=== PATIENT | female | born 1935 | race Caucasian/White ===

== ENCOUNTER 2017-06-22 09:17 | Observation (INO) | payer MEDICARE, OTHER, BC ==
[2017-06-22] MEDS: Sodium Chloride 0.9% 1,000 ML IV SCH ×2 (09:32→23:29)
[2017-06-22] MEDS ORDERED: Sodium Chloride 0.9% 500 ML IV ONE (09:40)
[2017-06-22] MEDS ORDERED: Albuterol/Ipratropium 3.0-0.5 MG/3 ML Neb Soln NEB ONE (09:45)
--- NOTE | 2017-06-22 11:18 | CR ---
DATE OF SERVICE: 06/22/17 CLINICAL DATA: SOB PORTABLE CHEST: Comparison is made to a prior exam dated 06/01/17. The heart size is stable. There is calcification of the aortic arch. There are mild interstitial changes throughout both lungs. There are mild atelectatic changes in both lower lungs. No pneumothorax. No pleural effusions. No areas of consolidation. [id number] MTDD
[2017-06-22] MEDS ORDERED: Furosemide 20 MG/2 ML VIAL ONE (12:24)
[2017-06-22] MEDS: Furosemide 20 MG/2 ML VIAL IVPUSH SCH (18:32)
[2017-06-22] MEDS: [UNRECOGNIZED DRUG - REMARK] NASBOTH SCH (18:41)
[2017-06-22] MEDS: ACETAMINOPHEN PO SCH (19:59)
[2017-06-22] MEDS ORDERED: Furosemide 100 MG/10 ML SDV IVPUSH SCH (20:00)
[2017-06-22] MEDS: Non-Formulary Medication 1 Each (Fluticasone/Salmeterol [Advair 250-50 Diskus] 1 PUFF) INH SCH ×2 (20:00→20:01)
[2017-06-22] MEDS: ATORVASTATIN CALCIUM 10 MG PO SCH (20:00)
[2017-06-22] MEDS ORDERED: Furosemide 20 MG/2 ML VIAL IVPUSH SCH (20:00)
[2017-06-22] MEDS: Tiotropium Inhaler 18 MCG Inhalation Powder Cap Kit of 5 INH SCH (20:02)
--- NOTE | 2017-06-22 20:26 | ER ---
Date of service - 06-22-17 HISTORY OF PRESENT ILLNESS: An 82-year-old lady who comes in with her and son with complaints of weakness and shortness of breath. The patient states she has not felt good all month, she just feels sick. She feels very tired. She does not think she has been coughing up any kind of phlegm. She denies any problems with wheezing and she does not think she has been running a fever. No other family members are currently sick. PHYSICAL EXAMINATION: GENERAL APPEARANCE: The patient is awake and alert. She is in mild respiratory distress initially. This seems to happen with any kind of movement or talking. VITAL SIGNS: Reviewed. Initial blood pressure is 130/52. O2 sats are in the upper 70s on room air. The patient tells us that she normally runs in the high 80s at home. She uses oxygen at night only. Pulse is 127. Respirations 24. HEENT: Ears, TMs are dull. Nares are patent. Oral mucous membranes are dry. Tonsils are not enlarged or injected. Pharynx not inflamed. Neck: Supple. LUNGS: Reveal reduced air exchange in both bases. I do not hear any wheezes or rales initially. CARDIAC: Heart sounds distinct without murmurs. ABDOMEN: Soft, protuberant, nontender to palpation. Bowel sounds are present. SKIN: Warm and dry. EXTREMITIES: There is no lower extremity edema. LABORATORY DATA: Labs include a CBC showing a slightly elevated white count of 11.7. CMP shows a BUN of 21, creatinine 1.02, GFR is 52, glucose 128, nonfasting. BNP is 3322. INITIAL TREATMENT: The patient was placed on oxygen, which did bring her sats up. She was mouth breathing, therefore, we put her on a non-rebreather mask and her sats jumped to 100% on 5 L. We weaned her down and she still maintained in the low 90s on 2 L. INITIAL TREATMENT PLAN: The patient is given a bolus of 500 mL of normal saline. She was given a DuoNeb treatment as well and she stated that she felt much better after this had been done. Chest x-ray was obtained. I can see some mild pulmonary congestion. X-ray report is negative for any acute findings. DIAGNOSES: 1. Congestive heart failure. 2. Weakness. 3. Mild dehydration. TREATMENT PLAN: The patient will be admitted for observation purposes. She is here with her and son, they agree to do this. The patient initially is reluctant to be admitted, but does agree to do this. She will be admitted to observation. CRS/MODL /[id number] MTDD
[2017-06-23] MEDS ORDERED: Non-Formulary Medication 1 Each (Atenolol [Tenormin] 50 MG) PO SCH (08:00)
[2017-06-23] MEDS ORDERED: Non-Formulary Medication 1 Each (Amlodipine Besylate/Benazepril [Amlodipine-Benazepril 5-2 PO SCH (08:00)
[2017-06-23] MEDS: Non-Formulary Medication 1 Each (Fluticasone/Salmeterol [Advair 250-50 Diskus] 1 PUFF) INH SCH ×2 (08:52→19:39)
[2017-06-23] MEDS: Albuterol/Ipratropium 3.0-0.5 MG/3 ML Neb Soln NEB PRN ×2 (08:52→16:15)
[2017-06-23] MEDS: Non-Formulary Medication 1 Each (Aspirin [Bayer Chewable Aspirin] 81 MG) PO SCH (08:53)
[2017-06-23] MEDS: ATENOLOL 25 MG PO SCH (08:54)
[2017-06-23] MEDS: [UNRECOGNIZED DRUG - REMARK] NASBOTH SCH (08:55)
[2017-06-23] MEDS: Furosemide 20 MG/2 ML VIAL IVPUSH SCH ×2 (09:24→14:54)
--- NOTE | 2017-06-23 10:21 | HP ---
HISTORY OF PRESENT ILLNESS: This patient is being admitted for observation due to an exacerbation of CHF, which is also causing weakness and she has mild dehydration symptoms. The patient was seen in the emergency room with complaints of not feeling well for at least 3 weeks, feeling weak and sick. She is tired. Lab work revealed a white count of 11.7. Kidney function was okay with a creatinine of 1.02, BUN 21. BNP is 3,332. UA was also obtained through the emergency room, showing a small amount of proteinuria, 75 to 100 wbc's, and a few bacteria. The patient's vital signs have been okay. Blood pressure initially 130/52, pulse 108, she is afebrile. O2 saturations were initially in the low 70s, but with oxygen applied, she has recovered into the upper 90s. The oxygen was then turned down to 2 L, and she maintained a saturation of 92% with this. PAST MEDICAL HISTORY: 1. Hypertension. 2. History of hiatal hernia. 3. History of seasonal allergies. 4. COPD. PAST SURGICAL HISTORY: 1. Carotid endarterectomy. 2. Ankle fracture in the past, which did require surgery. SOCIAL HISTORY: The patient is . She is still living at home with her . She is a former smoker, telling me that she quit years ago, but the damage was to some degree done. OBJECTIVE: GENERAL APPEARANCE: While seeing the patient a few hours after being admitted to the hospital, she states that she is definitely feeling better. She has had Lasix 20 mg IV. She has voided 1200 mL out using a bedside commode, which she has been doing well with. Her O2 saturations are now stable, even with using the bedside commode with 2 L of oxygen per nasal cannula. LUNGS: Reveal ongoing reduction of air exchange in both bases. I do not hear any rales, wheezes, or rhonchi at this time. SKIN: Warm and dry. CARDIAC: Heart sounds distinct without murmurs. EXTREMITIES: The patient does not have any lower extremity edema. ASSESSMENT AND PLAN: She will be here for observation at least 1 day. She will be given Lasix 20 mg b.i.d. starting out in IV fashion. We will see how she does tomorrow and maybe can switch her over to p.o. at that time. Her IV fluids are running at 30 mL an hour. We did get an EKG and troponin level today, which were also negative. If the patient does continue to improve, there is a reasonable chance she will be able to be discharged tomorrow. PAVEL/MODL /[id number]
--- NOTE | 2017-06-23 12:27 | PN ---
DATE OF VISIT: 06/23/2017 SUBJECTIVE: The patient was admitted yesterday for CHF with mild dehydration and weakness. She has been doing better over the course of her stay. She was given her blood pressure medications last evening and again this morning, which is closer than 24 hours apart and her blood pressure this morning has dropped. Recent blood pressure taken this morning is 105/59, pulse is 131, O2 sats are 92%. The patient states that she feels fine. She did not need a neb treatment or inhaler during the night to help with her breathing. She slept well. Appetite has been good. OBJECTIVE: GENERAL APPEARANCE: The patient is awake and alert. No obvious distress. VITAL SIGNS: Reviewed. Again, blood pressure 105/59, pulse is around 130. She is afebrile. LUNG: The patient has end-expiratory wheezes in both upper lobes, but just minimal and mildly reduced air exchange in both bases. I do not hear any rales or rhonchi at this time. SKIN: Warm and dry. TREATMENT PLAN: The patient will be watched here for one more day. I am little concerned about her blood pressure being low. She got her medications too close together with the dosing in process and this puts her blood pressure down. She also will be given Lasix just once today, which she already has received this morning, 20 mg IV. I was contacted an hour later. The patient's blood pressure had dropped further to 70/40 and she was slightly dizzy. Normal saline was started at 250 an hour. We will give her 1 L to help compensate for the low blood pressure and the patient is instructed to stay in bed except for reducing the commode when she needs to do this with assistance. The patient states that she feels fine, just a little dizzy. She is not having any problems breathing. CRS/MODL /[id number]
[2017-06-23] MEDS: ACETAMINOPHEN PO SCH (16:42)
[2017-06-23] MEDS ORDERED: methylPREDNISolone Sodium Succinate 40 MG/1 ML SDV IVPUSH ONE (18:43)
[2017-06-23] MEDS ORDERED: ALBUTEROL INH PRN (18:46)
[2017-06-23] MEDS: Tiotropium Inhaler 18 MCG Inhalation Powder Cap Kit of 5 INH SCH (19:39)
[2017-06-23] MEDS: ATORVASTATIN CALCIUM 10 MG PO SCH (19:40)
[2017-06-23] MEDS ORDERED: Pramipexole 0.125 MG Tab PO SCH (20:15)
[2017-06-23] MEDS ORDERED: Ondansetron 4 MG Tab.DIS PO PRN (20:43)
[2017-06-23] MEDS: RANITIDINE 150 MG PO SCH (20:54)
[2017-06-24] MEDS: ACETAMINOPHEN PO SCH ×2 (01:17→07:48)
[2017-06-24] MEDS: RANITIDINE 150 MG PO SCH (07:47)
[2017-06-24] MEDS: Non-Formulary Medication 1 Each (Aspirin [Bayer Chewable Aspirin] 81 MG) PO SCH (07:47)
[2017-06-24] MEDS: [UNRECOGNIZED DRUG - REMARK] NASBOTH SCH (07:48)
[2017-06-24] MEDS: Non-Formulary Medication 1 Each (Fluticasone/Salmeterol [Advair 250-50 Diskus] 1 PUFF) INH SCH (07:48)
[2017-06-24] MEDS: Albuterol/Ipratropium 3.0-0.5 MG/3 ML Neb Soln NEB PRN (07:50)
[2017-06-24] MEDS ORDERED: TIOTROPIUM BROMIDE INH SCH (08:00)
[2017-06-24] MEDS ORDERED: RANITIDINE HCL 300 MG PO SCH (08:00)
[2017-06-24] MEDS ORDERED: Furosemide 20 MG Tab PO SCH (08:00)
[2017-06-24] MEDS ORDERED: Non-Formulary Medication 1 Each (Lidocaine 5% [Lidoderm 5%] 1 PATCH) TOP SCH (08:00)
[2017-06-24] MEDS: ATENOLOL 25 MG PO SCH (08:48)
--- NOTE | 2017-06-24 08:59 | PCM.PN ---
- General Info Date of Service: 06/24/17 Subjective Update: Pt claims that she has been feeling better today. She feels more energetic today. Has not been short of breath. No fever or chills. No cough or chest tightness. Tolerating diet well.She is on oxygen 2-4 litres/min. Functional Status: Reports: Pain Controlled, Tolerating Diet, Ambulating, Urinating, Incentive Spirometry - Review of Systems General: Denies: Fever, Weakness, Fatigue, Malaise HEENT: Denies: Sinus Congestion, Sore Throat, Rhinitis Pulmonary: Denies: Shortness of Breath, Pleuritic Chest Pain, Cough, Sputum, Wheezing Cardiovascular: Denies: Chest Pain, Lightheadedness Gastrointestinal: Denies: Abdominal Pain, Nausea, Vomiting Genitourinary: Denies: Dysuria, Frequency Musculoskeletal: Denies: Joint Pain, Joint Swelling Skin: Denies: Bruising, Pruritis, Rash Neurological: Denies: Confusion, Headache - Patient Data Vitals - Most Recent: Last Vital Signs Temp 96.8 F 06/24/17 04:00 Pulse 118 H 06/24/17 04:00 Resp 18 06/24/17 04:00 BP 106/65 06/24/17 08:48 Pulse Ox 85 L 06/24/17 04:00 Weight - Most Recent: 74.843 kg I&O - Last 24 Hours: Intake & Output 06/23/17 06/24/17 06/24/17 22:59 06:59 14:59 Intake Total 100 Output Total 350 Balance -250 Lab Results Last 24 Hours: Laboratory Results - last 24 hr 06/24/17 Range/Units 07:15 Sodium 138 (136-145) mmol/L Potassium 4.5 (3.5-5.1) mmol/L Chloride 100 (98-107) mmol/L Carbon Dioxide 26.8 (21.0-32.0) mmol/L Anion Gap 15.7 H (5.0-15.0) mmol/L BUN 25 (8-26) mg/dL Creatinine 1.08 H (0.55-1.02) mg/dL Est Cr Clr Drug Dosing 36.30 mL/min Estimated GFR (MDRD) 48 L (>60) MLS/MIN BUN/Creatinine Ratio 23.1 (6-25) Glucose 203 H D (74-100) mg/dL Calcium 8.5 (8.5-10.1) mg/dL Total Bilirubin 0.6 D (0.0-1.0) mg/dL AST 14 L (15-37) U/L ALT 13 (12-78) U/L Alkaline Phosphatase 74 (46-116) U/L B-Natriuretic Peptide 809 H D (0-450) pg/mL Total Protein 6.4 (6.4-8.2) g/dL Albumin 2.5 L (3.4-5.0) g/dL Globulin 3.9 (2.2-4.2) g/dL Albumin/Globulin Ratio 0.6 L (0.8-2.0) Jose Results Last 24 Hours: Microbiology 06/22/17 12:42 MRSA Surveillance Culture - Final Nasal, Unspecified NO MRSA ISOLATED Med Orders - Current: Current Medications Albuterol/Ipratropium (Duoneb 3.0-0.5 Mg/3 Ml) 3 ml NEB Q6H PRN PRN Reason: Shortness of Breath Stop: 06/24/17 12:00 Last Admin: 06/24/17 07:50 Dose: 3 ml Enalapril Maleate (Vasotec) 2.5 mg PO DAILY [facility] Last Admin: 06/24/17 08:48 Dose: 2.5 mg Furosemide (Lasix) 20 mg PO DAILY [facility] Last Admin: 06/24/17 08:44 Dose: Not Given Sodium Chloride (Normal Saline) 1,000 mls @ 30 mls/hr IV ASDIRECTED [facility] Last Admin: 06/22/17 23:29 Dose: 30 mls/hr Montelukast Sodium (Singulair) 10 mg PO QPM [facility] Non-Formulary Medication (Acetaminophen [Tylenol Arthritis]) 2 tab PO BID [facility] Last Admin: 06/24/17 07:48 Dose: Not Given Non-Formulary Medication (Aspirin [Kylie Chewable Aspirin]) 81 mg PO DAILY [facility] Last Admin: 06/24/17 07:47 Dose: 81 mg Non-Formulary Medication (Atorvastatin Calcium [Atorvastatin Calcium]) 10 mg PO QPM [facility] Last Admin: 06/23/17 19:40 Dose: Not Given Non-Formulary Medication (Fluticasone Propionate [Flonase Allergy Relief]) 1 - 2 spray NASBOTH DAILY [facility] Stop: 06/26/17 08:01 Last Admin: 06/24/17 07:48 Dose: Not Given Non-Formulary Medication (Fluticasone/Salmeterol [Advair 250-50 Diskus]) 1 puff INH BID [facility] Last Admin: 06/24/17 07:48 Dose: 1 puff Atenolol 25mg Tabs 1 each PO DAILY [facility] Last Admin: 06/24/17 08:48 Dose: 1 each Non-Formulary Medication (Albuterol [Ventolin Hfa]) 1 - 2 puff INH Q4HR PRN PRN Reason: Shortness of Breath Stop: 06/24/17 18:00 Non-Formulary Medication (Lidocaine 5% [Lidoderm 5%]) 1 patch TOP DAILY [facility] Ondansetron HCl (Zofran Odt) 4 mg PO Q6H PRN PRN Reason: Nausea/Vomiting Pramipexole Dihydrochloride (Mirapex) 0.125 mg PO QPM [facility] Last Admin: 06/24/17 01:17 Dose: Not Given Ranitidine HCl (Zantac) 300 mg PO BID [facility] Last Admin: 06/24/17 07:47 Dose: 300 mg Tiotropium [place] (Spiriva Handihaler) 18 mcg INH BEDTIME [facility] Last Admin: 06/23/17 19:39 Dose: 1 tab Discontinued Medications Albuterol/Ipratropium (Duoneb 3.0-0.5 Mg/3 Ml) 3 ml NEB ONETIME ONE Stop: 06/22/17 09:46 Last Admin: 06/22/17 14:20 Dose: Not Given Furosemide (Lasix) 20 mg IVPUSH BID [facility] Last Admin: 06/22/17 12:30 Dose: 20 mg Furosemide (Lasix) 20 mg IVPUSH BID [facility] Stop: 06/23/17 12:00 Furosemide (Lasix) Confirm Administered Dose 20 mg .ROUTE .STK-MED ONE Stop: 06/22/17 12:25 Last Admin: 06/22/17 12:30 Dose: Not Given Furosemide (Lasix) 20 mg IVPUSH BID@0800,1400 [facility] Last Admin: 06/23/17 14:54 Dose: Not Given Sodium Chloride (Normal Saline) 500 mls @ 500 mls/hr IV .BOLUS ONE Stop: 06/22/17 10:39 Last Admin: 06/22/17 09:42 Dose: 500 mls/hr Methylprednisolone Sodium Succinate (Solu-Medrol) 80 mg IVPUSH ONETIME ONE Stop: 06/23/17 18:44 Last Admin: 06/23/17 19:27 Dose: 80 mg Non-Formulary Medication (Amlodipine Besylate/Benazepril [Amlodipine-Benazepril 5-20 Mg]) 1 cap PO DAILY [facility] Last Admin: 06/23/17 08:54 Dose: 1 cap Non-Formulary Medication (Ranitidine Hcl [Zantac]) 300 mg PO DAILY [facility] Ranitidine HCl (Zantac) 300 mg PO DAILY [facility] Last Admin: 06/23/17 08:54 Dose: 300 mg - Exam Quality Assessment: Supplemental Oxygen General: Alert, Oriented HEENT: Pupils Equal, Pupils Reactive, EOMI, Mucous Membr. Moist/[place] Neck: Supple Lungs: Clear to Auscultation, Normal Respiratory Effort Cardiovascular: Regular Rate, Regular Rhythm GI/Abdominal Exam: Normal Bowel Sounds, Soft, Non-Tender, No Organomegaly, No Distention, No Abnormal Bruit, No Mass, Pelvis Stable Extremities: Normal Inspection, Normal Range of Motion, Non-Tender, No Pedal Edema, Normal Capillary Refill Skin: Warm, Intact - Problem List & Annotations (1) Congestive heart failure SNOMED Code(s): 78805791 Code(s): I50.9 - HEART FAILURE, UNSPECIFIED Status: Acute Current Visit: Yes Onset Date: ~06/22/17 Annotation/Comment:: 06/22/17 - 1. Congestive heart failure, 2. Weakness, 3. Mild dehydration - Problem List Review Problem List Initiated/Reviewed/Updated: Yes - My Orders Last 24 Hours: CHF improving - Assessment Assessment:: Pt has been clinically feeling better. No weakness or shortness of breath. Tolerating diet. Also her BNP is down form 3300 to 800s today.No lower extremity edema and lung are clear to auscultation. Her Morning BP is in 106/ 65mmhg, will hold of her lasix. Pt will need ECHO cardiogram scheduled. Will try to titrate oxygen down and discontinue during day time and see, if she is able to do her ADLS. PT does uses oxygen at bedtime which we will continue.
[2017-06-24] MEDS ORDERED: Budesonide 0.5 MG/2 ML Neb Susp NEB ONE (14:04)
[2017-06-24] MEDS ORDERED: methylPREDNISolone Sodium Succinate 125 MG/2 ML SDV IVPUSH ONE (14:04)
[2017-06-24 14:37] VITALS: BP 98/61
--- NOTE | 2017-06-24 16:46 | PCM.DCSUM1 ---
Discharge Summary - Hospital Course Free Text/Narrative:: Pt was admitted with COPD exacerbation with new onset CHF. Pt's BNP was 3300. She was started on vasotec 2.5mg daily and also on lasix 20mg BID. Her COPD was treated with solumedrol. Pt had some improvement with her shortness of breath by day 1, but still having exertional dyspnea. Pt was closely monitored. She SpO2 did drop with day time exertion. On day 2 Pt was feeling better. More energetic. Tolerating diet well. Her breathing had improved. Also her BNP was down from 3330 to 809. Renal function were stable. Clinically lungs were clear and also had no lower extremity edema. Pt did receive solumedrol 125mg IV and also pulmicort nebulizer. By the end of the day, pt was able to walk about good 100yards before she got dyspnec, which had improved. Pt does not move more than that distance at home at a time. Pt appears to be at her baseline. Will have her ECHO done next thursday. Will continue home meds. I have discontinue her lotrel and kept her on vasotec 2.5mg. Also started her on tapering dose of prednsione. Pt to followup with Dr. Rivers on 07/02/17. Brief History: Pt was admitted with SOB and was daignosed with COPD exacerbation with new onset CHF. Kindly see H&P for details - Discharge Data Discharge Date: 06/24/17 Discharge Disposition: Home, Self-Care 01 Condition: Good - Discharge Diagnosis/Problem(s) (1) Congestive heart failure SNOMED Code(s): 51890698 ICD Code: I50.9 - HEART FAILURE, UNSPECIFIED Status: Acute Current Visit : Yes Onset Date: ~06/22/17 Problem Details: 06/22/17 - 1. Congestive heart failure, 2. Weakness, 3. Mild dehydration - Patient Instructions Diet: Low Sodium Fluid Restriction: 1500 mL Activity: As Tolerated Showering/Bathing: August Shower - Discharge Plan Home Medications: Home Meds Acetaminophen [Tylenol Arthritis] 2 tab PO BID 04/19/16 [History] Albuterol [Ventolin HFA] 1 - 2 puff INH Q4HR PRN 04/19/16 [History] Aspirin [Kylie Chewable Aspirin] 81 mg PO DAILY 04/19/16 [History] Atenolol [Tenormin] 50 mg PO DAILY 04/19/16 [History] Fluticasone Propionate [Flonase Allergy Relief] 1 - 2 spray NASBOTH DAILY [History] Fluticasone/Salmeterol [Advair 250-50 Diskus] 1 puff INH BID 04/19/16 [History] Lidocaine 5% [Lidoderm 5%] 1 patch TOP DAILY 04/19/16 [History] Montelukast Sodium [Singulair] 10 mg PO QPM 04/19/16 [History] Pramipexole Di-HCl [Pramipexole Dihydrochloride] 0.125 mg PO QPM 04/19/16 [ History] Tiotropium Riner [Spiriva] 1 inh INH DAILY 04/19/16 [History] atorvaSTATin Calcium [Atorvastatin Calcium] 10 mg PO QPM 04/19/16 [History] Ranitidine HCl [Zantac] 300 mg PO DAILY 06/22/17 [History] Fluticasone/Salmeterol [Advair 250-50 Diskus] 1 puff INH BID 06/24/17 [Rx] Ondansetron [Zofran ODT] 4 mg PO Q6H PRN tab.dis 06/24/17 [Rx] Tiotropium [Spiriva HandiHaler] 18 mcg INH BEDTIME cap 06/24/17 [Rx] Patient Handouts: Heart-Healthy Eating Plan, [id number], Chronic Obstructive Pulmonary Disease, Xaio-sb-Pmic, Home Oxygen Use, Adult, Low-Sodium Eating Plan , Heart Failure, [id number] Forms: Take Home DC Nutrition Plan Referrals: Ileana Shannon, [employer] [Primary Care Provider] - - Discharge Summary/Plan Comment DC Time >30 min.: Yes Discharge Summary/Plan Comment: Will have her ECHO done next thursday. Will continue home meds. I have discontinue her lotrel and kept her on vasotec 2.5mg. Also started her on tapering dose of prednsione. Pt to followup with Dr. Rivers on 07/02/17. - General Info Date of Service: 06/24/17 Functional Status: Reports: Tolerating Diet, Ambulating, Urinating, Incentive Spirometry - Review of Systems General: Denies: Fever, Weakness HEENT: Denies: Rhinitis, Visual Changes Pulmonary: Denies: Shortness of Breath, Pleuritic Chest Pain, Cough, Sputum, Hemoptysis Cardiovascular: Denies: Chest Pain, Lightheadedness Gastrointestinal: Denies: Decreased Appetite, Nausea, Vomiting Genitourinary: Denies: Dysuria, Frequency Musculoskeletal: Denies: Joint Pain, Joint Swelling Skin: Denies: Pruritis, Rash Neurological: Denies: Confusion, Headache - Patient Data Vitals - Most Recent: Last Vital Signs Temp 98.2 F 06/24/17 12:00 Pulse 98 06/24/17 13:00 Resp 18 06/24/17 12:00 BP 98/61 06/24/17 13:00 Pulse Ox 94 L 06/24/17 12:00 Weight - Most Recent: 74.843 kg I&O - Last 24 hours: Intake & Output 06/24/17 06/24/17 06/24/17 06:59 14:59 22:59 Intake Total 100 Output Total 350 Balance -250 Lab Results - Last 24 hrs: Laboratory Results - last 24 hr 06/24/17 06/24/17 Range/Units 07:15 07:15 WBC 4.8 D (4.0-11.0) K/uL RBC 3.90 (3.80-5.80) M/uL Hgb 11.3 L (11.5-16.5) g/dL Hct 36.2 L (37.0-47.0) % MCV 93 (76-96) fL MCH 29.0 (27.0-32.0) pg MCHC 31.2 (31.0-35.0) g/dL RDW 15.5 (11.0-16.0) % Plt Count 75 L D (150-500) K/uL MPV 11.2 H (6.0-10.0) fL Neut % (Auto) 90.0 H (45.0-70.0) % Lymph % (Auto) 7.7 L (20.0-40.0) % [place] % (Auto) 2.1 L (3.0-10.0) % Eos % (Auto) 0.2 L (1.0-5.0) % Baso % (Auto) 0.0 (0.0-0.5) % Neut # (Auto) 4.30 (2.00-7.50) K/uL Lymph # (Auto) 0.37 L (1.50-4.00) K/uL [facility] [place] # (Auto) 0.10 L (0.20-0.80) K/uL Eos # (Auto) 0.01 L (0.04-0.40) K/uL Baso # (Auto) 0.00 L (0.02-0.10) K/uL Sodium 138 (136-145) mmol/L Potassium 4.5 (3.5-5.1) mmol/L Chloride 100 (98-107) mmol/L Carbon Dioxide 26.8 (21.0-32.0) mmol/L Anion Gap 15.7 H (5.0-15.0) mmol/L BUN 25 (8-26) mg/dL Creatinine 1.08 H (0.55-1.02) mg/dL Est Cr Clr Drug Dosing 36.30 mL/min Estimated GFR (MDRD) 48 L (>60) MLS/MIN BUN/Creatinine Ratio 23.1 (6-25) Glucose 203 H D (74-100) mg/dL Calcium 8.5 (8.5-10.1) mg/dL Total Bilirubin 0.6 D (0.0-1.0) mg/dL AST 14 L (15-37) U/L ALT 13 (12-78) U/L Alkaline Phosphatase 74 (46-116) U/L B-Natriuretic Peptide 809 H D (0-450) pg/mL Total Protein 6.4 (6.4-8.2) g/dL Albumin 2.5 L (3.4-5.0) g/dL Globulin 3.9 (2.2-4.2) g/dL Albumin/Globulin Ratio 0.6 L (0.8-2.0) Med Orders - Current: Current Medications Enalapril Maleate (Vasotec) 2.5 mg PO DAILY [facility] Last Admin: 06/24/17 08:48 Dose: 2.5 mg Furosemide (Lasix) 20 mg PO DAILY [facility] Last Admin: 06/24/17 08:44 Dose: Not Given Sodium Chloride (Normal Saline) 1,000 mls @ 30 mls/hr IV ASDIRECTED [facility] Last Admin: 06/22/17 23:29 Dose: 30 mls/hr Montelukast Sodium (Singulair) 10 mg PO QPM [facility] Non-Formulary Medication (Acetaminophen [Tylenol Arthritis]) 2 tab PO BID [facility] Last Admin: 06/24/17 07:48 Dose: Not Given Non-Formulary Medication (Aspirin [Kylie Chewable Aspirin]) 81 mg PO DAILY [facility] Last Admin: 06/24/17 07:47 Dose: 81 mg Non-Formulary Medication (Atorvastatin Calcium [Atorvastatin Calcium]) 10 mg PO QPM [facility] Last Admin: 06/23/17 19:40 Dose: Not Given Non-Formulary Medication (Fluticasone Propionate [Flonase Allergy Relief]) 1 - 2 spray NASBOTH DAILY [facility] Stop: 06/26/17 08:01 Last Admin: 06/24/17 07:48 Dose: Not Given Non-Formulary Medication (Fluticasone/Salmeterol [Advair 250-50 Diskus]) 1 puff INH BID [facility] Last Admin: 06/24/17 07:48 Dose: 1 puff Atenolol 25mg Tabs 1 each PO DAILY [facility] Last Admin: 06/24/17 08:48 Dose: 1 each Non-Formulary Medication (Albuterol [Ventolin Hfa]) 1 - 2 puff INH Q4HR PRN PRN Reason: Shortness of Breath Stop: 06/24/17 18:00 Non-Formulary Medication (Lidocaine 5% [Lidoderm 5%]) 1 patch TOP DAILY [facility] Ondansetron HCl (Zofran Odt) 4 mg PO Q6H PRN PRN Reason: Nausea/Vomiting Pramipexole Dihydrochloride (Mirapex) 0.125 mg PO QPM [facility] Last Admin: 06/24/17 01:17 Dose: Not Given Ranitidine HCl (Zantac) 300 mg PO BID [facility] Last Admin: 06/24/17 07:47 Dose: 300 mg Tiotropium Riner (Spiriva Handihaler) 18 mcg INH BEDTIME [facility] Last Admin: 06/23/17 19:39 Dose: 1 tab Discontinued Medications Albuterol/Ipratropium (Duoneb 3.0-0.5 Mg/3 Ml) 3 ml NEB ONETIME ONE Stop: 06/22/17 09:46 Last Admin: 06/22/17 14:20 Dose: Not Given Albuterol/Ipratropium (Duoneb 3.0-0.5 Mg/3 Ml) 3 ml NEB Q6H PRN PRN Reason: Shortness of Breath Stop: 06/24/17 12:00 Last Admin: 06/24/17 07:50 Dose: 3 ml Budesonide (Pulmicort) 0.5 mg NEB ONETIME ONE Stop: 06/24/17 14:05 Last Admin: 06/24/17 14:15 Dose: 0.5 mg Furosemide (Lasix) 20 mg IVPUSH BID [facility] Last Admin: 06/22/17 12:30 Dose: 20 mg Furosemide (Lasix) 20 mg IVPUSH BID [facility] Stop: 06/23/17 12:00 Furosemide (Lasix) Confirm Administered Dose 20 mg .ROUTE .STK-MED ONE Stop: 06/22/17 12:25 Last Admin: 06/22/17 12:30 Dose: Not Given Furosemide (Lasix) 20 mg IVPUSH BID@0800,1400 [facility] Last Admin: 06/23/17 14:54 Dose: Not Given Sodium Chloride (Normal Saline) 500 mls @ 500 mls/hr IV .BOLUS ONE Stop: 06/22/17 10:39 Last Admin: 06/22/17 09:42 Dose: 500 mls/hr Methylprednisolone Sodium Succinate (Solu-Medrol) 80 mg IVPUSH ONETIME ONE Stop: 06/23/17 18:44 Last Admin: 06/23/17 19:27 Dose: 80 mg Methylprednisolone Sodium Succinate (Solu-Medrol) 125 mg IVPUSH ONETIME ONE Stop: 06/24/17 14:05 Last Admin: 06/24/17 14:28 Dose: 125 mg Non-Formulary Medication (Amlodipine Besylate/Benazepril [Amlodipine-Benazepril 5-20 Mg]) 1 cap PO DAILY [facility] Last Admin: 06/23/17 08:54 Dose: 1 cap Non-Formulary Medication (Ranitidine Hcl [Zantac]) 300 mg PO DAILY [facility] Ranitidine HCl (Zantac) 300 mg PO DAILY [facility] Last Admin: 06/23/17 08:54 Dose: 300 mg - Exam Quality Assessment: Reports: Supplemental Oxygen General: Reports: Alert, Oriented HEENT: Reports: Pupils Equal, Pupils Reactive, EOMI, Mucous Membr. Moist/[place] Neck: Reports: Supple Lungs: Reports: Clear to Auscultation, Normal Respiratory Effort Cardiovascular: Reports: Regular Rate, Regular Rhythm GI/Abdominal Exam: Normal Bowel Sounds, Soft, Non-Tender, No Organomegaly, No Distention, No Abnormal Bruit, No Mass, Pelvis Stable Back Exam: Reports: Normal Inspection, Full Range of Motion Extremities: Normal Inspection, Normal Range of Motion, Non-Tender, No Pedal Edema, Normal Capillary Refill Skin: Reports: Warm, Intact Psy/Mental Status: Reports: Alert, Normal Mood *Q Meaningful Use (DIS) - VTE *Q VTE Criteria *Q: - Stroke *Q Stroke Criteria *Q: - AMI *Q AMI Criteria *Q:
[2017-06-24] MEDS ORDERED: Montelukast 10 MG Tab PO SCH (20:00)
== END 2017-06-24 17:22 | disposition home or self-care (01) ==
LOC: LB.ED 09:17 → UNDOADMOB 11:15 → LB.MS 11:15
PROVIDERS: ADMIT Physician Assistant; ATTEND Physician Assistant
DX: J44.1 Chronic obstructive pulmonary disease with (acute) exacerbation (principal); I11.0 Hypertensive heart disease with heart failure; I50.9 Heart failure, unspecified; E86.0 Dehydration; J30.2 Other seasonal allergic rhinitis; Z79.82 Long term (current) use of aspirin; Z79.899 Other long term (current) drug therapy; Z87.891 Personal history of nicotine dependence
CPT/HCPCS: 36415; 71045; 80053; 81001; 83880; 84484; 85025; 93005; 96360; 99217; 99219; 99224; 99285-25; A9270-GY; J1940; J2920; J2930; J7040; J7620

== ENCOUNTER 2018-12-15 08:04 | Inpatient (IN) | payer OTHER ==
[2018-12-15] MEDS ORDERED: Albuterol 8 GM Inhaler INH PRN (13:53)
--- NOTE | 2018-12-15 14:07 | PCM.HP.2 ---
H&P History of Present Illness - General Date of Service: 12/15/18 Admit Problem/Dx: Admission Diagnosis/Problem Admission Diagnosis/Problem Surgical procedure Source of Information: Old Records - History of Present Illness Initial Comments - Free Text/Narative: This is a 83yo F here for respite care to help her in preparation of her colonoscopy. - Related Data Allergies/Adverse Reactions: Allergies Allergy/AdvReac Type Severity Reaction Status Date / Time amoxicillin Allergy Cannot Verified 06/22/17 09:31 Remember Penicillins Allergy Cannot Verified 06/22/17 09:31 Remember Home Medications: Home Meds Acetaminophen [Tylenol Arthritis] 2 tab PO BID 04/19/16 [History] Albuterol [Ventolin HFA] 1 - 2 puff INH Q4HR PRN 04/19/16 [History] Aspirin [Kylie Chewable Aspirin] 81 mg PO DAILY 04/19/16 [History] Atenolol [Tenormin] 50 mg PO DAILY 04/19/16 [History] Fluticasone Propionate [Flonase Allergy Relief] 1 - 2 spray NASBOTH DAILY [History] Fluticasone/Salmeterol [Advair 250-50 Diskus] 1 puff INH BID 04/19/16 [History] Lidocaine 5% [Lidoderm 5%] 1 patch TOP DAILY 04/19/16 [History] Montelukast Sodium [Singulair] 10 mg PO QPM 04/19/16 [History] Pramipexole Di-HCl [Pramipexole Dihydrochloride] 0.125 mg PO QPM 04/19/16 [ History] Tiotropium Tye [Spiriva] 1 inh INH DAILY 04/19/16 [History] atorvaSTATin Calcium [Atorvastatin Calcium] 10 mg PO QPM 04/19/16 [History] Ranitidine HCl [Zantac] 300 mg PO DAILY 06/22/17 [History] Fluticasone/Salmeterol [Advair 250-50 Diskus] 1 puff INH BID 06/24/17 [Rx] Ondansetron [Zofran ODT] 4 mg PO Q6H PRN tab.dis 06/24/17 [Rx] Tiotropium [Spiriva HandiHaler] 18 mcg INH BEDTIME cap 06/24/17 [Rx] Past Medical History HEENT History: Reports: Allergic Rhinitis, Cataract Cardiovascular History: Reports: High Cholesterol, Hypertension Other Cardiovascular History: 3cm aortic bulging. Respiratory History: Reports: Asthma, COPD, Pneumonia, Recurrent Gastrointestinal History: Reports: GERD, Hemorrhoids, Hiatal Hernia Genitourinary History: Reports: UTI, Recurrent STUNT PERSON History: Reports: Musculoskeletal History: Reports: Arthritis, Back Pain, Chronic, Osteoarthritis - Infectious Disease History Infectious Disease History: Reports: C-Difficile, Chicken Pox, Measles, Mumps, RSV, Shingles - Past Surgical History HEENT Surgical History: Reports: Cataract Surgery, Radiocarotid Ectomy Cardiovascular Surgical History: Reports: Carotid Endarterectomy Social & Family History - Family History Family Medical History: Noncontributory OBGYN: Reports: None Neurological: Reports: None Psychiatric: Reports: None Endocrine/Metabolic: Reports: None Hematologic: Reports: None Oncologic: Reports: Breast - Caffeine Use Caffeine Use: Reports: Coffee, Soda H&P Review of Systems - Review of Systems: Review Of Systems: ROS reveals no pertinent complaints other than HPI. Exam - Exam Exam: See Below - Exam General: Alert Lungs: Clear to Auscultation, Normal Respiratory Effort Cardiovascular: Regular Rate, Regular Rhythm - Problem List (1) Colonoscopy planned SNOMED Code(s): 767636267 ICD Code: [id number] - Status: Acute Current Visit: Yes Problem List Initiated/Reviewed/Updated: Yes Orders Last 24hrs: Active Orders 24 hr Category Date Time Status Patient Status [ADT] Routine ADT 12/15/18 12:19 Active Acetaminophen [Tylenol Arthritis Pain] Med 12/15/18 20:00 Active 1,300 mg PO BID Albuterol [Ventolin HFA] Med 12/15/18 13:53 Active 8 gm INH Q4H PRN Aspirin [Halfprin] Med 12/16/18 08:00 Active 81 mg PO DAILY Atenolol [Tenormin] Med 12/16/18 08:00 Active 25 mg PO DAILY Ciprofloxacin [Ciprofloxacin HCl] Med 12/16/18 08:00 Active 125 mg PO DAILY Non-Formulary Medication [NF Drug] Med 12/15/18 20:00 Active 1 each INH BID Omeprazole Med 12/16/18 08:00 Active 20 mg PO DAILY Tiotropium [Spiriva HandiHaler] Med 12/16/18 08:00 Active 18 mcg INH DAILY Medication Orders Acetaminophen (Tylenol Arthritis Pain) 1,300 mg PO BID [facility] Albuterol (Ventolin Hfa) 8 gm INH Q4H PRN PRN Reason: Shortness of Breath Aspirin (Halfprin) 81 mg PO DAILY [facility] Atenolol (Tenormin) 25 mg PO DAILY [facility] Ciprofloxacin (Ciprofloxacin Hcl) 125 mg PO DAILY [facility] Advair Diskus 100/50 (Inhaler) 1 each INH BID [facility] Omeprazole (Omeprazole) 20 mg PO DAILY [facility] Tiotropium Tye (Spiriva Handihaler) 18 mcg INH DAILY [facility] Assessment/Plan Comment:: Patient to be assisted for prep for colonoscopy.
[2018-12-15] MEDS: ADVAIR INH SCH (19:57)
[2018-12-15] MEDS: Acetaminophen 650 MG Tab.ER PO SCH (19:57)
[2018-12-15 20:00] VITALS: BP 142/73; PULSE 81
[2018-12-16] MEDS ORDERED: Ciprofloxacin 250 MG Tab PO SCH (08:00)
[2018-12-16] MEDS ORDERED: Aspirin 81 MG Tab.EC PO SCH (08:00)
[2018-12-16] MEDS ORDERED: Omeprazole 20 MG Cap.CR PO SCH (08:00)
[2018-12-16] MEDS ORDERED: Atenolol 25 MG Tab PO SCH (08:00)
[2018-12-16] MEDS ORDERED: Tiotropium Inhaler 18 MCG Inhalation Powder Cap Kit of 5 INH SCH (08:00)
--- NOTE | 2018-12-17 16:08 | PCM.DCSUM1 ---
Discharge Summary - Discharge Data Discharge Date: 12/16/18 Discharge Disposition: DC/Tfer to Other 70 Condition: Good - Referral to Home Health Primary Care Physician: PCP None - Discharge Diagnosis/Problem(s) (1) Colonoscopy planned SNOMED Code(s): 425606193 ICD Code: [id number] - Status: Acute - Discharge Plan Home Medications: Home Meds Acetaminophen [Tylenol Arthritis] 2 tab PO BID 04/19/16 [History] Albuterol [Ventolin HFA] 1 - 2 puff INH Q4HR PRN 04/19/16 [History] Aspirin [Kylie Chewable Aspirin] 81 mg PO DAILY 04/19/16 [History] Atenolol [Tenormin] 25 mg PO DAILY 04/19/16 [History] Fluticasone/Salmeterol [Advair 250-50 Diskus] 1 puff INH BID 04/19/16 [History] Tiotropium Donaldson [Spiriva] 1 inh INH DAILY 04/19/16 [History] Ciprofloxacin [Ciprofloxacin HCl] 250 mg PO DAILY 12/15/18 [History] Omeprazole 20 mg PO DAILY 12/15/18 [History] - Discharge Summary/Plan Comment DC Time >30 min.: No Discharge Summary/Plan Comment: Patient discharged to same day surgery. - Patient Data Vitals - Most Recent: Last Vital Signs Temp 36.4 C 12/15/18 19:59 Pulse 81 12/15/18 19:59 Resp 18 12/15/18 19:59 BP 142/73 H 12/15/18 19:59 Pulse Ox 97 12/15/18 19:59 Weight - Most Recent: 75.296 kg Med Orders - Current: Current Medications Discontinued Medications Acetaminophen (Tylenol Arthritis Pain) 1,300 mg PO BID [facility] Last Admin: 12/15/18 19:57 Dose: 1,300 mg Albuterol (Ventolin Hfa) 8 gm INH Q4H PRN PRN Reason: Shortness of Breath Aspirin (Halfprin) 81 mg PO DAILY [facility] Atenolol (Tenormin) 25 mg PO DAILY [facility] Ciprofloxacin (Ciprofloxacin Hcl) 125 mg PO DAILY [facility] Advair Diskus 100/50 (Inhaler) 1 each INH BID [facility] Last Admin: 12/15/18 19:57 Dose: 1 each Omeprazole (Omeprazole) 20 mg PO DAILY [facility] Tiotropium Donaldson (Spiriva Handihaler) 18 mcg INH DAILY [facility]
== END 2018-12-16 07:10 | disposition other institution (70) | DRG 951 ==
LOC: LB.MS 11:59 → UNDOADMIN 11:59 → LB.MS 12:03
PROVIDERS: ADMIT Family Medicine; ATTEND Family Medicine
DX: Z41.8 Encounter for other procedures for purposes other than remedying health state (principal); E78.00 Pure hypercholesterolemia, unspecified; I10 Essential (primary) hypertension; J44.9 Chronic obstructive pulmonary disease, unspecified; K21.9 Gastro-esophageal reflux disease without esophagitis; M19.90 Unspecified osteoarthritis, unspecified site; M54.9 Dorsalgia, unspecified; H54.8 Legal blindness, as defined in USA; G89.29 Other chronic pain; Z98.890 Other specified postprocedural states; Z98.49 Cataract extraction status, unspecified eye; Z88.0 Allergy status to penicillin; Z79.51 Long term (current) use of inhaled steroids; Z79.82 Long term (current) use of aspirin; Z79.899 Other long term (current) drug therapy; Z87.440 Personal history of urinary (tract) infections; Z99.81 Dependence on supplemental oxygen
CPT/HCPCS: A9270-GY

== ENCOUNTER 2018-12-16 07:11 | Day surgery (SDC) | payer MEDICARE, OTHER ==
[~2018-12-16 07:11] MED LIST: Metoclopramide 10 MG/2 ML SDV IV PRN; Sodium Chloride 0.9% 1,000 ML IV SCH
[2018-12-16] MEDS ORDERED: Propofol 200 MG/20 ML SDV ONE (14:45)
[2018-12-16 15:31] VITALS: BP 140/64; PULSE 99
--- NOTE | 2018-12-16 21:32 | OR ---
DATE OF OPERATION: 12/16/2018 SURGEON: Tyree Mazariegos MD PREOPERATIVE DIAGNOSIS: Colon polyps. POSTOPERATIVE DIAGNOSIS: Colon polyps. PROCEDURE: Colonoscopy with polypectomy x2. ANESTHESIA: MAC. ESTIMATED BLOOD LOSS: Minimal. COMPLICATIONS: None. INDICATION FOR THE PROCEDURE: The patient is an 83-year-old female who 4 years ago was scoped for C diff. She was found to have polyps at that time. No polyps were removed due to her active infection that was 4 years ago. She is here today for her first colonoscopy since then for the recommended removal of those polyps. She otherwise denies any change in bowel habits since then. DESCRIPTION OF PROCEDURE: Informed consent was obtained from the patient. The patient was taken to the operating room, placed on table in left lateral decubitus position. Monitored anesthesia care was administered. Digital rectal exam performed and was normal. Colonoscope then advanced through the anus, directed toward the cecum. Cecum was reached and identified by appendiceal orifice and ileocecal valve. She did have a small sessile polyp in the proximal sigmoid colon and this was removed with cold biopsy forceps. She had a second small semi-pedunculated polyp in the distal sigmoid colon. This was removed with hot snare cautery. Colonoscope then withdrawn slowly. She does some moderate sigmoid diverticulosis present as well. Otherwise, colon was desufflated and colonoscope removed. FINDINGS: Sigmoid colon polyps x2. RECOMMENDATIONS: We will follow up on pathology. Nothing concerning here from cancer standpoint. Would not recommend any further colonoscopies due to age. VALERIE/DEEP /[id number]
== END 2018-12-16 16:10 | disposition home or self-care (01) ==
LOC: LB.SDS 07:11
PROVIDERS: ATTEND Surgery
DX: Z12.11 Encounter for screening for malignant neoplasm of colon (principal); D12.5 Benign neoplasm of sigmoid colon; K63.5 Polyp of colon; K57.30 Diverticulosis of large intestine without perforation or abscess without bleeding; I10 Essential (primary) hypertension; J44.9 Chronic obstructive pulmonary disease, unspecified; Z88.0 Allergy status to penicillin; Z86.010 Personal history of colon polyps
CPT/HCPCS: 45380; 45385; 87493; 88305; G0121; J2704

== ENCOUNTER 2019-02-04 18:44 | Emergency (ER) | payer MEDICARE, OTHER ==
[2019-02-04 19:45] VITALS: BP 101/43; PULSE 101
[2019-02-04] MEDS ORDERED: Furosemide 20 MG Tab ONE ×2 (20:19→20:35)
[2019-02-04] MEDS ORDERED: Azithromycin 250 MG Tab ONE (20:35)
--- NOTE | 2019-02-04 23:08 | ER ---
HISTORY OF PRESENT ILLNESS: An 83-year-old female who comes in by ambulance with complaints of shortness of breath and shaking. She stated that this just happened this evening about 56 p.m. The patient was hypoxic at that time. The family members here state that she did go to the bathroom, and just that amount of walking made her symptomatic. She has been this way before, but it did not go away this time. When she went back to bed, the symptoms continued and they noticed that her oxygen level was low down as low as the low 80s or high 70s at home. They called the ambulance, and upon arrival at the ER her O2 sats had gone up to the low 90s with oxygen on at 2 L. Nursing staff has since increased it to 3 L. When I saw the patient, she states that she is feeling much better, she has warm blankets on. She states that she is no longer shaking and is not short of breath. She has been taking her medication as directed, and she does have oxygen that she uses at home all the time. Her family members tell me that she is good at using it. PAST MEDICAL HISTORY: CHF and COPD, mild dehydration and weakness, and colitis. OBJECTIVE: GENERAL APPEARANCE: The patient is awake and alert. She is in no respiratory distress at this time. VITAL SIGNS: Reviewed. Initial temp is 97.1, pulse is 106, blood pressure is 140/83, respiratory rate is 20, and O2 sat is 92% on 3 L. HEENT: Oral mucous membranes are slightly dry. Tonsils are not enlarged or injected. Pharynx not inflamed. NECK: Supple. LUNGS: Mostly clear on initial evaluation. There is a little bit of rhonchi in both bases at the endpoints of expiration. CARDIAC: Heart sounds distinct. No obvious murmurs noted. ABDOMEN: Soft and nontender. SKIN: Warm and dry. EXTREMITIES: There is no lower extremity edema noted. LAB AND X-RAY STUDIES: Chest x-ray is obtained showing what appears to be some atelectasis in the left lower lobe and a small amount of fluid in this area as well, slightly more significant than the patient's most recent chest x-ray, which is over a year old, which is read as atelectasis. LABORATORY DATA: Today include a CBC showing an elevated neutrophil count. White count is 10.9. Viral markers are low. Comprehensive metabolic panel shows a BUN of 29, creatinine of 1.0. BNP is 703, slightly elevated. At this point, I re-evaluated the patient. Second set of vitals reveals blood pressure has dropped down to 101/43, the other results are about the same, O2 sats remained at 92%. Lung exam reveals more pronounced rhonchi with a small amount of rales scattered throughout the lung mott at this time. The patient is not in any respiratory distress. She has an occasional cough. DIAGNOSIS: 1. Bronchitis. 2. Mild congestive heart failure. TREATMENT PLAN: I will start the patient on a Z-Geovanny. She will also be started on Lasix 20 mg a day to start this tomorrow morning, taking it once in the morning. She is to go home and rest and keep her oxygen on, and she is to be monitored closely at home. She is stable. I do want the patient to follow up next week with her primary care provider in the clinic for a recheck. Followup should be sooner as needed. PAVEL/DEEP /[id number]
--- NOTE | 2019-02-05 17:49 | CR ---
CLINICAL DATA: SOB. AP PORTABLE CHEST, 04 FEBRUARY 2019: Comparison made to a prior exam dated June 22, 2017. The heart size is stable. There is calcification of the aortic arch. The pulmonary vasculature is mildly prominent, suggesting mild pulmonary venous congestion. 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 The lungs are clear. No other significant findings. Job: [id number] MTDD
== END 2019-02-04 20:32 | disposition home or self-care (01) ==
LOC: LB.ED 18:44
DX: J40 Bronchitis, not specified as acute or chronic (principal); I50.9 Heart failure, unspecified; J44.9 Chronic obstructive pulmonary disease, unspecified
CPT/HCPCS: 36415; 71045; 80053; 83880; 85025; 99283; 99285; A0425; A0429; A9270

== ENCOUNTER → 2019-02-10 | Outpatient (CLI) | payer MEDICARE, OTHER | LOC: LB.CLINIC 14:44 | PROVIDERS: ATTEND Nurse Practitioner Family | DX: I50.9 Heart failure, unspecified (principal); R30.0 Dysuria | CPT/HCPCS: 36415; 80048; 81001; 83880 ==

== ENCOUNTER → 2019-02-18 | Outpatient (CLI) | payer MEDICARE, OTHER | LOC: LB.CLINIC 10:39 | PROVIDERS: ATTEND Nurse Practitioner Family | DX: I50.9 Heart failure, unspecified (principal) | CPT/HCPCS: 36415; 80048 ==

== ENCOUNTER 2020-04-07 16:02 | Inpatient (IN) | payer MEDICARE, OTHER ==
[2020-04-07] MEDS: Sodium Chloride 0.9% 1,000 ML IV SCH (18:02)
[2020-04-07] MEDS ORDERED: Albuterol/Ipratropium 3.0-0.5 MG/3 ML Neb Soln NEB ONE (19:00)
[2020-04-07] MEDS: Ondansetron 4 MG/2 ML SDV IVPUSH PRN (19:04)
[2020-04-07] MEDS: Albuterol/Ipratropium 3.0-0.5 MG/3 ML Neb Soln ONE ×2 (19:05→19:30)
[2020-04-07] MEDS ORDERED: Ondansetron 4 MG/2 ML SDV ONE (19:12)
[2020-04-08] MEDS: Sodium Chloride 0.9% 1,000 ML IV SCH ×3 (06:14→10:08)
[2020-04-08] MEDS ORDERED: Acetaminophen 650 MG Tab.ER PO SCH (08:41)
[2020-04-08] MEDS ORDERED: Levofloxacin/Dextrose 5%-Water 750 MG in Levofloxacin/Dextrose 5%-Water 150 ML IV SCH (08:45)
[2020-04-08] MEDS ORDERED: Sodium Chloride 0.9% 500 ML IV ONE (08:45)
[2020-04-08] MEDS ORDERED: Menthol/Zinc Oxide Ointment 113 GM Tube TOP PRN (08:46)
[2020-04-08] MEDS ORDERED: Loperamide 2 MG Cap PO ONE (08:48)
[2020-04-08] MEDS: Pantoprazole 40 MG Tab.CR PO SCH (09:16)
[2020-04-08] MEDS: Aspirin 81 MG Tab.Chew PO SCH (09:16)
[2020-04-08] MEDS: Acetaminophen 650 MG Tab.ER PO PRN ×2 (09:17→15:45)
[2020-04-08] MEDS ORDERED: Levofloxacin/Dextrose 5%-Water 150 ML IV ONE (09:53)
[2020-04-08] MEDS ORDERED: Sodium Chloride 0.9% 1,000 ML IV SCH (11:00)
--- NOTE | 2020-04-08 12:14 | HP ---
EMERGENCY ROOM NOTE AND ADMISSION HISTORY AND PHYSICAL: REASON FOR ADMISSION: Vomiting, diarrhea, and dehydration. HISTORY: This is an 85-year-old woman who was brought in by her with complaints of abdominal pain, nausea, vomiting, and diarrhea. She states that she does have a history of CHF and COPD and has had Clostridium difficile colitis in the past. She states that she was feeling reasonably good yesterday, and this morning, however, at around 11 o'clock this morning, she began to experience some mild nausea. She went ahead and ate lunch and afterwards vomited and vomited 3 or 4 times since then. She states that she had a lot of abdominal pain this afternoon with that has subsided somewhat. She had 2 semiformed stools, but shortly after arriving in the emergency room, she had voluminous diarrheal stool that was yellowish in color. Her diarrhea actually did not start until she arrived in the emergency room this evening. She denies any fever or chills. She does state that she has been coughing a bit more over the past 3 or 4 days, but she does have COPD and admits to chronic cough albeit to a lesser extent under normal circumstances. Her states that while she was sitting in a chair, she became pale and briefly appeared to be somewhat unresponsive, but it is questionable as to whether or not she actually had a syncopal episode or loss of consciousness. In 2017, she had Clostridium difficile colitis, which necessitated a fecal transplant at the [facility]. This evidently was successful. She has not had any problems since. She has not been on any antibiotics lately. No one else in the family and immediate family has been ill lately. PAST MEDICAL HISTORY: Significant for CHF and COPD and Clostridium difficile colitis. MEDICATIONS: Reviewed. Please see electronic medical record. They include: 1. Atenolol. 2. Spiriva inhaler. 3. Omeprazole. 4. Advair inhaler. 5. One baby aspirin per day. 6. Acetaminophen p.r.n. ALLERGIES: TO AMOXICILLIN, PENICILLIN, AND MOLDS AND DUST. REVIEW OF SYSTEMS: Pertinent positives and negatives as listed in the HPI. It should be noted that she is only able to ambulate with the use of either a walker or wheelchair at home. She is on home oxygen on a chronic basis. PHYSICAL EXAMINATION: GENERAL: She is alert and awake and does not appear to be in any acute distress. VITAL SIGNS: Her blood pressure is 106/54, O2 sats 93% on 4 L of O2 by mask. Heart rate is 97. She is afebrile. Respiratory rate is 24. HEENT: No scleral icterus is noted. Her oral mucosa is dry. NECK: Supple. There is no JVD. No bruits are heard. CHEST: Clear to auscultation with perhaps some diminished breath sounds at the bases, but no wheezes or rhonchi are noted. CARDIAC: Regular rate without murmur. ABDOMEN: Obese, mildly distended. It is soft and nontender, however, to deep palpation. There is no rebound or guarding. No hepatosplenomegaly is noted. No palpable masses. EXTREMITIES: She has no palpable pulses below the groins. However, her feet are reasonably pink and warm. There is no cyanosis. She has trace edema in both ankles. NEUROLOGIC EXAMINATION: No facial asymmetry. She moves all 4 extremities. Deep tendon reflexes and detailed neurologic exam were not performed. LABORATORY DATA: Her CBC is unremarkable. She has no leukocytosis or anemia. Her CMP shows that her sodium is 140 with a potassium of 5.6. Her CO2 is 20.6 with a chloride of 104. Her anion gap is elevated at 21. Her BUN is 24 with a creatinine of 1.35. Her estimated GFR is decreased from her previous level to 37; one year ago, it was 53. Her glucose is 186. Her bilirubin is normal, but she has borderline elevations in her AST and alkaline phosphatase. Urinalysis is unremarkable except her urine is concentrated with a specific gravity of greater than 1.030. Chest x-ray suggests possibly a mild infiltrate at the right lung base, otherwise it is unremarkable. We did go ahead and get a CT scan of her abdomen and this only showed a very small aortic aneurysm (3.5 cm), but no acute intraabdominal pathology was noted. This was done with oral contrast. COVID-19 rapid test was negative. IMPRESSION: Clinical picture of this is a gastroenteritis. We have to exclude the possibility of a Clostridium difficile colitis given her history and the lab is pending on that. We also obtained a stool culture. IMPRESSION: Gastroenteritis with dehydration, possible early pneumonia. PLAN: She will be admitted and rehydrated gingerly. I will hold off on any antibiotics at this point in time given the fact that a definite infiltrate was not demonstrated on her CT scan, even though all this chest x-ray suggests one may be developing. We will go ahead and repeat a chest x-ray in the morning and we will hydrate her and keep her n.p.o. overnight and observe her. All questions were answered and they agree with my plan. Her was present for part of this evaluation. ESTEBAN/DEEP
--- NOTE | 2020-04-08 13:12 | CT ---
Date of Service: 04/07/20 Clinical Data: abdominal pain ABDOMEN AND PELVIC CT: Multislice acquisition through the abdomen and pelvis without IV, but with oral contrast was performed. Comparison is made to a prior exam dated 04/19/16. There are mild emphysematous changes in both lower lungs. There are atelectasis changes within the right middle lobe and lingular segment of the left upper lobe and in both lung bases. The lung bases are otherwise clear. There is a large hiatal hernia. The heart size is normal. There are moderate coronary artery calcifications. There are calcifications in the region of the aortic and mitral valves. No pericardial effusion. The unenhanced liver appears normal. No focal hepatic lesions. The gallbladder is mildly distended. No calcified gallstones. No pericholecystic fluid. The spleen appears normal. The pancreas is atrophic, otherwise unremarkable. The right and left adrenals appear normal. 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 The right and left kidneys otherwise appear unremarkable. No nephrocalcinosis or nephrolithiasis. No hydronephrosis or hydroureter. There is Nails catheter within the bladder and the bladder is decompressed. There is gas and fluid throughout the colon with scattered air-fluid levels. There are also scattered air-fluid levels within the small bowel. No distended loops of small bowel. Enterocolitis should be considered. Followup imaging is recommended if clinically indicated. There is a 3.3 cm abdominal aortic aneurysm. It is unchanged from the prior exam. There are stenotic changes involving both iliac and femoral arteries. No free air. No free fluid. No adenopathy. There is a small fat-containing umbilical hernia. No other significant findings. [id number] [facility]
--- NOTE | 2020-04-08 13:16 | CR ---
Date of Service: 04/07/20 Clinical Data: abdominal pain AP CHEST: Comparison is made to a prior exam dated 02/04/19. The heart size is normal. The aorta is calcified and ectatic. There is eventration of the right hemidiaphragm. There is increased density in the right lung base consistent with basilar atelectasis or infiltrate. Pneumonia should be considered. The lungs are otherwise clear. No pneumothorax. No pleural effusions. [id number] [facility]
--- NOTE | 2020-04-08 13:20 | CR ---
Date of Service: 04/08/20 Clinical Data: Abdominal Pain AP CHEST: Comparison is made to a prior exam dated 04/07/20. There is persistent eventration of the right hemidiaphragm with increased density in the right lung base consistent with basilar atelectasis or infiltrate. The pulmonary vasculature does appear slightly more prominent than on the prior exam. Pulmonary venous congestion or fluid overload should be considered. The exam is otherwise unchanged from the prior. [id number] [facility]
[2020-04-08] MEDS ORDERED: Trolamine Salicylate/Aloe Vera 10% Crm 85 GM Tube TOP PRN (13:32)
[2020-04-08] MEDS ORDERED: Furosemide 20 MG/2 ML VIAL IVPUSH ONE (16:10)
--- NOTE | 2020-04-09 08:07 | PN ---
DATE OF VISIT: 04/08/2020 Overall, Kimberley remained reasonably stable throughout the night. There was some concern about low blood pressure running in the 80s and 90s, however, we rechecked her blood pressure on the right arm and her systolic blood pressures are considerably higher. She her urine output has been adequate, but albeit marginal. She has had some nausea, but that seems to be subsided as of this morning. She continues to have diarrhea and has had multiple watery stools throughout the night. Her urine output ran around 30 mL/h. She remains afebrile from a respiratory standpoint. Her oxygenation has been quite good, ranging from 94 to 98 with the respiratory rate ranging between 16 and 20. Her only complaint this morning is that she is thirsty and since her nausea has subsided considerably, we will go ahead and offer her clear liquids but continue her IV fluids for the time being because of the a losses associated with her diarrhea. In fact, I decided to give her an additional 500 mL of normal saline this morning based on my clinical impression that she is somewhat behind on fluids. She did state that she coughed a bit more and had more tenacious sputum overnight and although she is afebrile, on exam this morning, she does have some rhonchi in her right base. Repeat chest x-ray does show what appears to be the infiltrate mentioned last night. There could be some atelectasis here as well. Her labs show that her hyperkalemia is improved. Her sodium is normal. Her potassium is now 4.9 with a chloride of 109. Her CO2 has returned to normal and her anion gap is now normal. Her creatinine has gone from 1.35 to 1.29. Overall reasonably stable, probably still dehydrated based on thirst and diminished urine output. We will go ahead and give her some additional IV fluid judiciously in light of her history of congestive heart failure. We will restart her atenolol this morning and because of this concern of a possible right lower lobe pneumonia, I decided to go ahead and start her on levofloxacin 750 mg IV daily. IMPRESSION: Overall improved. Possible pneumonia at play along with her gastroenteritis. We will continue to monitor her urine output and try to keep up with fluid losses from the diarrhea. ESTEBAN/DEEP /[id number]
[2020-04-09] MEDS: Pantoprazole 40 MG Tab.CR PO SCH (08:20)
[2020-04-09] MEDS: Aspirin 81 MG Tab.Chew PO SCH (08:20)
[2020-04-09] MEDS: Acetaminophen 650 MG Tab.ER PO PRN ×2 (09:11→19:18)
--- NOTE | 2020-04-09 15:29 | PCM.PN ---
- General Info Date of Service: 04/09/20 Admission Dx/Problem (Free Text): pt admitted for weakness, dehydration, pneumonia Subjective Update: pt states she feels improved from admit, and even this morning. states weakness has improved and no nausea since admit. pt does state shortness of breath on exertion which although has improved, still remains. denies cough, diaphoresis, fever, chills, abdominal pain. Functional Status: Reports: Pain Controlled, Tolerating Diet, Ambulating - Review of Systems General: Reports: Weakness HEENT: Reports: No Symptoms Pulmonary: Reports: Shortness of Breath Cardiovascular: Reports: No Symptoms Gastrointestinal: Reports: No Symptoms Genitourinary: Reports: No Symptoms Skin: Reports: No Symptoms Neurological: Reports: No Symptoms - Patient Data Vitals - Most Recent: Last Vital Signs Temp 96.7 F L 04/09/20 14:00 Pulse 91 04/09/20 14:00 Resp 18 04/09/20 14:00 BP 110/50 L 04/09/20 14:00 Pulse Ox 91 L 04/09/20 14:00 Weight - Most Recent: 165 lb I&O - Last 24 Hours: Intake & Output 04/09/20 04/09/20 04/09/20 06:59 14:59 22:59 Intake Total 500 Output Total 900 Balance -400 Med Orders - Current: Current Medications Acetaminophen (Tylenol Arthritis Pain) 1,300 mg PO TID PRN PRN Reason: Pain Last Admin: 04/09/20 09:11 Dose: 1,300 mg Documented by: Albuterol (Proventil Neb Soln) 2.5 mg NEB Q4H PRN PRN Reason: short of breath Aspirin (Aspirin) 81 mg PO DAILY [facility] Last Admin: 04/09/20 08:20 Dose: 81 mg Documented by: Calamine/Phenol (Calmoseptine) 0 gm TOP QID PRN PRN Reason: Rash Last Admin: 04/08/20 10:12 Dose: 1 applic Documented by: Levofloxacin (Levaquin) 750 mg PO Q48H [facility] Ondansetron HCl (Zofran) 4 mg IVPUSH Q6H PRN PRN Reason: Nausea/Vomiting Last Admin: 04/07/20 19:04 Dose: 4 mg Documented by: Pantoprazole Sodium (Protonix) 40 mg PO ACBREAKFAST [facility] Last Admin: 04/09/20 08:20 Dose: 40 mg Documented by: Trolamine Salicylate (Aspercreme 10%) 0 gm TOP Q1H PRN PRN Reason: Other Last Admin: 04/08/20 14:13 Dose: 1 applic Documented by: Discontinued Medications Acetaminophen (Tylenol Arthritis Pain) 1,300 mg PO TID [facility] Last Admin: 04/08/20 18:58 Dose: Not Given Documented by: Albuterol/Ipratropium (Duoneb 3.0-0.5 Mg/3 Ml) Confirm Administered Dose 3 ml .ROUTE .STK-MED ONE Stop: 04/07/20 19:05 Last Admin: 04/07/20 19:30 Dose: Not Given Documented by: Albuterol/Ipratropium (Duoneb 3.0-0.5 Mg/3 Ml) 3 ml NEB Q2H ONE Stop: 04/07/20 19:01 Last Admin: 04/07/20 19:00 Dose: 3 ml Documented by: Furosemide (Lasix) 20 mg IVPUSH ONETIME ONE Stop: 04/08/20 16:11 Last Admin: 04/08/20 16:40 Dose: 20 mg Documented by: Sodium Chloride (Normal Saline) 1,000 mls @ 75 mls/hr IV ASDIRECTED [facility] Last Admin: 04/08/20 10:08 Dose: 100 mls/hr Documented by: Levofloxacin/Dextrose 750 mg/ (Levofloxacin/Dextrose) 300 mls @ 100 mls/hr IV Q24H [facility] Stop: 04/12/20 09:00 Last Admin: 04/08/20 10:10 Dose: 100 mls/hr Documented by: Sodium Chloride (Normal Saline) 500 mls @ 100 mls/hr IV .BOLUS ONE Stop: 04/08/20 13:44 Last Admin: 04/08/20 09:10 Dose: 500 mls/hr Documented by: Levofloxacin/Dextrose (Levaquin In D5w 750 Mg/150 Ml) Confirm Administered Dose 150 mls @ as directed IV .STK-MED ONE Stop: 04/08/20 09:54 Last Admin: 04/08/20 10:10 Dose: Not Given Documented by: Sodium Chloride (Normal Saline) 1,000 mls @ 75 mls/hr IV ASDIRECTED [facility] Last Admin: 04/08/20 11:40 Dose: 75 mls/hr Documented by: Levofloxacin/Dextrose 750 mg/ (Levofloxacin/Dextrose) 300 mls @ 100 mls/hr IV Q48H [facility] Stop: 04/12/20 09:00 Loperamide HCl (Imodium) 4 mg PO ONETIME ONE Stop: 04/08/20 08:49 Last Admin: 04/08/20 09:17 Dose: 4 mg Documented by: Ondansetron HCl (Zofran) Confirm Administered Dose 4 mg .ROUTE .STK-MED ONE Stop: 04/07/20 19:13 Last Admin: 04/07/20 19:05 Dose: Not Given Documented by: - Exam General: Alert, Oriented, Cooperative HEENT: Pupils Equal, Pupils Reactive, EOMI, Mucous Membr. Moist/[place] Lungs: Rales (bilateral lower, R>L), Wheezing (left upper) Cardiovascular: Regular Rate, Regular Rhythm, No Murmurs GI/Abdominal Exam: Normal Bowel Sounds, Soft, Non-Tender Extremities: Pedal Edema (+1bilateral) Peripheral Pulses: 2+: Radial (L), Radial (R), Posterior Tibial (L), Posterior Tibial (R), Dorsalis Pedis (L), Dorsalis Pedis (R) Skin: Warm, Dry, Intact Neurological: No New Focal Deficit Psy/Mental Status: Alert, Normal Affect, Normal Mood Sepsis Event Note - Evaluation Sepsis Screening Result: No Definite Risk - Focused Exam Vital Signs: Vital Signs Temp Pulse Resp BP BP Pulse Ox 04/09/20 14:00 96.7 F L 91 18 110/50 L 91 L 04/09/20 10:00 97.4 F 115 H 22 H 120/65 91 L 04/09/20 06:00 97 F 97 14 118/71 97 - Problem List & Annotations (1) Pneumonia SNOMED Code(s): 163100585 Code(s): J18.9 - PNEUMONIA, UNSPECIFIED ORGANISM Status: Acute Current Visit: Yes Qualifiers: Lung location: unspecified part of lung (2) Congestive heart failure SNOMED Code(s): 68057501 Code(s): I50.9 - HEART FAILURE, UNSPECIFIED Status: Acute Current Visit: No Onset Date: ~06/22/17 Annotation/Comment:: 06/22/17 - 1. Congestive heart failure, 2. Weakness, 3. Mild dehydration (3) Mild dehydration SNOMED Code(s): 3023397934936 Code(s): E86.0 - DEHYDRATION Status: Acute Current Visit: No Onset Date: ~06/22/17 Annotation/Comment:: 06/22/17 - 1. Congestive heart failure, 2. Weakness, 3. Mild dehydration (4) Weakness SNOMED Code(s): 91182786 Code(s): R53.1 - WEAKNESS Status: Acute Current Visit: No Onset Date: ~06/22/17 Annotation/Comment:: 06/22/17 - 1. Congestive heart failure, 2. Weakness, 3. Mild dehydration - Problem List Review Problem List Initiated/Reviewed/Updated: Yes - My Orders Last 24 Hours: My Active Orders 04/09/20 15:16 RT Aerosol Therapy [RC] ASDIRECTED 04/09/20 15:16 Albuterol [Proventil Neb Soln] 2.5 mg NEB Q4H PRN 04/09/20 Dinner Adult Diet [DIET] 04/10/20 05:11 B-TYPE NATRIURETIC PEPTIDE,BNP [CHEM] AM COMPREHENSIVE METABOLIC PN,CMP [CHEM] AM 04/10/20 09:00 levoFLOXacin [Levaquin] 750 mg PO Q48H - Plan Plan:: repeat labs in AM: CMP and BNP change ABX to PO tomorrow AM DC compliance monitor and Nails catheter albuterol nebs PRN incentive spirometry will reassess and likely DC home tomorrow if pt continues to improve.
[2020-04-10] MEDS: Aspirin 81 MG Tab.Chew PO SCH (07:43)
[2020-04-10] MEDS: Pantoprazole 40 MG Tab.CR PO SCH (07:43)
[2020-04-10] MEDS: Levofloxacin 750 MG Tab PO SCH (08:55)
[2020-04-10] MEDS ORDERED: Levofloxacin/Dextrose 5%-Water 750 MG in Levofloxacin/Dextrose 5%-Water 150 ML IV SCH (09:00)
--- NOTE | 2020-04-10 10:57 | PCM.DCSUM1 ---
Discharge Summary - Hospital Course Free Text/Narrative:: pt admitted with weakness and found to have pneumonia on obs day 1. continued weakness on obs day 2 and improved greatly since regarding activity tolerance, SOB, and general energy. incentive spirometry and PO med change on Obs day 2 which pt has tolerated well. no further nausea, vomiting, diarrhea since. - Discharge Data Discharge Date: 04/10/20 Discharge Disposition: Home, Self-Care 01 Condition: Good - Referral to Home Health Primary Care Physician: PCP None - Discharge Diagnosis/Problem(s) (1) Pneumonia SNOMED Code(s): 093883321 ICD Code: J18.9 - PNEUMONIA, UNSPECIFIED ORGANISM Status: Acute Current Visit: Yes Qualifiers: Pneumonia type: due to unspecified organism Laterality: right Lung location: lower lobe of lung Qualified Code(s): J18.9 - Pneumonia, unspecified organism (2) Congestive heart failure SNOMED Code(s): 33037809 ICD Code: I50.9 - HEART FAILURE, UNSPECIFIED Status: Acute Current Visit: No Onset Date: ~06/22/17 Problem Details: 06/22/17 - 1. Congestive heart failure, 2. Weakness, 3. Mild dehydration Qualifiers: Heart failure type: systolic Heart failure chronicity: chronic Qualified Code(s): I50.22 - Chronic systolic (congestive) heart failure (3) Mild dehydration SNOMED Code(s): 1157028065902 ICD Code: E86.0 - DEHYDRATION Status: Acute Current Visit: Yes Onset Date: ~06/22/17 Problem Details: 06/22/17 - 1. Congestive heart failure, 2. Weakness, 3. Mild dehydration (4) Weakness SNOMED Code(s): 08884228 ICD Code: R53.1 - WEAKNESS Status: Acute Current Visit: Yes Onset Date: ~06/22/17 Problem Details: 06/22/17 - 1. Congestive heart failure, 2. Weakness, 3. Mild dehydration - Discharge Plan *PRESCRIPTION DRUG MONITORING PROGRAM REVIEWED*: Not Applicable *COPY OF PRESCRIPTION DRUG MONITORING REPORT IN PATIENT QUINTON: No Prescriptions/Med Rec: Fluticasone/Salmeterol [Advair 100-50] 1 puff IH BID 30 Days #1 diskus levoFLOXacin [Levaquin] 750 mg PO Q48H #3 tablet Home Medications: Home Meds Acetaminophen [Tylenol Arthritis] 2 tab PO TID 04/19/16 [History] Aspirin [Kylie Chewable Aspirin] 81 mg PO DAILY 04/19/16 [History] atenoloL [Tenormin] 25 mg PO DAILY 04/19/16 [History] Omeprazole 20 mg PO DAILY 12/15/18 [History] atorvaSTATin [Lipitor] 10 mg PO BEDTIME 04/08/20 [History] Fluticasone/Salmeterol [Advair 100-50] 1 puff IH BID 30 Days #1 diskus 04/10/20 [Rx] Furosemide [Lasix] 20 mg PO DAILY #30 tab 04/10/20 [Rx] Tiotropium [Spiriva HandiHaler] 18 mcg INH DAILY #30 cap 04/10/20 [Rx] levoFLOXacin [Levaquin] 750 mg PO Q48H #3 tablet 04/10/20 [Rx] Oxygen Therapy Mode: Nasal Cannula Oxygen Flow Rate (L/min): 2 Patient Handouts: Levofloxacin tablets - Discharge Summary/Plan Comment DC Time >30 min.: Yes Discharge Summary/Plan Comment: pt admitted to OBS and found to have PNA of RLL coinciding with CHF exacerbation. weakness and activity tolerance improved. will discharge home on levaquin x3 doses with dosing every 48hr as she was started on this due to reduced Creat clearance. will also start on diuretics daily as her chf is likely causing reduced activity tolerance and fluid off loading will likely help this. discharge home and follow up in clinic in 1-2 weeks for recheck and return to home health. refill of inhaler prescriptions as requested as pt is currently out. - General Info Date of Service: 04/10/20 Admission Dx/Problem (Free Text: pt admitted for weakness, dehydration, pneumonia Subjective Update: pt states she feels improved from admit, and even this morning. states weakness has improved and no nausea since admit. pt does state shortness of breath on exertion which has improved. CHF exacerbation by history and BNP today. denies diaphoresis, fever, chills, abdominal pain, nausea, vomiting. - Review of Systems General: Reports: No Symptoms HEENT: Reports: No Symptoms Pulmonary: Reports: No Symptoms Cardiovascular: Reports: No Symptoms Gastrointestinal: Reports: No Symptoms Musculoskeletal: Reports: No Symptoms Skin: Reports: No Symptoms Neurological: Reports: No Symptoms Psychiatric: Reports: No Symptoms - Patient Data Vitals - Most Recent: Last Vital Signs Temp 97.6 F 04/10/20 08:00 Pulse 91 04/10/20 08:00 Resp 20 04/10/20 08:00 BP 149/77 H 04/10/20 08:00 Pulse Ox 94 L 04/10/20 08:00 Weight - Most Recent: 175 lb 6.4 oz I&O - Last 24 hours: Intake & Output 04/09/20 04/10/20 04/10/20 22:59 06:59 14:59 Intake Total 2000 500 Output Total 600 650 Balance 1400 -150 Lab Results - Last 24 hrs: Laboratory Results - last 24 hr 04/10/20 Range/Units 08:00 Sodium 141 (136-145) mmol/L Potassium 4.7 (3.5-5.1) mmol/L Chloride 106 (98-107) mmol/L Carbon Dioxide 27.8 (21.0-32.0) mmol/L Anion Gap 11.9 (5.0-15.0) mmol/L BUN 18 D (8-26) mg/dL Creatinine 0.98 D (0.55-1.02) mg/dL Est Cr Clr Drug Dosing 31.99 mL/min Estimated GFR (MDRD) 54 L (>60) MLS/MIN BUN/Creatinine Ratio 18.4 (6-25) Glucose 82 (74-100) mg/dL Calcium 8.6 (8.5-10.1) mg/dL Total Bilirubin 0.2 (0.0-1.0) mg/dL AST 28 (15-37) U/L ALT 24 (12-78) U/L Alkaline Phosphatase 80 (46-116) U/L B-Natriuretic Peptide 59797 H D (0-450) pg/mL Total Protein 6.3 L (6.4-8.2) g/dL Albumin 2.7 L (3.4-5.0) g/dL Globulin 3.6 (2.2-4.2) g/dL Albumin/Globulin Ratio 0.8 (0.8-2.0) Med Orders - Current: Current Medications Acetaminophen (Tylenol Arthritis Pain) 1,300 mg PO TID PRN PRN Reason: Pain Last Admin: 04/09/20 19:18 Dose: 1,300 mg Documented by: Albuterol (Proventil Neb Soln) 2.5 mg NEB Q4H PRN PRN Reason: short of breath Aspirin (Aspirin) 81 mg PO DAILY [facility] Last Admin: 04/10/20 07:43 Dose: 81 mg Documented by: Calamine/Phenol (Calmoseptine) 0 gm TOP QID PRN PRN Reason: Rash Last Admin: 04/08/20 10:12 Dose: 1 applic Documented by: Levofloxacin (Levaquin) 750 mg PO Q48H [facility] Last Admin: 04/10/20 08:55 Dose: 750 mg Documented by: Ondansetron HCl (Zofran) 4 mg IVPUSH Q6H PRN PRN Reason: Nausea/Vomiting Last Admin: 04/07/20 19:04 Dose: 4 mg Documented by: Pantoprazole Sodium (Protonix) 40 mg PO ACBREAKFAST [facility] Last Admin: 04/10/20 07:43 Dose: 40 mg Documented by: Trolamine Salicylate (Aspercreme 10%) 0 gm TOP Q1H PRN PRN Reason: Other Last Admin: 04/08/20 14:13 Dose: 1 applic Documented by: Discontinued Medications Acetaminophen (Tylenol Arthritis Pain) 1,300 mg PO TID [facility] Last Admin: 04/08/20 18:58 Dose: Not Given Documented by: Albuterol/Ipratropium (Duoneb 3.0-0.5 Mg/3 Ml) Confirm Administered Dose 3 ml .ROUTE .STK-MED ONE Stop: 04/07/20 19:05 Last Admin: 04/07/20 19:30 Dose: Not Given Documented by: Albuterol/Ipratropium (Duoneb 3.0-0.5 Mg/3 Ml) 3 ml NEB Q2H ONE Stop: 04/07/20 19:01 Last Admin: 04/07/20 19:00 Dose: 3 ml Documented by: Furosemide (Lasix) 20 mg IVPUSH ONETIME ONE Stop: 04/08/20 16:11 Last Admin: 04/08/20 16:40 Dose: 20 mg Documented by: Sodium Chloride (Normal Saline) 1,000 mls @ 75 mls/hr IV ASDIRECTED [facility] Last Admin: 04/08/20 10:08 Dose: 100 mls/hr Documented by: Levofloxacin/Dextrose 750 mg/ (Levofloxacin/Dextrose) 300 mls @ 100 mls/hr IV Q24H [facility] Stop: 04/12/20 09:00 Last Admin: 04/08/20 10:10 Dose: 100 mls/hr Documented by: Sodium Chloride (Normal Saline) 500 mls @ 100 mls/hr IV .BOLUS ONE Stop: 04/08/20 13:44 Last Admin: 04/08/20 09:10 Dose: 500 mls/hr Documented by: Levofloxacin/Dextrose (Levaquin In D5w 750 Mg/150 Ml) Confirm Administered Dose 150 mls @ as directed IV .STK-MED ONE Stop: 04/08/20 09:54 Last Admin: 04/08/20 10:10 Dose: Not Given Documented by: Sodium Chloride (Normal Saline) 1,000 mls @ 75 mls/hr IV ASDIRECTED [facility] Last Admin: 04/08/20 11:40 Dose: 75 mls/hr Documented by: Levofloxacin/Dextrose 750 mg/ (Levofloxacin/Dextrose) 300 mls @ 100 mls/hr IV Q48H [facility] Stop: 04/12/20 09:00 Loperamide HCl (Imodium) 4 mg PO ONETIME ONE Stop: 04/08/20 08:49 Last Admin: 04/08/20 09:17 Dose: 4 mg Documented by: Ondansetron HCl (Zofran) Confirm Administered Dose 4 mg .ROUTE .STK-MED ONE Stop: 04/07/20 19:13 Last Admin: 04/07/20 19:05 Dose: Not Given Documented by: - Exam Quality Assessment: Reports: Supplemental Oxygen General: Reports: Alert, Oriented, Cooperative, No Acute Distress HEENT: Reports: Pupils Equal, Pupils Reactive, EOMI, Mucous Membr. Moist/[place] Lungs: Reports: Crackles (bilateral lower lobes R>L), Wheezing (upper lobes bilat L>R) Cardiovascular: Reports: Regular Rate, Regular Rhythm, No Murmurs GI/Abdominal Exam: Soft, Non-Tender Extremities: Normal Inspection, Normal Range of Motion, Non-Tender, Normal Capillary Refill, Pedal Edema (+1) Skin: Reports: Warm, Dry, Intact Neurological: Reports: No New Focal Deficit Psy/Mental Status: Reports: Alert, Normal Affect, Normal Mood
[2020-04-10] MEDS: Albuterol 0.083% 2.5 MG/3 ML Neb Soln NEB PRN ×2 (11:21→16:54)
[2020-04-10] MEDS: Acetaminophen 650 MG Tab.ER PO PRN ×2 (11:34→19:21)
[2020-04-10] MEDS ORDERED: Furosemide 20 MG Tab PO ONE (12:23)
[2020-04-10] MEDS ORDERED: Furosemide 40 MG/4 ML VIAL IVPUSH ONE (16:20)
[2020-04-10] MEDS ORDERED: Sodium Chloride 0.9% 10 ML Syringe FLUSH PRN (16:20)
--- NOTE | 2020-04-10 16:33 | PCM.PN ---
- General Info Date of Service: 04/10/20 Admission Dx/Problem (Free Text): pt admitted for weakness, dehydration, pneumonia, CHF exacerbation Subjective Update: pt states she feels improved from admit, and even this morning. states weakness has improved and no nausea since admit. pt does state shortness of breath on exertion which has improved. CHF exacerbation by history and BNP today. denies diaphoresis, fever, chills, abdominal pain, nausea, vomiting. pt was discharged home and during transport became increasingly short of breath and confused with increasing dusky color with history provided by and EMS. EMS states they arrived shortly after pt returned home and placed her on O2 and returned her to hospital. pt does not remember arriving home but does state EMS oxygen has helped markedly. - Review of Systems Pulmonary: Reports: Shortness of Breath, Wheezing Cardiovascular: Reports: Dyspnea on Exertion, Orthopnea, Edema (bilateral lower extremity.) Gastrointestinal: Reports: No Symptoms Genitourinary: Reports: No Symptoms Musculoskeletal: Reports: No Symptoms Skin: Reports: Cyanosis Neurological: Reports: Confusion - Patient Data Vitals - Most Recent: Last Vital Signs Temp 97.4 F 04/10/20 16:00 Pulse 101 H 04/10/20 16:00 Resp 87 H 04/10/20 16:00 BP 116/58 L 04/10/20 16:00 Pulse Ox 5 L 04/10/20 16:00 Weight - Most Recent: 175 lb 6.4 oz I&O - Last 24 Hours: Intake & Output 04/10/20 04/10/20 04/10/20 06:59 14:59 22:59 Intake Total 500 Output Total 650 Balance -150 Lab Results Last 24 Hours: Laboratory Results - last 24 hr 04/10/20 Range/Units 08:00 Sodium 141 (136-145) mmol/L Potassium 4.7 (3.5-5.1) mmol/L Chloride 106 (98-107) mmol/L Carbon Dioxide 27.8 (21.0-32.0) mmol/L Anion Gap 11.9 (5.0-15.0) mmol/L BUN 18 D (8-26) mg/dL Creatinine 0.98 D (0.55-1.02) mg/dL Est Cr Clr Drug Dosing 31.99 mL/min Estimated GFR (MDRD) 54 L (>60) MLS/MIN BUN/Creatinine Ratio 18.4 (6-25) Glucose 82 (74-100) mg/dL Calcium 8.6 (8.5-10.1) mg/dL Total Bilirubin 0.2 (0.0-1.0) mg/dL AST 28 (15-37) U/L ALT 24 (12-78) U/L Alkaline Phosphatase 80 (46-116) U/L B-Natriuretic Peptide 47514 H D (0-450) pg/mL Total Protein 6.3 L (6.4-8.2) g/dL Albumin 2.7 L (3.4-5.0) g/dL Globulin 3.6 (2.2-4.2) g/dL Albumin/Globulin Ratio 0.8 (0.8-2.0) Med Orders - Current: Current Medications Acetaminophen (Tylenol Arthritis Pain) 1,300 mg PO TID PRN PRN Reason: Pain Last Admin: 04/10/20 11:34 Dose: 1,300 mg Documented by: Albuterol (Proventil Neb Soln) 2.5 mg NEB Q4H PRN PRN Reason: short of breath Last Admin: 04/10/20 11:21 Dose: 2.5 mg Documented by: Aspirin (Aspirin) 81 mg PO DAILY [facility] Last Admin: 04/10/20 07:43 Dose: 81 mg Documented by: Calamine/Phenol (Calmoseptine) 0 gm TOP QID PRN PRN Reason: Rash Last Admin: 04/08/20 10:12 Dose: 1 applic Documented by: Levofloxacin (Levaquin) 750 mg PO Q48H [facility] Last Admin: 04/10/20 08:55 Dose: 750 mg Documented by: Ondansetron HCl (Zofran) 4 mg IVPUSH Q6H PRN PRN Reason: Nausea/Vomiting Last Admin: 04/07/20 19:04 Dose: 4 mg Documented by: Pantoprazole Sodium (Protonix) 40 mg PO ACBREAKFAST [facility] Last Admin: 04/10/20 07:43 Dose: 40 mg Documented by: Sodium Chloride (Saline Flush) 10 ml FLUSH ASDIRECTED PRN PRN Reason: Keep Vein Open Tiotropium [place] (Spiriva Handihaler) 18 mcg INH DAILY [facility] Trolamine Salicylate (Aspercreme 10%) 0 gm TOP Q1H PRN PRN Reason: Other Last Admin: 04/08/20 14:13 Dose: 1 applic Documented by: Discontinued Medications Acetaminophen (Tylenol Arthritis Pain) 1,300 mg PO TID [facility] Last Admin: 04/08/20 18:58 Dose: Not Given Documented by: Albuterol/Ipratropium (Duoneb 3.0-0.5 Mg/3 Ml) Confirm Administered Dose 3 ml .ROUTE .STK-MED ONE Stop: 04/07/20 19:05 Last Admin: 04/07/20 19:30 Dose: Not Given Documented by: Albuterol/Ipratropium (Duoneb 3.0-0.5 Mg/3 Ml) 3 ml NEB Q2H [facility] Stop: 04/07/20 19:01 Last Admin: 04/07/20 19:00 Dose: 3 ml Documented by: Furosemide (Lasix) 20 mg IVPUSH ONETIME ONE Stop: 04/08/20 16:11 Last Admin: 04/08/20 16:40 Dose: 20 mg Documented by: Furosemide (Lasix) 20 mg PO ONETIME ONE Stop: 04/10/20 12:24 Last Admin: 04/10/20 13:40 Dose: 20 mg Documented by: Furosemide (Lasix) 40 mg IVPUSH NOW ONE Stop: 04/10/20 16:21 Sodium Chloride (Normal Saline) 1,000 mls @ 75 mls/hr IV ASDIRECTED [facility] Last Admin: 04/08/20 10:08 Dose: 100 mls/hr Documented by: Levofloxacin/Dextrose 750 mg/ (Levofloxacin/Dextrose) 300 mls @ 100 mls/hr IV Q24H [facility] Stop: 04/12/20 09:00 Last Admin: 04/08/20 10:10 Dose: 100 mls/hr Documented by: Sodium Chloride (Normal Saline) 500 mls @ 100 mls/hr IV .BOLUS ONE Stop: 04/08/20 13:44 Last Admin: 04/08/20 09:10 Dose: 500 mls/hr Documented by: Levofloxacin/Dextrose (Levaquin In D5w 750 Mg/150 Ml) Confirm Administered Dose 150 mls @ as directed IV .STK-MED ONE Stop: 04/08/20 09:54 Last Admin: 04/08/20 10:10 Dose: Not Given Documented by: Sodium Chloride (Normal Saline) 1,000 mls @ 75 mls/hr IV ASDIRECTED [facility] Last Admin: 04/08/20 11:40 Dose: 75 mls/hr Documented by: Levofloxacin/Dextrose 750 mg/ (Levofloxacin/Dextrose) 300 mls @ 100 mls/hr IV Q48H [facility] Stop: 04/12/20 09:00 Loperamide HCl (Imodium) 4 mg PO ONETIME ONE Stop: 04/08/20 08:49 Last Admin: 04/08/20 09:17 Dose: 4 mg Documented by: Ondansetron HCl (Zofran) Confirm Administered Dose 4 mg .ROUTE .STK-MED ONE Stop: 04/07/20 19:13 Last Admin: 04/07/20 19:05 Dose: Not Given Documented by: - Exam Quality Assessment: Supplemental Oxygen General: Alert, Oriented, Cooperative, Mild Distress HEENT: Pupils Equal, Pupils Reactive, EOMI, Mucous Membr. Moist/[place] Lungs: Decreased Breath Sounds, Crackles, Rhonchi Cardiovascular: Tachycardia Extremities: Pedal Edema (+1-2) Peripheral Pulses: 2+: Radial (L), Radial (R), Posterior Tibial (L), Posterior Tibial (R) Skin: Warm, Dry, Intact Neurological: No New Focal Deficit Psy/Mental Status: Alert, Normal Affect Sepsis Event Note - Evaluation Sepsis Screening Result: No Definite Risk - Focused Exam Vital Signs: Vital Signs Temp Pulse Resp BP Pulse Ox 04/10/20 16:00 97.4 F 101 H 87 H 116/58 L 5 L 04/10/20 12:00 97.5 F 101 H 20 120/55 L 92 L 04/10/20 08:00 97.6 F 91 20 149/77 H 94 L - Problem List & Annotations (1) Pneumonia SNOMED Code(s): 807170377 Code(s): J18.9 - PNEUMONIA, UNSPECIFIED ORGANISM Status: Acute Current Visit: Yes Qualifiers: Pneumonia type: due to unspecified organism Laterality: right Lung location: lower lobe of lung Qualified Code(s): J18.9 - Pneumonia, unspecified organism (2) Congestive heart failure SNOMED Code(s): 44721885 Code(s): I50.9 - HEART FAILURE, UNSPECIFIED Status: Acute Current Visit: No Onset Date: ~03/19/18 Qualifiers: Heart failure type: systolic Heart failure chronicity: acute on chronic Qualified Code(s): I50.23 - Acute on chronic systolic (congestive) heart failure Annotation/Comment:: 06/22/17 - 1. Congestive heart failure, 2. Weakness, 3. Mild dehydration (3) Mild dehydration SNOMED Code(s): 2397544975327 Code(s): E86.0 - DEHYDRATION Status: Acute Current Visit: Yes Onset Date: ~06/22/17 Annotation/Comment:: 06/22/17 - 1. Congestive heart failure, 2. Weakness, 3. Mild dehydration (4) Weakness SNOMED Code(s): 31240639 Code(s): R53.1 - WEAKNESS Status: Acute Current Visit: Yes Onset Date: ~06/22/17 Annotation/Comment:: 06/22/17 - 1. Congestive heart failure, 2. Weakness, 3. Mild dehydration (5) Acute respiratory failure with hypoxia SNOMED Code(s): 87734271, 416813250 Code(s): J96.01 - ACUTE RESPIRATORY FAILURE WITH HYPOXIA Status: Acute Current Visit: Yes - Problem List Review Problem List Initiated/Reviewed/Updated: Yes - My Orders Last 24 Hours: My Active Orders 04/09/20 Dinner Adult Diet [DIET] 04/10/20 09:00 levoFLOXacin [Levaquin] 750 mg PO Q48H 04/10/20 16:20 Sodium Chloride 0.9% [Saline Flush] 10 ml FLUSH ASDIRECTED PRN Peripheral IV Insertion Adult [OM.PC] Routine 04/10/20 16:24 RT Post Treatment Assessment [RC] Click to Edit 04/10/20 16:30 Tiotropium [Spiriva HandiHaler] 18 mcg INH DAILY Code: DNR/DNI lasix BID PT/OT eval tomorrow. - Plan Plan:: repeat labs in AM: CMP and BNP continue levaquin PO monitor closely with bipap on standby in case of return of respiratory failure. pt at baseline shortly after returning to room with EMS and hospital O2. albuterol nebs PRN incentive spirometry will continue diuresis 1-2 days and daily weights. eval for home care with PT and OT and home respiratory equipment including home and transport O2 should be assessed as I believe this to be the main protagonist for this episode of respiratory failure
[2020-04-10] MEDS: Tiotropium Inhaler 18 MCG Inhalation Powder Cap Kit of 5 INH SCH (17:53)
[2020-04-11] MEDS: Aspirin 81 MG Tab.Chew PO SCH (07:34)
[2020-04-11] MEDS: Pantoprazole 40 MG Tab.CR PO SCH (07:34)
[2020-04-11] MEDS: Tiotropium Inhaler 18 MCG Inhalation Powder Cap Kit of 5 INH SCH (07:34)
[2020-04-11] MEDS ORDERED: Furosemide 20 MG/2 ML VIAL IVPUSH SCH (08:00)
[2020-04-11] MEDS: Albuterol 0.083% 2.5 MG/3 ML Neb Soln NEB PRN (08:48)
[2020-04-11] MEDS ORDERED: Meclizine 12.5 MG Tab PO ONE (09:45)
--- NOTE | 2020-04-11 10:19 | PCM.PN ---
- General Info Date of Service: 04/11/20 Admission Dx/Problem (Free Text): pt admitted for weakness, dehydration, pneumonia, CHF exacerbation Subjective Update: patient reports that her breathing is getting better, but still get SOB on exertion. Still requiring 4-5 Lit by NC to maintain O2 Sat >94% Reports some dizziness for a week or so that it worse with turning her face - h/o vertigo. No CP, fever or chills. - Review of Systems General: Reports: Fatigue HEENT: Reports: No Symptoms Pulmonary: Reports: Shortness of Breath Cardiovascular: Reports: Dyspnea on Exertion, Orthopnea, Edema, Lightheadedness Gastrointestinal: Reports: No Symptoms Genitourinary: Reports: No Symptoms Neurological: Reports: No Symptoms Psychiatric: Reports: No Symptoms - Patient Data Vitals - Most Recent: Last Vital Signs Temp 36.9 C 04/11/20 08:00 Pulse 111 H 04/11/20 08:00 Resp 22 H 04/11/20 08:00 BP 136/66 04/11/20 08:00 Pulse Ox 94 L 04/11/20 08:00 Weight - Most Recent: 78.188 kg I&O - Last 24 Hours: Intake & Output 04/10/20 04/11/20 04/11/20 22:59 06:59 14:59 Intake Total 920 400 Output Total 550 2075 Balance 370 -1675 Lab Results Last 24 Hours: Laboratory Results - last 24 hr 04/11/20 Range/Units 08:00 Sodium 138 (136-145) mmol/L Potassium 4.5 (3.5-5.1) mmol/L Chloride 100 (98-107) mmol/L Carbon Dioxide 28.5 (21.0-32.0) mmol/L Anion Gap 14.0 (5.0-15.0) mmol/L BUN 19 (8-26) mg/dL Creatinine 1.26 H D (0.55-1.02) mg/dL Est Cr Clr Drug Dosing 24.88 mL/min Estimated GFR (MDRD) 40 L (>60) MLS/MIN BUN/Creatinine Ratio 15.1 (6-25) Glucose 86 (74-100) mg/dL Calcium 8.5 (8.5-10.1) mg/dL Total Bilirubin 0.2 (0.0-1.0) mg/dL AST 33 (15-37) U/L ALT 25 (12-78) U/L Alkaline Phosphatase 102 (46-116) U/L B-Natriuretic Peptide 24286 H D (0-450) pg/mL Total Protein 6.7 (6.4-8.2) g/dL Albumin 2.9 L (3.4-5.0) g/dL Globulin 3.8 (2.2-4.2) g/dL Albumin/Globulin Ratio 0.8 (0.8-2.0) Med Orders - Current: Current Medications Acetaminophen (Tylenol Arthritis Pain) 1,300 mg PO TID PRN PRN Reason: Pain Last Admin: 04/10/20 19:21 Dose: 1,300 mg Documented by: Albuterol (Proventil Neb Soln) 2.5 mg NEB Q4H PRN PRN Reason: short of breath Last Admin: 04/11/20 08:48 Dose: 2.5 mg Documented by: Aspirin (Aspirin) 81 mg PO DAILY [facility] Last Admin: 04/11/20 07:34 Dose: 81 mg Documented by: Calamine/Phenol (Calmoseptine) 0 gm TOP QID PRN PRN Reason: Rash Last Admin: 04/08/20 10:12 Dose: 1 applic Documented by: Furosemide (Lasix) 20 mg IVPUSH BIDDIURETIC [facility] Last Admin: 04/11/20 07:43 Dose: 20 mg Documented by: Levofloxacin (Levaquin) 750 mg PO Q48H [facility] Last Admin: 04/10/20 08:55 Dose: 750 mg Documented by: Ondansetron HCl (Zofran) 4 mg IVPUSH Q6H PRN PRN Reason: Nausea/Vomiting Last Admin: 04/07/20 19:04 Dose: 4 mg Documented by: Pantoprazole Sodium (Protonix) 40 mg PO ACBREAKFAST [facility] Last Admin: 04/11/20 07:34 Dose: 40 mg Documented by: Sodium Chloride (Saline Flush) 10 ml FLUSH ASDIRECTED PRN PRN Reason: Keep Vein Open Tiotropium [place] (Spiriva Handihaler) 18 mcg INH DAILY [facility] Last Admin: 04/11/20 07:34 Dose: 1 puff Documented by: Trolamine Salicylate (Aspercreme 10%) 0 gm TOP Q1H PRN PRN Reason: Other Last Admin: 04/08/20 14:13 Dose: 1 applic Documented by: Discontinued Medications Acetaminophen (Tylenol Arthritis Pain) 1,300 mg PO TID [facility] Last Admin: 04/08/20 18:58 Dose: Not Given Documented by: Albuterol/Ipratropium (Duoneb 3.0-0.5 Mg/3 Ml) Confirm Administered Dose 3 ml .ROUTE .STK-MED ONE Stop: 04/07/20 19:05 Last Admin: 04/07/20 19:30 Dose: Not Given Documented by: Albuterol/Ipratropium (Duoneb 3.0-0.5 Mg/3 Ml) 3 ml NEB Q2H ONE Stop: 04/07/20 19:01 Last Admin: 04/07/20 19:00 Dose: 3 ml Documented by: Furosemide (Lasix) 20 mg IVPUSH ONETIME ONE Stop: 04/08/20 16:11 Last Admin: 04/08/20 16:40 Dose: 20 mg Documented by: Furosemide (Lasix) 20 mg PO ONETIME ONE Stop: 04/10/20 12:24 Last Admin: 04/10/20 13:40 Dose: 20 mg Documented by: Furosemide (Lasix) 40 mg IVPUSH NOW ONE Stop: 04/10/20 16:21 Last Admin: 04/10/20 16:31 Dose: 40 mg Documented by: Sodium Chloride (Normal Saline) 1,000 mls @ 75 mls/hr IV ASDIRECTED [facility] Last Admin: 04/08/20 10:08 Dose: 100 mls/hr Documented by: Levofloxacin/Dextrose 750 mg/ (Levofloxacin/Dextrose) 300 mls @ 100 mls/hr IV Q24H [facility] Stop: 04/12/20 09:00 Last Admin: 04/08/20 10:10 Dose: 100 mls/hr Documented by: Sodium Chloride (Normal Saline) 500 mls @ 100 mls/hr IV .BOLUS ONE Stop: 04/08/20 13:44 Last Admin: 04/08/20 09:10 Dose: 500 mls/hr Documented by: Levofloxacin/Dextrose (Levaquin In D5w 750 Mg/150 Ml) Confirm Administered Dose 150 mls @ as directed IV .STK-MED ONE Stop: 04/08/20 09:54 Last Admin: 04/08/20 10:10 Dose: Not Given Documented by: Sodium Chloride (Normal Saline) 1,000 mls @ 75 mls/hr IV ASDIRECTED [facility] Last Admin: 04/08/20 11:40 Dose: 75 mls/hr Documented by: Levofloxacin/Dextrose 750 mg/ (Levofloxacin/Dextrose) 300 mls @ 100 mls/hr IV Q48H [facility] Stop: 04/12/20 09:00 Loperamide HCl (Imodium) 4 mg PO ONETIME ONE Stop: 04/08/20 08:49 Last Admin: 04/08/20 09:17 Dose: 4 mg Documented by: Ondansetron HCl (Zofran) Confirm Administered Dose 4 mg .ROUTE .STK-MED ONE Stop: 04/07/20 19:13 Last Admin: 04/07/20 19:05 Dose: Not Given Documented by: - Exam Quality Assessment: Supplemental Oxygen General: Alert, Oriented, Cooperative, No Acute Distress HEENT: Pupils Equal Lungs: Crackles (fine crackles b/l basal) Cardiovascular: Regular Rate, Tachycardia GI/Abdominal Exam: Normal Bowel Sounds, Soft, Non-Tender Extremities: Pedal Edema Neurological: No New Focal Deficit Psy/Mental Status: Alert, Normal Affect #1 Interpretation EKG Date: 04/11/20 Rhythm: NSR Rate (Beats/Min): 125 [place]: Normal P-Wave: Present QRS: RBBB ST-T: Normal QT: Normal Sepsis Event Note - Evaluation Sepsis Screening Result: Sepsis Risk - Focused Exam Vital Signs: Vital Signs Temp Pulse Resp BP Pulse Ox 04/11/20 08:00 36.9 C 111 H 22 H 136/66 94 L 04/11/20 04:00 36.6 C 125 H 22 H 91/45 L 93 L 04/11/20 00:00 36.1 C 120 H 18 94/47 L 95 - Problem List & Annotations (1) Tachycardia SNOMED Code(s): 9949347 Code(s): R00.0 - TACHYCARDIA, UNSPECIFIED Status: Acute Priority: Medium Current Visit: Yes (2) Acute respiratory failure with hypoxia SNOMED Code(s): 75447223, 217988964 Code(s): J96.01 - ACUTE RESPIRATORY FAILURE WITH HYPOXIA Status: Acute Priority: High Current Visit: Yes (3) Pneumonia SNOMED Code(s): 231976341 Code(s): J18.9 - PNEUMONIA, UNSPECIFIED ORGANISM Status: Acute Priority: High Current Visit: Yes Qualifiers: Pneumonia type: due to unspecified organism Laterality: right Lung location: lower lobe of lung Qualified Code(s): J18.9 - Pneumonia, unspecified organism (4) Congestive heart failure SNOMED Code(s): 63578589 Code(s): I50.9 - HEART FAILURE, UNSPECIFIED Status: Acute Priority: Medium Current Visit: No Onset Date: ~06/22/17 Qualifiers: Heart failure type: systolic Heart failure chronicity: acute on chronic Qualified Code(s): I50.23 - Acute on chronic systolic (congestive) heart failure Annotation/Comment:: 06/22/17 - 1. Congestive heart failure, 2. Weakness, 3. Mild dehydration - Problem List Review Problem List Initiated/Reviewed/Updated: Yes - My Orders Last 24 Hours: My Active Orders 04/11/20 09:41 EKG Documentation Completion [RC] ASDIRECTED CXR [Chest 1V Frontal] [CR] Routine EKG 12 Lead [EK] Routine - Plan Plan:: 1- PNA: continue Levaquin 750 mg PO q 36-48 hrs due to CKD. 2- Acute Respiratory failure with Acute hypoxia: secondary to pneumonia and CHF. O2 Supply to keep SpO2 >94%. Continue diuresis. albuterol nebs PRN incentive spirometry. 3- Acute on Chronic CHF: continue diuresis lasix 40mg PO BID and daily weights. 4- Sinus tachycardia: EKG showed NSR tachycardia. probably 2/2 PNA and CHF. Home dose of atenolol was started on 04/11 5- Vertigo and dizziness: Meclizine 12.5mg PO as needed Dispo: rigging worker, PT and OT eval for need for placement, DMEs and medical assistance once stable
[2020-04-11] MEDS: Atenolol 50 MG Tab PO SCH (10:41)
[2020-04-11] MEDS: Acetaminophen 650 MG Tab.ER PO PRN ×2 (10:42→19:26)
[2020-04-11] MEDS ORDERED: Magnesium Oxide 400 MG Tab PO ONE (11:19)
[2020-04-11] MEDS ORDERED: Magnesium Oxide 400 MG Tab ONE (14:18)
[2020-04-11] MEDS: Furosemide 40 MG Tab PO SCH (15:07)
[2020-04-11] MEDS ORDERED: Furosemide 40 MG Tab PO SCH (18:00)
[2020-04-11] MEDS: atorvaSTATin 10 MG Tab PO SCH (19:26)
--- NOTE | 2020-04-12 07:48 | CR ---
Date of Service: 04/11/20 Clinical Data: SOB AP CHEST: Comparison is made to a prior exam dated 04/08/20 The heart size is stable. 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 There is persistent increased density in the right lung base consistent with basilar atelectasis or infiltrate, however, it does appear clearer than on the prior study. The left lung is stable. No pneumothorax. No pleural effusion. There is a moderate-sized hiatal hernia. [id number] [facility]
[2020-04-12] MEDS: Aspirin 81 MG Tab.Chew PO SCH (08:06)
[2020-04-12] MEDS: Levofloxacin 750 MG Tab PO SCH (08:07)
[2020-04-12] MEDS: Furosemide 40 MG Tab PO SCH ×2 (08:07→13:41)
[2020-04-12] MEDS: Atenolol 50 MG Tab PO SCH (08:07)
[2020-04-12] MEDS: Pantoprazole 40 MG Tab.CR PO SCH (08:07)
[2020-04-12] MEDS: Tiotropium Inhaler 18 MCG Inhalation Powder Cap Kit of 5 INH SCH (08:08)
[2020-04-12] MEDS: Acetaminophen 650 MG Tab.ER PO PRN ×2 (08:57→20:52)
[2020-04-12] MEDS: Ondansetron 4 MG/2 ML SDV IVPUSH PRN (09:54)
[2020-04-12] MEDS: Meclizine 12.5 MG Tab PO PRN (11:31)
--- NOTE | 2020-04-12 14:08 | PCM.PN ---
- General Info Date of Service: 04/12/20 Admission Dx/Problem (Free Text): pt admitted for weakness, dehydration, pneumonia, CHF exacerbation Subjective Update: reports her breathing is better than yesterday but still get SOB with exertions. No CP, no fever or chills. Reports some dizziness amrlin ambulation - she recalls it feels similar to previous episodes of vertigo. She had an uneventful morning but this after noon after returning from the bathroom. She told the nurse she is feeling dizzy and it's '' time for goodbye''. Rapid response was activated - BP was noted to be low 70/50, and HR was in 100- 120. She was breathing, but not responsive. IVF was given, EKG and labs were ordered. Patient regained consciousness and denies any CP, SOB or weakness. Functional Status: Reports: Tolerating Diet - Review of Systems General: Reports: Fatigue HEENT: Reports: No Symptoms Pulmonary: Reports: Shortness of Breath Cardiovascular: Reports: Dyspnea on Exertion, Orthopnea, Lightheadedness. Denies: Chest Pain Gastrointestinal: Reports: No Symptoms Musculoskeletal: Reports: No Symptoms Skin: Reports: No Symptoms Neurological: Reports: Dizziness. Denies: Headache, Numbness Psychiatric: Reports: No Symptoms - Patient Data Vitals - Most Recent: Last Vital Signs Temp 36.6 C 04/12/20 11:00 Pulse 80 04/12/20 11:00 Resp 16 04/12/20 11:00 BP 133/50 L 04/12/20 11:00 Pulse Ox 94 L 04/12/20 11:00 Weight - Most Recent: 78.188 kg I&O - Last 24 Hours: Intake & Output 04/11/20 04/12/20 04/12/20 22:59 06:59 14:59 Intake Total 940 400 Output Total 1125 1025 Balance -185 -625 Lab Results Last 24 Hours: Laboratory Results - last 24 hr 04/12/20 04/12/20 04/12/20 Range/Units 13:30 13:30 13:34 WBC 11.2 H D (4.0-11.0) K/uL RBC 4.03 (3.80-5.80) M/uL Hgb 11.3 L (11.5-16.5) g/dL Hct 38.3 (37.0-47.0) % MCV 95 (76-96) fL MCH 28.0 (27.0-32.0) pg MCHC 29.5 L (31.0-35.0) g/dL RDW 15.0 (11.0-16.0) % Plt Count 303 (150-500) K/uL MPV 8.8 (6.0-10.0) fL Sodium 137 (136-145) mmol/L Potassium 5.2 H (3.5-5.1) mmol/L Chloride 99 (98-107) mmol/L Carbon Dioxide 21.8 D (21.0-32.0) mmol/L Anion Gap 21.4 H (5.0-15.0) mmol/L BUN 24 D (8-26) mg/dL Creatinine 2.04 H D (0.55-1.02) mg/dL Est Cr Clr Drug Dosing 15.37 mL/min Estimated GFR (MDRD) 23 L (>60) MLS/MIN BUN/Creatinine Ratio 11.8 (6-25) Glucose 233 H D (74-100) mg/dL Calcium 8.5 (8.5-10.1) mg/dL Total Bilirubin 0.2 (0.0-1.0) mg/dL AST 22 (15-37) U/L ALT 23 (12-78) U/L Alkaline Phosphatase 86 (46-116) U/L Troponin I 0.428 H* D (0.000-0.060) ng/mL Total Protein 6.5 (6.4-8.2) g/dL Albumin 2.8 L (3.4-5.0) g/dL Globulin 3.7 (2.2-4.2) g/dL Albumin/Globulin Ratio 0.8 (0.8-2.0) Med Orders - Current: Current Medications Acetaminophen (Tylenol Arthritis Pain) 1,300 mg PO TID PRN PRN Reason: Pain Last Admin: 04/12/20 08:57 Dose: 1,300 mg Documented by: Albuterol (Proventil Neb Soln) 2.5 mg NEB Q4H PRN PRN Reason: short of breath Last Admin: 04/11/20 08:48 Dose: 2.5 mg Documented by: Aspirin (Aspirin) 81 mg PO DAILY [facility] Last Admin: 04/12/20 08:06 Dose: 81 mg Documented by: Atenolol (Tenormin) 25 mg PO DAILY [facility] Last Admin: 04/12/20 08:07 Dose: 25 mg Documented by: Atorvastatin Calcium (Lipitor) 10 mg PO BEDTIME [facility] Last Admin: 04/11/20 19:26 Dose: 10 mg Documented by: Calamine/Phenol (Calmoseptine) 0 gm TOP QID PRN PRN Reason: Rash Last Admin: 04/08/20 10:12 Dose: 1 applic Documented by: Furosemide (Lasix) 40 mg PO BID@0800,1400 [facility] Last Admin: 04/12/20 13:41 Dose: Not Given Documented by: Levofloxacin (Levaquin) 750 mg PO Q48H [facility] Last Admin: 04/12/20 08:07 Dose: 750 mg Documented by: Meclizine HCl (Antivert) 12.5 mg PO DAILY PRN PRN Reason: Dizziness Last Admin: 04/12/20 11:31 Dose: 12.5 mg Documented by: Ondansetron HCl (Zofran) 4 mg IVPUSH Q6H PRN PRN Reason: Nausea/Vomiting Last Admin: 04/12/20 09:54 Dose: 4 mg Documented by: Pantoprazole Sodium (Protonix) 40 mg PO ACBREAKFAST [facility] Last Admin: 04/12/20 08:07 Dose: 40 mg Documented by: Sodium Chloride (Saline Flush) 10 ml FLUSH ASDIRECTED PRN PRN Reason: Keep Vein Open Last Admin: 04/11/20 19:42 Dose: 10 ml Documented by: Tiotropium [place] (Spiriva Handihaler) 18 mcg INH DAILY [facility] Last Admin: 04/12/20 08:08 Dose: 1 puff Documented by: Trolamine Salicylate (Aspercreme 10%) 0 gm TOP Q1H PRN PRN Reason: Other Last Admin: 04/08/20 14:13 Dose: 1 applic Documented by: Discontinued Medications Acetaminophen (Tylenol Arthritis Pain) 1,300 mg PO TID [facility] Last Admin: 04/08/20 18:58 Dose: Not Given Documented by: Albuterol/Ipratropium (Duoneb 3.0-0.5 Mg/3 Ml) Confirm Administered Dose 3 ml .ROUTE .STK-MED ONE Stop: 04/07/20 19:05 Last Admin: 04/07/20 19:30 Dose: Not Given Documented by: Albuterol/Ipratropium (Duoneb 3.0-0.5 Mg/3 Ml) 3 ml NEB Q2H [facility] Stop: 04/07/20 19:01 Last Admin: 04/07/20 19:00 Dose: 3 ml Documented by: Furosemide (Lasix) 20 mg IVPUSH ONETIME ONE Stop: 04/08/20 16:11 Last Admin: 04/08/20 16:40 Dose: 20 mg Documented by: Furosemide (Lasix) 20 mg PO ONETIME [facility] Stop: 04/10/20 12:24 Last Admin: 04/10/20 13:40 Dose: 20 mg Documented by: Furosemide (Lasix) 40 mg IVPUSH NOW [facility] Stop: 04/10/20 16:21 Last Admin: 04/10/20 16:31 Dose: 40 mg Documented by: Furosemide (Lasix) 20 mg IVPUSH BIDDIURETIC [facility] Last Admin: 04/11/20 07:43 Dose: 20 mg Documented by: Furosemide (Lasix) 40 mg PO BID [facility] Sodium Chloride (Normal Saline) 1,000 mls @ 75 mls/hr IV ASDIRECTED [facility] Last Admin: 04/08/20 10:08 Dose: 100 mls/hr Documented by: Levofloxacin/Dextrose 750 mg/ (Levofloxacin/Dextrose) 300 mls @ 100 mls/hr IV Q24H [facility] Stop: 04/12/20 09:00 Last Admin: 04/08/20 10:10 Dose: 100 mls/hr Documented by: Sodium Chloride (Normal Saline) 500 mls @ 100 mls/hr IV .BOLUS ONE Stop: 04/08/20 13:44 Last Admin: 04/08/20 09:10 Dose: 500 mls/hr Documented by: Levofloxacin/Dextrose (Levaquin In D5w 750 Mg/150 Ml) Confirm Administered Dose 150 mls @ as directed IV .STK-MED ONE Stop: 04/08/20 09:54 Last Admin: 04/08/20 10:10 Dose: Not Given Documented by: Sodium Chloride (Normal Saline) 1,000 mls @ 75 mls/hr IV ASDIRECTED [facility] Last Admin: 04/08/20 11:40 Dose: 75 mls/hr Documented by: Levofloxacin/Dextrose 750 mg/ (Levofloxacin/Dextrose) 300 mls @ 100 mls/hr IV Q48H [facility] Stop: 04/12/20 09:00 Loperamide HCl (Imodium) 4 mg PO ONETIME ONE Stop: 04/08/20 08:49 Last Admin: 04/08/20 09:17 Dose: 4 mg Documented by: Magnesium Oxide (Magnesium Oxide) 400 mg PO ONETIME ONE Stop: 04/11/20 11:20 Last Admin: 04/11/20 14:18 Dose: 400 mg Documented by: Magnesium Oxide (Magnesium Oxide) Confirm Administered Dose 400 mg .ROUTE .STK-MED ONE Stop: 04/11/20 14:19 Last Admin: 04/11/20 14:23 Dose: Not Given Documented by: Meclizine HCl (Antivert) 12.5 mg PO ONETIME ONE Stop: 04/11/20 09:46 Last Admin: 04/11/20 10:41 Dose: 12.5 mg Documented by: Ondansetron HCl (Zofran) Confirm Administered Dose 4 mg .ROUTE .STK-MED ONE Stop: 04/07/20 19:13 Last Admin: 04/07/20 19:05 Dose: Not Given Documented by: - Exam Quality Assessment: Supplemental Oxygen General: Alert, Oriented, Cooperative, No Acute Distress HEENT: Pupils Equal, Pupils Reactive Lungs: Normal Respiratory Effort, Other (b/l basal fine crackles) Cardiovascular: Regular Rhythm, Tachycardia GI/Abdominal Exam: Normal Bowel Sounds, Soft, Non-Tender Extremities: Pedal Edema (+ b/l pitting) Skin: Warm Psy/Mental Status: Alert, Normal Affect #1 Interpretation EKG Date: 04/12/20 Rhythm: NSR Rate (Beats/Min): 105 QRS: Normal ST-T: Normal QT: Normal Sepsis Event Note - Evaluation Sepsis Screening Result: No Definite Risk - Focused Exam Vital Signs: Vital Signs Temp Pulse Pulse Resp BP BP Pulse Ox 04/12/20 11:00 36.6 C 80 16 133/50 L 94 L 04/12/20 08:07 79 157/75 H 04/12/20 07:00 35.9 C L 79 18 157/75 H 94 L 04/12/20 03:00 36.4 C 90 16 95 - Problem List & Annotations (1) Tachycardia SNOMED Code(s): 4347496 Code(s): R00.0 - TACHYCARDIA, UNSPECIFIED Status: Acute Priority: Medium Current Visit: Yes (2) Acute respiratory failure with hypoxia SNOMED Code(s): 96060565, 634675824 Code(s): J96.01 - ACUTE RESPIRATORY FAILURE WITH HYPOXIA Status: Acute Priority: High Current Visit: Yes (3) Pneumonia SNOMED Code(s): 889927156 Code(s): J18.9 - PNEUMONIA, UNSPECIFIED ORGANISM Status: Acute Priority: High Current Visit: Yes Qualifiers: Pneumonia type: due to unspecified organism Laterality: right Lung location: lower lobe of lung Qualified Code(s): J18.9 - Pneumonia, unspecified organism (4) Congestive heart failure SNOMED Code(s): 75699801 Code(s): I50.9 - HEART FAILURE, UNSPECIFIED Status: Acute Priority: Medium Current Visit: No Onset Date: ~06/22/17 Qualifiers: Heart failure type: systolic Heart failure chronicity: acute on chronic Qualified Code(s): I50.23 - Acute on chronic systolic (congestive) heart failure Annotation/Comment:: 06/22/17 - 1. Congestive heart failure, 2. Weakness, 3. Mild dehydration (5) Syncope and collapse SNOMED Code(s): 846460199 Code(s): R55 - SYNCOPE AND COLLAPSE Status: Acute Priority: Medium Current Visit: Yes (6) LUZ MARIA (acute kidney injury) SNOMED Code(s): 12285220, 67701988 Code(s): N17.9 - ACUTE KIDNEY FAILURE, UNSPECIFIED Status: Acute Priority: Medium Current Visit: Yes - Problem List Review Problem List Initiated/Reviewed/Updated: Yes - My Orders Last 24 Hours: My Active Orders 04/11/20 16:00 Furosemide [Lasix] 40 mg PO BID@0800,1400 04/11/20 20:00 atorvaSTATin [Lipitor] 10 mg PO BEDTIME 04/12/20 11:18 Meclizine [Antivert] 12.5 mg PO DAILY PRN 04/12/20 13:14 EKG Documentation Completion [RC] ASDIRECTED - Plan Plan:: 1- PNA: continue Levaquin 750 mg PO q 36-48 hrs due to CKD. 2- Acute Respiratory failure with Acute hypoxia: secondary to pneumonia and CHF. O2 Supply to keep SpO2 >94%. diuretics were started 04/09. albuterol nebs PRN. incentive spirometry. 3- Acute on Chronic CHF: will decrease diuresis lasix to 10mg PO BID and daily weights. 4- Sinus tachycardia: EKG showed NSR tachycardia. probably 2/2 PNA and CHF. Home dose of atenolol was started on 04/11 5- Vertigo and dizziness: Meclizine 12.5mg PO as needed 6- Syncope: probably 2/2 cardiac event or dehydration from diuresis. Will hold on diuretics today and continue to monitor. Dispo: public health worker, PT and OT eval for need for placement, DMEs and medical assistance once stable . On 04/12/20 - patient had a syncopal episode while ambulating from the bathroom to her bed. BP was found to be low. Responded well to fluids. No neurological deficits.
[2020-04-12] MEDS: atorvaSTATin 10 MG Tab PO SCH (20:52)
[2020-04-13] MEDS: Aspirin 81 MG Tab.Chew PO SCH (09:11)
[2020-04-13] MEDS: Pantoprazole 40 MG Tab.CR PO SCH (09:11)
[2020-04-13] MEDS: Atenolol 50 MG Tab PO SCH (09:11)
[2020-04-13] MEDS: Tiotropium Inhaler 18 MCG Inhalation Powder Cap Kit of 5 INH SCH (09:12)
[2020-04-13] MEDS: Meclizine 12.5 MG Tab PO PRN (09:20)
--- NOTE | 2020-04-13 10:54 | PCM.PN ---
- General Info Date of Service: 04/13/20 Admission Dx/Problem (Free Text): pt admitted for weakness, dehydration, pneumonia, CHF exacerbation Subjective Update: reports her breathing is improving and is experiencing less dizziness than yesterday No CP, no fever or chills. Vitals have been stable and good - Review of Systems General: Reports: No Symptoms HEENT: Reports: No Symptoms Pulmonary: Reports: Shortness of Breath Cardiovascular: Reports: Dyspnea on Exertion (improving) Gastrointestinal: Reports: No Symptoms Musculoskeletal: Reports: No Symptoms Skin: Reports: No Symptoms Neurological: Reports: No Symptoms, Dizziness Psychiatric: Reports: No Symptoms - Patient Data Vitals - Most Recent: Last Vital Signs Temp 36.2 C 04/13/20 07:00 Pulse 71 04/13/20 09:11 Resp 17 04/13/20 07:00 BP 140/70 04/13/20 09:11 Pulse Ox 100 04/13/20 07:00 Weight - Most Recent: 77.746 kg I&O - Last 24 Hours: Intake & Output 04/12/20 04/13/20 04/13/20 22:59 06:59 14:59 Intake Total 1160 300 Output Total 400 650 Balance 760 -350 Lab Results Last 24 Hours: Laboratory Results - last 24 hr 04/12/20 04/12/20 04/12/20 Range/Units 13:30 13:30 13:34 WBC 11.2 H D (4.0-11.0) K/uL RBC 4.03 (3.80-5.80) M/uL Hgb 11.3 L (11.5-16.5) g/dL Hct 38.3 (37.0-47.0) % MCV 95 (76-96) fL MCH 28.0 (27.0-32.0) pg MCHC 29.5 L (31.0-35.0) g/dL RDW 15.0 (11.0-16.0) % Plt Count 303 (150-500) K/uL MPV 8.8 (6.0-10.0) fL Sodium 137 (136-145) mmol/L Potassium 5.2 H (3.5-5.1) mmol/L Chloride 99 (98-107) mmol/L Carbon Dioxide 21.8 D (21.0-32.0) mmol/L Anion Gap 21.4 H (5.0-15.0) mmol/L BUN 24 D (8-26) mg/dL Creatinine 2.04 H D (0.55-1.02) mg/dL Est Cr Clr Drug Dosing 15.37 mL/min Estimated GFR (MDRD) 23 L (>60) MLS/MIN BUN/Creatinine Ratio 11.8 (6-25) Glucose 233 H D (74-100) mg/dL Calcium 8.5 (8.5-10.1) mg/dL Total Bilirubin 0.2 (0.0-1.0) mg/dL AST 22 (15-37) U/L ALT 23 (12-78) U/L Alkaline Phosphatase 86 (46-116) U/L Troponin I 0.428 H* D (0.000-0.060) ng/mL Total Protein 6.5 (6.4-8.2) g/dL Albumin 2.8 L (3.4-5.0) g/dL Globulin 3.7 (2.2-4.2) g/dL Albumin/Globulin Ratio 0.8 (0.8-2.0) Med Orders - Current: Current Medications Acetaminophen (Tylenol Arthritis Pain) 1,300 mg PO TID PRN PRN Reason: Pain Last Admin: 04/12/20 20:52 Dose: 1,300 mg Documented by: Albuterol (Proventil Neb Soln) 2.5 mg NEB Q4H PRN PRN Reason: short of breath Last Admin: 04/11/20 08:48 Dose: 2.5 mg Documented by: Aspirin (Aspirin) 81 mg PO DAILY [facility] Last Admin: 04/13/20 09:11 Dose: 81 mg Documented by: Atenolol (Tenormin) 25 mg PO DAILY [facility] Last Admin: 04/13/20 09:11 Dose: 25 mg Documented by: Atorvastatin Calcium (Lipitor) 10 mg PO BEDTIME [facility] Last Admin: 04/12/20 20:52 Dose: 10 mg Documented by: Calamine/Phenol (Calmoseptine) 0 gm TOP QID PRN PRN Reason: Rash Last Admin: 04/08/20 10:12 Dose: 1 applic Documented by: Levofloxacin (Levaquin) 750 mg PO Q48H [facility] Last Admin: 04/12/20 08:07 Dose: 750 mg Documented by: Meclizine HCl (Antivert) 12.5 mg PO DAILY PRN PRN Reason: Dizziness Last Admin: 04/13/20 09:20 Dose: 12.5 mg Documented by: Ondansetron HCl (Zofran) 4 mg IVPUSH Q6H PRN PRN Reason: Nausea/Vomiting Last Admin: 04/12/20 09:54 Dose: 4 mg Documented by: Pantoprazole Sodium (Protonix) 40 mg PO ACBREAKFAST [facility] Last Admin: 04/13/20 09:11 Dose: 40 mg Documented by: Sodium Chloride (Saline Flush) 10 ml FLUSH ASDIRECTED PRN PRN Reason: Keep Vein Open Last Admin: 04/11/20 19:42 Dose: 10 ml Documented by: Tiotropium [place] (Spiriva Handihaler) 18 mcg INH DAILY [facility] Last Admin: 04/13/20 09:12 Dose: 1 puff Documented by: Trolamine Salicylate (Aspercreme 10%) 0 gm TOP Q1H PRN PRN Reason: Other Last Admin: 04/08/20 14:13 Dose: 1 applic Documented by: Discontinued Medications Acetaminophen (Tylenol Arthritis Pain) 1,300 mg PO TID [facility] Last Admin: 04/08/20 18:58 Dose: Not Given Documented by: Albuterol/Ipratropium (Duoneb 3.0-0.5 Mg/3 Ml) Confirm Administered Dose 3 ml .ROUTE .STK-MED ONE Stop: 04/07/20 19:05 Last Admin: 04/07/20 19:30 Dose: Not Given Documented by: Albuterol/Ipratropium (Duoneb 3.0-0.5 Mg/3 Ml) 3 ml NEB Q2H ONE Stop: 04/07/20 19:01 Last Admin: 04/07/20 19:00 Dose: 3 ml Documented by: Furosemide (Lasix) 20 mg IVPUSH ONETIME ONE Stop: 04/08/20 16:11 Last Admin: 04/08/20 16:40 Dose: 20 mg Documented by: Furosemide (Lasix) 20 mg PO ONETIME ONE Stop: 04/10/20 12:24 Last Admin: 04/10/20 13:40 Dose: 20 mg Documented by: Furosemide (Lasix) 40 mg IVPUSH NOW ONE Stop: 04/10/20 16:21 Last Admin: 04/10/20 16:31 Dose: 40 mg Documented by: Furosemide (Lasix) 20 mg IVPUSH BIDDIURETIC [facility] Last Admin: 04/11/20 07:43 Dose: 20 mg Documented by: Furosemide (Lasix) 40 mg PO BID [place] Furosemide (Lasix) 40 mg PO BID@0800,1400 [facility] Last Admin: 04/12/20 13:41 Dose: Not Given Documented by: Sodium Chloride (Normal Saline) 1,000 mls @ 75 mls/hr IV ASDIRECTED [facility] Last Admin: 04/08/20 10:08 Dose: 100 mls/hr Documented by: Levofloxacin/Dextrose 750 mg/ (Levofloxacin/Dextrose) 300 mls @ 100 mls/hr IV Q24H [facility] Stop: 04/12/20 09:00 Last Admin: 04/08/20 10:10 Dose: 100 mls/hr Documented by: Sodium Chloride (Normal Saline) 500 mls @ 100 mls/hr IV .BOLUS ONE Stop: 04/08/20 13:44 Last Admin: 04/08/20 09:10 Dose: 500 mls/hr Documented by: Levofloxacin/Dextrose (Levaquin In D5w 750 Mg/150 Ml) Confirm Administered Dose 150 mls @ as directed IV .STK-MED ONE Stop: 04/08/20 09:54 Last Admin: 04/08/20 10:10 Dose: Not Given Documented by: Sodium Chloride (Normal Saline) 1,000 mls @ 75 mls/hr IV ASDIRECTED [facility] Last Admin: 04/08/20 11:40 Dose: 75 mls/hr Documented by: Levofloxacin/Dextrose 750 mg/ (Levofloxacin/Dextrose) 300 mls @ 100 mls/hr IV Q48H [facility] Stop: 04/12/20 09:00 Loperamide HCl (Imodium) 4 mg PO ONETIME ONE Stop: 04/08/20 08:49 Last Admin: 04/08/20 09:17 Dose: 4 mg Documented by: Magnesium Oxide (Magnesium Oxide) 400 mg PO ONETIME ONE Stop: 04/11/20 11:20 Last Admin: 04/11/20 14:18 Dose: 400 mg Documented by: Magnesium Oxide (Magnesium Oxide) Confirm Administered Dose 400 mg .ROUTE .STK- MED ONE Stop: 04/11/20 14:19 Last Admin: 04/11/20 14:23 Dose: Not Given Documented by: Meclizine HCl (Antivert) 12.5 mg PO ONETIME ONE Stop: 04/11/20 09:46 Last Admin: 04/11/20 10:41 Dose: 12.5 mg Documented by: Ondansetron HCl (Zofran) Confirm Administered Dose 4 mg .ROUTE .STK-MED ONE Stop: 04/07/20 19:13 Last Admin: 04/07/20 19:05 Dose: Not Given Documented by: - Exam Quality Assessment: Supplemental Oxygen General: Alert, Oriented, Cooperative, No Acute Distress HEENT: Pupils Equal Lungs: Clear to Auscultation, Normal Respiratory Effort Cardiovascular: Regular Rate, Regular Rhythm GI/Abdominal Exam: Normal Bowel Sounds, Soft, Non-Tender Back Exam: Normal Inspection Extremities: Normal Inspection, No Pedal Edema Skin: Warm, Dry Neurological: No New Focal Deficit Psy/Mental Status: Alert, Normal Affect, Normal Mood Sepsis Event Note - Evaluation Sepsis Screening Result: No Definite Risk - Focused Exam Vital Signs: Vital Signs Temp Pulse Pulse Resp BP BP Pulse Ox 04/13/20 09:11 71 140/70 04/13/20 07:00 36.2 C 71 17 140/70 100 04/13/20 03:00 36.3 C 77 20 120/68 93 L 04/12/20 23:00 36.3 C 88 20 119/67 90 L - Problem List & Annotations (1) Tachycardia SNOMED Code(s): 7003509 Code(s): R00.0 - TACHYCARDIA, UNSPECIFIED Status: Acute Priority: Medium Current Visit: Yes (2) Acute respiratory failure with hypoxia SNOMED Code(s): 80864394, 565095296 Code(s): J96.01 - ACUTE RESPIRATORY FAILURE WITH HYPOXIA Status: Acute Priority: High Current Visit: Yes (3) Pneumonia SNOMED Code(s): 738492067 Code(s): J18.9 - PNEUMONIA, UNSPECIFIED ORGANISM Status: Acute Priority: High Current Visit: Yes Qualifiers: Pneumonia type: due to unspecified organism Laterality: right Lung location: lower lobe of lung Qualified Code(s): J18.9 - Pneumonia, unspecified organism (4) Congestive heart failure SNOMED Code(s): 34572074 Code(s): I50.9 - HEART FAILURE, UNSPECIFIED Status: Acute Priority: Medium Current Visit: No Onset Date: ~06/22/17 Qualifiers: Heart failure type: systolic Heart failure chronicity: acute on chronic Qualified Code(s): I50.23 - Acute on chronic systolic (congestive) heart failure Annotation/Comment:: 06/22/17 - 1. Congestive heart failure, 2. Weakness, 3. Mild dehydration (5) Syncope and collapse SNOMED Code(s): 297348832 Code(s): R55 - SYNCOPE AND COLLAPSE Status: Acute Priority: Medium Current Visit: Yes (6) LUZ MARIA (acute kidney injury) SNOMED Code(s): 58052113, 81922883 Code(s): N17.9 - ACUTE KIDNEY FAILURE, UNSPECIFIED Status: Acute Priority: Medium Current Visit: Yes - Problem List Review Problem List Initiated/Reviewed/Updated: Yes - My Orders Last 24 Hours: My Active Orders 04/12/20 11:18 Meclizine [Antivert] 12.5 mg PO DAILY PRN 04/12/20 13:14 EKG Documentation Completion [RC] ASDIRECTED 04/13/20 10:49 BASIC METABOLIC PANEL,BMP [CHEM] Routine - Plan Plan:: 1- PNA: continue Levaquin 750 mg PO q 36-48 hrs due to CKD. 2- Acute Respiratory failure with Acute hypoxia: secondary to pneumonia and CHF. O2 Supply to keep SpO2 >94%. diuretics were started 04/09 but held off on 04/12 due to an episode of hypotension and syncope. albuterol nebs PRN. incentive spirometry. 3- Acute on Chronic CHF: she does need diuretics but holding on this till Cr/GFR improves. daily weights. 4- Sinus tachycardia: EKG showed NSR tachycardia. probably 2/2 PNA and CHF. Home dose of atenolol was started on 04/11 5- Vertigo and dizziness: Meclizine 12.5mg PO as needed 6- Syncope on 04/12 - resolved- : probably 2/2 cardiac event, NSTEMI, or dehydration from diuresis. continue to hold on diuretics. and continue to monitor. Dispo: reworker, PT and OT eval for need for placement, DMEs and medical ass istance once stable .
[2020-04-13] MEDS: atorvaSTATin 10 MG Tab PO SCH (19:33)
[2020-04-13] MEDS: Acetaminophen 650 MG Tab.ER PO PRN (19:33)
[2020-04-13] MEDS: Nystatin Topical Powder 15 GM Bottle TOP SCH (20:00)
[2020-04-14] MEDS: Aspirin 81 MG Tab.Chew PO SCH (08:15)
[2020-04-14] MEDS: Pantoprazole 40 MG Tab.CR PO SCH (08:15)
[2020-04-14] MEDS: Nystatin Topical Powder 15 GM Bottle TOP SCH ×2 (08:16→20:00)
[2020-04-14] MEDS: Levofloxacin 750 MG Tab PO SCH (08:16)
[2020-04-14] MEDS: Atenolol 50 MG Tab PO SCH (08:16)
[2020-04-14] MEDS: Tiotropium Inhaler 18 MCG Inhalation Powder Cap Kit of 5 INH SCH (08:16)
[2020-04-14] MEDS: Meclizine 12.5 MG Tab PO PRN (10:20)
[2020-04-14] MEDS: Acetaminophen 650 MG Tab.ER PO PRN ×2 (11:32→20:01)
--- NOTE | 2020-04-14 14:06 | PCM.PN ---
- General Info Date of Service: 04/14/20 Admission Dx/Problem (Free Text): pt admitted for weakness, dehydration, pneumonia, CHF exacerbation Subjective Update: patient reports she is feeling better. her SOB is improving Sleeping better and eating well/ No CP, but still gets dizzy spell in the morning, for which meclizine helps a lot. No change in weight still requiring 4-5 lit O2 by [place] Functional Status: Reports: Pain Controlled, Tolerating Diet, Incentive Niall metry - Review of Systems General: Reports: No Symptoms HEENT: Reports: No Symptoms Pulmonary: Reports: Other (exertional dyspnea) Gastrointestinal: Reports: No Symptoms Genitourinary: Reports: No Symptoms Skin: Reports: No Symptoms Neurological: Reports: No Symptoms Psychiatric: Reports: No Symptoms - Patient Data Vitals - Most Recent: Last Vital Signs Temp 36.6 C 04/14/20 08:00 Pulse 68 04/14/20 08:16 Resp 18 04/14/20 08:00 BP 142/46 H 04/14/20 08:16 Pulse Ox 95 04/14/20 08:00 Weight - Most Recent: 77.678 kg I&O - Last 24 Hours: Intake & Output 04/13/20 04/14/20 04/14/20 22:59 06:59 14:59 Intake Total 760 300 Output Total 625 650 Balance 135 -350 Lab Results Last 24 Hours: Laboratory Results - last 24 hr 04/14/20 Range/Units 10:00 Sodium 137 (136-145) mmol/L Potassium 5.0 (3.5-5.1) mmol/L Chloride 101 (98-107) mmol/L Carbon Dioxide 31.7 (21.0-32.0) mmol/L Anion Gap 9.3 (5.0-15.0) mmol/L BUN 30 H (8-26) mg/dL Creatinine 1.65 H (0.55-1.02) mg/dL Est Cr Clr Drug Dosing 19.00 mL/min Estimated GFR (MDRD) 29 L (>60) MLS/MIN BUN/Creatinine Ratio 18.2 (6-25) Glucose 115 H (74-100) mg/dL Calcium 8.6 (8.5-10.1) mg/dL Jose Results Last 24 Hours: Microbiology 04/07/20 18:34 Salmonella/Shigella Screen - Final Rectum Campylobacter Culture - Preliminary Escherichia coli Shiga Toxins EIA - Final Med Orders - Current: Current Medications Acetaminophen (Tylenol Arthritis Pain) 1,300 mg PO TID PRN PRN Reason: Pain Last Admin: 04/14/20 11:32 Dose: 1,300 mg Documented by: Albuterol (Proventil Neb Soln) 2.5 mg NEB Q4H PRN PRN Reason: short of breath Last Admin: 04/11/20 08:48 Dose: 2.5 mg Documented by: Aspirin (Aspirin) 81 mg PO DAILY [facility] Last Admin: 04/14/20 08:15 Dose: 81 mg Documented by: Atenolol (Tenormin) 12.5 mg PO DAILY [facility] Atorvastatin Calcium (Lipitor) 10 mg PO BEDTIME [facility] Last Admin: 04/13/20 19:33 Dose: 10 mg Documented by: Calamine/Phenol (Calmoseptine) 0 gm TOP QID PRN PRN Reason: Rash Last Admin: 04/08/20 10:12 Dose: 1 applic Documented by: Levofloxacin (Levaquin) 750 mg PO Q48H [facility] Last Admin: 04/14/20 08:16 Dose: 750 mg Documented by: Nystatin (Nystop) 1 gm TOP BID [facility] Last Admin: 04/14/20 08:16 Dose: 1 applic Documented by: Ondansetron HCl (Zofran) 4 mg IVPUSH Q6H PRN PRN Reason: Nausea/Vomiting Last Admin: 04/12/20 09:54 Dose: 4 mg Documented by: Pantoprazole Sodium (Protonix) 40 mg PO ACBREAKFAST [facility] Last Admin: 04/14/20 08:15 Dose: 40 mg Documented by: Sodium Chloride (Saline Flush) 10 ml FLUSH ASDIRECTED PRN PRN Reason: Keep Vein Open Last Admin: 04/11/20 19:42 Dose: 10 ml Documented by: Tiotropium [place] (Spiriva Handihaler) 18 mcg INH DAILY [facility] Last Admin: 04/14/20 08:16 Dose: 1 puff Documented by: Trolamine Salicylate (Aspercreme 10%) 0 gm TOP Q1H PRN PRN Reason: Other Last Admin: 04/08/20 14:13 Dose: 1 applic Documented by: Discontinued Medications Acetaminophen (Tylenol Arthritis Pain) 1,300 mg PO TID [facility] Last Admin: 04/08/20 18:58 Dose: Not Given Documented by: Albuterol/Ipratropium (Duoneb 3.0-0.5 Mg/3 Ml) Confirm Administered Dose 3 ml .ROUTE .STK-MED ONE Stop: 04/07/20 19:05 Last Admin: 04/07/20 19:30 Dose: Not Given Documented by: Albuterol/Ipratropium (Duoneb 3.0-0.5 Mg/3 Ml) 3 ml NEB Q2H ONE Stop: 04/07/20 19:01 Last Admin: 04/07/20 19:00 Dose: 3 ml Documented by: Atenolol (Tenormin) 25 mg PO DAILY [facility] Last Admin: 04/14/20 08:16 Dose: 25 mg Documented by: Furosemide (Lasix) 20 mg IVPUSH ONETIME ONE Stop: 04/08/20 16:11 Last Admin: 04/08/20 16:40 Dose: 20 mg Documented by: Furosemide (Lasix) 20 mg PO ONETIME ONE Stop: 04/10/20 12:24 Last Admin: 04/10/20 13:40 Dose: 20 mg Documented by: Furosemide (Lasix) 40 mg IVPUSH NOW ONE Stop: 04/10/20 16:21 Last Admin: 04/10/20 16:31 Dose: 40 mg Documented by: Furosemide (Lasix) 20 mg IVPUSH BIDDIURETIC [facility] Last Admin: 04/11/20 07:43 Dose: 20 mg Documented by: Furosemide (Lasix) 40 mg PO BID [place] Furosemide (Lasix) 40 mg PO BID@0800,1400 [facility] Last Admin: 04/12/20 13:41 Dose: Not Given Documented by: Sodium Chloride (Normal Saline) 1,000 mls @ 75 mls/hr IV ASDIRECTED [facility] Last Admin: 04/08/20 10:08 Dose: 100 mls/hr Documented by: Levofloxacin/Dextrose 750 mg/ (Levofloxacin/Dextrose) 300 mls @ 100 mls/hr IV Q24H [facility] Stop: 04/12/20 09:00 Last Admin: 04/08/20 10:10 Dose: 100 mls/hr Documented by: Sodium Chloride (Normal Saline) 500 mls @ 100 mls/hr IV .BOLUS ONE Stop: 04/08/20 13:44 Last Admin: 04/08/20 09:10 Dose: 500 mls/hr Documented by: Levofloxacin/Dextrose (Levaquin In D5w 750 Mg/150 Ml) Confirm Administered Dose 150 mls @ as directed IV .STK-MED ONE Stop: 04/08/20 09:54 Last Admin: 04/08/20 10:10 Dose: Not Given Documented by: Sodium Chloride (Normal Saline) 1,000 mls @ 75 mls/hr IV ASDIRECTED [facility] Last Admin: 04/08/20 11:40 Dose: 75 mls/hr Documented by: Levofloxacin/Dextrose 750 mg/ (Levofloxacin/Dextrose) 300 mls @ 100 mls/hr IV Q48H [facility] Stop: 04/12/20 09:00 Loperamide HCl (Imodium) 4 mg PO ONETIME ONE Stop: 04/08/20 08:49 Last Admin: 04/08/20 09:17 Dose: 4 mg Documented by: Magnesium Oxide (Magnesium Oxide) 400 mg PO ONETIME ONE Stop: 04/11/20 11:20 Last Admin: 04/11/20 14:18 Dose: 400 mg Documented by: Magnesium Oxide (Magnesium Oxide) Confirm Administered Dose 400 mg .ROUTE .STK- MED ONE Stop: 04/11/20 14:19 Last Admin: 04/11/20 14:23 Dose: Not Given Documented by: Meclizine HCl (Antivert) 12.5 mg PO ONETIME ONE Stop: 04/11/20 09:46 Last Admin: 04/11/20 10:41 Dose: 12.5 mg Documented by: Meclizine HCl (Antivert) 12.5 mg PO DAILY PRN PRN Reason: Dizziness Last Admin: 04/14/20 10:20 Dose: 12.5 mg Documented by: Ondansetron HCl (Zofran) Confirm Administered Dose 4 mg .ROUTE .STK-MED ONE Stop: 04/07/20 19:13 Last Admin: 04/07/20 19:05 Dose: Not Given Documented by: - Exam Quality Assessment: Supplemental Oxygen General: Alert, Oriented, Cooperative, No Acute Distress HEENT: Pupils Equal, Pupils Reactive, EOMI Neck: Supple Lungs: Normal Respiratory Effort. No: Wheezing Cardiovascular: Regular Rate, Regular Rhythm GI/Abdominal Exam: Normal Bowel Sounds, Soft, Non-Tender Back Exam: Normal Inspection Extremities: Normal Inspection, Normal Range of Motion, Non-Tender, No Pedal Edema. No: Pedal Edema Sepsis Event Note - Evaluation Sepsis Screening Result: No Definite Risk - Focused Exam Vital Signs: Vital Signs Temp Pulse Pulse Resp BP BP Pulse Ox 04/14/20 08:16 68 142/46 H 04/14/20 08:00 36.6 C 68 18 142/46 H 95 04/14/20 06:28 64 20 92 L 04/14/20 03:00 36.6 C 69 18 106/48 L 90 L - Problem List & Annotations (1) Tachycardia SNOMED Code(s): 6792739 Code(s): R00.0 - TACHYCARDIA, UNSPECIFIED Status: Acute Priority: Medium Current Visit: Yes (2) Acute respiratory failure with hypoxia SNOMED Code(s): 77635680, 963212103 Code(s): J96.01 - ACUTE RESPIRATORY FAILURE WITH HYPOXIA Status: Acute Priority: High Current Visit: Yes (3) Pneumonia SNOMED Code(s): 914234082 Code(s): J18.9 - PNEUMONIA, UNSPECIFIED ORGANISM Status: Acute Priority: High Current Visit: Yes Qualifiers: Pneumonia type: due to unspecified organism Laterality: right Lung location: lower lobe of lung Qualified Code(s): J18.9 - Pneumonia, unspecified organism (4) Congestive heart failure SNOMED Code(s): 96432202 Code(s): I50.9 - HEART FAILURE, UNSPECIFIED Status: Acute Priority: Medium Current Visit: No Onset Date: ~06/22/17 Qualifiers: Heart failure type: systolic Heart failure chronicity: acute on chronic Qualified Code(s): I50.23 - Acute on chronic systolic (congestive) heart failure Annotation/Comment:: 06/22/17 - 1. Congestive heart failure, 2. Weakness, 3. Mild dehydration (5) Syncope and collapse SNOMED Code(s): 330020109 Code(s): R55 - SYNCOPE AND COLLAPSE Status: Acute Priority: Medium Current Visit: Yes (6) LUZ MAIRA (acute kidney injury) SNOMED Code(s): 58676460, 94500687 Code(s): N17.9 - ACUTE KIDNEY FAILURE, UNSPECIFIED Status: Acute Priority: Medium Current Visit: Yes - Problem List Review Problem List Initiated/Reviewed/Updated: Yes - My Orders Last 24 Hours: My Active Orders 04/13/20 20:00 Nystatin [Nystop] 1 gm TOP BID 04/15/20 08:00 atenoloL [Tenormin] 12.5 mg PO DAILY - Plan Plan:: 1- PNA: continue Levaquin 750 mg PO q 36-48 hrs due to CKD. 2- Acute Respiratory failure with Acute hypoxia: secondary to pneumonia and CHF. O2 Supply to keep SpO2 >94%. diuretics were started on 04/09 but held off on 04/12 due to an episode of hypotension and syncope. albuterol nebs PRN. incentive spirometry. She is on 4 lit of O2 at home. 3- Acute on Chronic CHF: she does need diuretics but holding on this till Cr/GFR improves. daily weights. daily check of kidney function. 4- Sinus tachycardia: EKG showed NSR tachycardia. probably 2/2 PNA and CHF. Home dose of atenolol was started on 04/11. Will decreased to 12.5mg PO ON 04/15/20 5- Vertigo and dizziness: Meclizine 12.5mg PO as needed 6- Syncope on 04/12 - resolved- : probably 2/2 cardiac event, NSTEMI, or dehydration from diuresis. continue to hold on diuretics. and continue to monitor. Dispo: criminal justice social worker, PT and OT eval for need for placement, DMEs and medical assistance once stable .
[2020-04-14] MEDS: atorvaSTATin 10 MG Tab PO SCH (20:00)
[2020-04-15] MEDS ORDERED: Meclizine 12.5 MG Tab PO PRN (08:00)
[2020-04-15] MEDS: Tiotropium Inhaler 18 MCG Inhalation Powder Cap Kit of 5 INH SCH (08:44)
[2020-04-15] MEDS: Aspirin 81 MG Tab.Chew PO SCH (08:44)
[2020-04-15] MEDS: Pantoprazole 40 MG Tab.CR PO SCH (08:44)
[2020-04-15] MEDS: Nystatin Topical Powder 15 GM Bottle TOP SCH ×2 (08:44→19:44)
[2020-04-15] MEDS: Acetaminophen 650 MG Tab.ER PO PRN ×2 (08:44→19:44)
[2020-04-15] MEDS: Atenolol 25 MG Tab PO SCH (08:48)
--- NOTE | 2020-04-15 11:40 | PCM.PN ---
- General Info Date of Service: 04/15/20 Admission Dx/Problem (Free Text): pt admitted for weakness, dehydration, pneumonia, CHF exacerbation Functional Status: Reports: Incentive Spirometry - Review of Systems General: Reports: No Symptoms HEENT: Reports: No Symptoms Pulmonary: Reports: Shortness of Breath (on ambulation) Cardiovascular: Reports: Dyspnea on Exertion. Denies: Chest Pain Gastrointestinal: Reports: No Symptoms Musculoskeletal: Reports: No Symptoms Skin: Reports: No Symptoms Neurological: Reports: No Symptoms - Patient Data Vitals - Most Recent: Last Vital Signs Temp 36.3 C 04/15/20 08:00 Pulse 77 04/15/20 08:48 Resp 18 04/15/20 08:00 BP 127/58 L 04/15/20 08:48 Pulse Ox 94 L 04/15/20 08:00 Weight - Most Recent: 77.678 kg I&O - Last 24 Hours: Intake & Output 04/14/20 04/15/20 04/15/20 22:59 06:59 14:59 Intake Total 720 150 Output Total 500 700 Balance 220 -550 Med Orders - Current: Current Medications Acetaminophen (Tylenol Arthritis Pain) 1,300 mg PO TID PRN PRN Reason: Pain Last Admin: 04/15/20 08:44 Dose: 1,300 mg Documented by: Albuterol (Proventil Neb Soln) 2.5 mg NEB Q4H PRN PRN Reason: short of breath Last Admin: 04/11/20 08:48 Dose: 2.5 mg Documented by: Aspirin (Aspirin) 81 mg PO DAILY [facility] Last Admin: 04/15/20 08:44 Dose: 81 mg Documented by: Atenolol (Tenormin) 12.5 mg PO DAILY [facility] Last Admin: 04/15/20 08:48 Dose: 12.5 mg Documented by: Atorvastatin Calcium (Lipitor) 10 mg PO BEDTIME [facility] Last Admin: 04/14/20 20:00 Dose: 10 mg Documented by: Calamine/Phenol (Calmoseptine) 0 gm TOP QID PRN PRN Reason: Rash Last Admin: 04/08/20 10:12 Dose: 1 applic Documented by: Levofloxacin (Levaquin) 750 mg PO Q48H [facility] Last Admin: 04/14/20 08:16 Dose: 750 mg Documented by: Meclizine HCl (Antivert) 12.5 mg PO DAILY PRN PRN Reason: Dizziness Nystatin (Nystop) 1 gm TOP BID [facility] Last Admin: 04/15/20 08:44 Dose: 1 applic Documented by: Ondansetron HCl (Zofran) 4 mg IVPUSH Q6H PRN PRN Reason: Nausea/Vomiting Last Admin: 04/12/20 09:54 Dose: 4 mg Documented by: Pantoprazole Sodium (Protonix) 40 mg PO ACBREAKFAST [facility] Last Admin: 04/15/20 08:44 Dose: 40 mg Documented by: Sodium Chloride (Saline Flush) 10 ml FLUSH ASDIRECTED PRN PRN Reason: Keep Vein Open Last Admin: 04/11/20 19:42 Dose: 10 ml Documented by: Tiotropium [place] (Spiriva Handihaler) 18 mcg INH DAILY [facility] Last Admin: 04/15/20 08:44 Dose: 1 puff Documented by: Trolamine Salicylate (Aspercreme 10%) 0 gm TOP Q1H PRN PRN Reason: Other Last Admin: 04/08/20 14:13 Dose: 1 applic Documented by: Discontinued Medications Acetaminophen (Tylenol Arthritis Pain) 1,300 mg PO TID [facility] Last Admin: 04/08/20 18:58 Dose: Not Given Documented by: Albuterol/Ipratropium (Duoneb 3.0-0.5 Mg/3 Ml) Confirm Administered Dose 3 ml .ROUTE .STK-MED ONE Stop: 04/07/20 19:05 Last Admin: 04/07/20 19:30 Dose: Not Given Documented by: Albuterol/Ipratropium (Duoneb 3.0-0.5 Mg/3 Ml) 3 ml NEB Q2H ONE Stop: 04/07/20 19:01 Last Admin: 04/07/20 19:00 Dose: 3 ml Documented by: Atenolol (Tenormin) 25 mg PO DAILY [facility] Last Admin: 04/14/20 08:16 Dose: 25 mg Documented by: Furosemide (Lasix) 20 mg IVPUSH ONETIME ONE Stop: 04/08/20 16:11 Last Admin: 04/08/20 16:40 Dose: 20 mg Documented by: Furosemide (Lasix) 20 mg PO ONETIME ONE Stop: 04/10/20 12:24 Last Admin: 04/10/20 13:40 Dose: 20 mg Documented by: Furosemide (Lasix) 40 mg IVPUSH NOW ONE Stop: 04/10/20 16:21 Last Admin: 04/10/20 16:31 Dose: 40 mg Documented by: Furosemide (Lasix) 20 mg IVPUSH BIDDIURETIC [facility] Last Admin: 04/11/20 07:43 Dose: 20 mg Documented by: Furosemide (Lasix) 40 mg PO BID [facility] Furosemide (Lasix) 40 mg PO BID@0800,1400 [facility] Last Admin: 04/12/20 13:41 Dose: Not Given Documented by: Sodium Chloride (Normal Saline) 1,000 mls @ 75 mls/hr IV ASDIRECTED [facility] Last Admin: 04/08/20 10:08 Dose: 100 mls/hr Documented by: Levofloxacin/Dextrose 750 mg/ (Levofloxacin/Dextrose) 300 mls @ 100 mls/hr IV Q24H [facility] Stop: 04/12/20 09:00 Last Admin: 04/08/20 10:10 Dose: 100 mls/hr Documented by: Sodium Chloride (Normal Saline) 500 mls @ 100 mls/hr IV .BOLUS ONE Stop: 04/08/20 13:44 Last Admin: 04/08/20 09:10 Dose: 500 mls/hr Documented by: Levofloxacin/Dextrose (Levaquin In D5w 750 Mg/150 Ml) Confirm Administered Dose 150 mls @ as directed IV .STK-MED ONE Stop: 04/08/20 09:54 Last Admin: 04/08/20 10:10 Dose: Not Given Documented by: Sodium Chloride (Normal Saline) 1,000 mls @ 75 mls/hr IV ASDIRECTED [facility] Last Admin: 04/08/20 11:40 Dose: 75 mls/hr Documented by: Levofloxacin/Dextrose 750 mg/ (Levofloxacin/Dextrose) 300 mls @ 100 mls/hr IV Q48H [facility] Stop: 04/12/20 09:00 Loperamide HCl (Imodium) 4 mg PO ONETIME ONE Stop: 04/08/20 08:49 Last Admin: 04/08/20 09:17 Dose: 4 mg Documented by: Magnesium Oxide (Magnesium Oxide) 400 mg PO ONETIME ONE Stop: 04/11/20 11:20 Last Admin: 04/11/20 14:18 Dose: 400 mg Documented by: Magnesium Oxide (Magnesium Oxide) Confirm Administered Dose 400 mg .ROUTE .STK- MED ONE Stop: 04/11/20 14:19 Last Admin: 04/11/20 14:23 Dose: Not Given Documented by: Meclizine HCl (Antivert) 12.5 mg PO ONETIME ONE Stop: 04/11/20 09:46 Last Admin: 04/11/20 10:41 Dose: 12.5 mg Documented by: Meclizine HCl (Antivert) 12.5 mg PO DAILY PRN PRN Reason: Dizziness Last Admin: 04/14/20 10:20 Dose: 12.5 mg Documented by: Meclizine HCl (Antivert) Confirm Administered Dose 25 mg .ROUTE .STK-MED ONE Stop: 04/15/20 08:44 Last Admin: 04/15/20 11:02 Dose: Not Given Documented by: Ondansetron HCl (Zofran) Confirm Administered Dose 4 mg .ROUTE .STK-MED ONE Stop: 04/07/20 19:13 Last Admin: 04/07/20 19:05 Dose: Not Given Documented by: - Exam Quality Assessment: Supplemental Oxygen General: Alert, Oriented, Cooperative, No Acute Distress HEENT: Pupils Equal, Pupils Reactive, EOMI Lungs: Clear to Auscultation, Normal Respiratory Effort Cardiovascular: Regular Rate, Irregular Rhythm Back Exam: Normal Inspection, Full Range of Motion Extremities: Normal Inspection, Normal Range of Motion. No: Pedal Edema Neurological: No New Focal Deficit Psy/Mental Status: Alert, Normal Affect Sepsis Event Note - Evaluation Sepsis Screening Result: No Definite Risk - Focused Exam Vital Signs: Vital Signs Temp Pulse Pulse Resp BP BP BP 04/15/20 08:48 77 127/58 L 04/15/20 08:00 36.3 C 77 18 127/58 L 04/15/20 05:09 36.6 C 62 18 108/55 L 04/15/20 02:00 71 18 Pulse Ox 04/15/20 08:48 04/15/20 08:00 94 L 04/15/20 05:09 90 L 04/15/20 02:00 - Problem List & Annotations (1) Tachycardia SNOMED Code(s): 9603784 Code(s): R00.0 - TACHYCARDIA, UNSPECIFIED Status: Acute Priority: Medium Current Visit: Yes (2) Acute respiratory failure with hypoxia SNOMED Code(s): 29465291, 078213902 Code(s): J96.01 - ACUTE RESPIRATORY FAILURE WITH HYPOXIA Status: Acute Priority: High Current Visit: Yes (3) Pneumonia SNOMED Code(s): 239313838 Code(s): J18.9 - PNEUMONIA, UNSPECIFIED ORGANISM Status: Acute Priority: High Current Visit: Yes Qualifiers: Pneumonia type: due to unspecified organism Laterality: right Lung location: lower lobe of lung Qualified Code(s): J18.9 - Pneumonia, unspecified organism (4) Congestive heart failure SNOMED Code(s): 61263999 Code(s): I50.9 - HEART FAILURE, UNSPECIFIED Status: Acute Priority: Medium Current Visit: No Onset Date: ~06/22/17 Qualifiers: Heart failure type: systolic Heart failure chronicity: acute on chronic Qualified Code(s): I50.23 - Acute on chronic systolic (congestive) heart failure Annotation/Comment:: 06/22/17 - 1. Congestive heart failure, 2. Weakness, 3. Mild dehydration (5) Syncope and collapse SNOMED Code(s): 442320892 Code(s): R55 - SYNCOPE AND COLLAPSE Status: Acute Priority: Medium Current Visit: Yes (6) LUZ MARIA (acute kidney injury) SNOMED Code(s): 19399345, 07256644 Code(s): N17.9 - ACUTE KIDNEY FAILURE, UNSPECIFIED Status: Acute Priority: Medium Current Visit: Yes - Problem List Review Problem List Initiated/Reviewed/Updated: Yes - My Orders Last 24 Hours: My Active Orders 04/15/20 08:00 Meclizine [Antivert] 12.5 mg PO DAILY PRN atenoloL [Tenormin] 12.5 mg PO DAILY - Plan Plan:: 1- PNA: continue Levaquin 750 mg PO q 36-48 hrs due to CKD for 5 doses. Resolv ing. 2- Acute Respiratory failure with Acute hypoxia: secondary to pneumonia and CHF. O2 Supply to keep SpO2 >94%. diuretics were started on 04/09 but held off on 04/12 due to an episode of hypotension and syncope. albuterol nebs PRN. incentive spirometry. She is on 4 lit of O2 at home. 3- Acute on Chronic CHF: she does need diuretics but holding on this till vitals stabilize and Cr/GFR improves. daily weights. 172.4lb today. daily check of kidney function. 4- Sinus tachycardia: EKG showed NSR tachycardia. probably 2/2 PNA and CHF. Home dose of atenolol was started on 04/11. Will decreased to 12.5mg PO ON 04/15/20 5- Vertigo and dizziness: Meclizine 12.5mg PO as needed 6- Syncope on 04/12 - resolved- : probably 2/2 cardiac event, NSTEMI, or dehydration from diuresis. continue to hold on diuretics. and continue to monitor. 7- Hypotension: 2/2 possible a cardiac event. Stabilized with cautious hydration and BP meds adjustment. 8- Deconditioning: due to above medical problems and morbid obesity. Requires additional nurse care assistance. 9- Legal Blind: natural tear eye drops as needed Dispo: social staff worker, PT and OT eval for need for placement, DMEs and medical assistance once stable .
[2020-04-15] MEDS ORDERED: Fluticasone Propionate Nasal Spray 16 GM Bottle ONE (11:50)
[2020-04-15] MEDS ORDERED: Loratadine 5 MG/5 ML Soln ML (120 ML Bottle) PO SCH (12:00)
[2020-04-15] MEDS: Fluticasone Propionate Nasal Spray 16 GM Bottle NASBOTH SCH (12:30)
[2020-04-15] MEDS: Loratadine 10 MG Tab PO SCH (15:45)
[2020-04-15] MEDS: atorvaSTATin 10 MG Tab PO SCH (19:44)
[2020-04-16] MEDS: Loratadine 10 MG Tab PO SCH (08:43)
[2020-04-16] MEDS: Fluticasone Propionate Nasal Spray 16 GM Bottle NASBOTH SCH (08:43)
[2020-04-16] MEDS: Pantoprazole 40 MG Tab.CR PO SCH (08:43)
[2020-04-16] MEDS: Aspirin 81 MG Tab.Chew PO SCH (08:43)
[2020-04-16] MEDS: Atenolol 25 MG Tab PO SCH (08:44)
[2020-04-16] MEDS: Nystatin Topical Powder 15 GM Bottle TOP SCH (08:44)
[2020-04-16] MEDS: Tiotropium Inhaler 18 MCG Inhalation Powder Cap Kit of 5 INH SCH (08:44)
[2020-04-16 08:47] VITALS: BP 112/66; PULSE 77
--- NOTE | 2020-04-16 12:47 | PCM.DCSUM1 ---
Discharge Summary - Hospital Course Diagnosis: Stroke: No - Discharge Data Discharge Date: 04/16/20 Discharge Disposition: DC/Tfer W/I Hosp To Swing 61 Condition: Fair - Referral to Home Health Primary Care Physician: PCP None - Discharge Diagnosis/Problem(s) (1) Tachycardia SNOMED Code(s): 6143643 ICD Code: R00.0 - TACHYCARDIA, UNSPECIFIED Status: Acute Priority: Medium (2) Acute respiratory failure with hypoxia SNOMED Code(s): 08327888, 908585908 ICD Code: J96.01 - ACUTE RESPIRATORY FAILURE WITH HYPOXIA Status: Acute Priority: High (3) Pneumonia SNOMED Code(s): 506722963 ICD Code: J18.9 - PNEUMONIA, UNSPECIFIED ORGANISM Status: Acute Priority: High Qualifiers: Pneumonia type: due to unspecified organism Laterality: right Lung location: lower lobe of lung Qualified Code(s): J18.9 - Pneumonia, unspecified organism (4) Congestive heart failure SNOMED Code(s): 70333391 ICD Code: I50.9 - HEART FAILURE, UNSPECIFIED Status: Acute Priority: Medium Onset Date: ~06/22/17 Problem Details: 06/22/17 - 1. Congestive heart failure, 2. Weakness, 3. Mild dehydration Qualifiers: Heart failure type: systolic Heart failure chronicity: acute on chronic Qualified Code(s): I50.23 - Acute on chronic systolic (congestive) heart failure (5) Syncope and collapse SNOMED Code(s): 150260209 ICD Code: R55 - SYNCOPE AND COLLAPSE Status: Acute Priority: Medium (6) LUZ MARIA (acute kidney injury) SNOMED Code(s): 97900468, 62571102 ICD Code: N17.9 - ACUTE KIDNEY FAILURE, UNSPECIFIED Status: Acute Priority: Medium - Patient Summary/Data Consults: Consultations 04/10/20 16:45 OT Evaluation and Treatment [CONS] Routine Please Evaluate and Treat. OT Reason for Consult: Discharge Planning This query below is only for informational purposes and is not editable. Admission Diagnosis/Problem: Pneumonia PT Evaluation and Treatment [CONS] Routine Please Evaluate and Treat. PT Reason for Consult: Strengthening This query below is only for informational purposes and is not editable. Admission Diagnosis/Problem: Pneumonia - Patient Instructions Diet: Heart Healthy Diet, Low Sodium Fluid Restriction: 1500 mL Activity: As Tolerated, No Strenuous Activities Driving: Do Not Drive Showering/Bathing: May Shower - Discharge Plan *PRESCRIPTION DRUG MONITORING PROGRAM REVIEWED*: Not Applicable *COPY OF PRESCRIPTION DRUG MONITORING REPORT IN PATIENT QUINTON: No Prescriptions/Med Rec: Fluticasone/Salmeterol [Advair 100-50] 1 puff IH BID 30 Days #1 diskus Furosemide [Lasix] 20 mg PO DAILY #30 tab levoFLOXacin [Levaquin] 750 mg PO Q48H #3 tablet Tiotropium [Spiriva HandiHaler] 18 mcg INH DAILY #30 cap Home Medications: Home Meds Acetaminophen [Tylenol Arthritis] 2 tab PO TID 04/19/16 [History] Aspirin [Kylie Chewable Aspirin] 81 mg PO DAILY 04/19/16 [History] atenoloL [Tenormin] 25 mg PO DAILY 04/19/16 [History] Omeprazole 20 mg PO DAILY 12/15/18 [History] atorvaSTATin [Lipitor] 10 mg PO BEDTIME 04/08/20 [History] Fluticasone/Salmeterol [Advair 100-50] 1 puff IH BID 30 Days #1 diskus 04/10/20 [Rx] Furosemide [Lasix] 20 mg PO DAILY #30 tab 04/10/20 [Rx] Tiotropium [Spiriva HandiHaler] 18 mcg INH DAILY #30 cap 04/10/20 [Rx] levoFLOXacin [Levaquin] 750 mg PO Q48H #3 tablet 04/10/20 [Rx] Oxygen Therapy Mode: Nasal Cannula Oxygen Flow Rate (L/min): 92 Patient Handouts: Furosemide tablets, Levofloxacin tablets - Discharge Summary/Plan Comment DC Time >30 min.: Yes Discharge Summary/Plan Comment: patient was initially admitted for treatment of pneumonia and CHF. h/o HTN, CHF and severe COPD. Requiring 4lit of O2 at home. Patient was started on levaquin and diuresis. Was COVID negative. She also went aggressive pulm toilet therapy. She responded well to her therapy. Diuretics were put on hold temp after an episode of syncope and hypotension. Responded well to 500 ml of IVF. Patient didn't receive diuretics since the 04/14 and luckily hasn't been gaining any weight. She is still on atenolol which is her home meds. The dose was decreased by half. Patients has responded well to therapy. Reports her breathing has improved and been using her incentive spirometry. Was switched to swing bed to continue her rehab under close observation - General Info Date of Service: 04/16/20 Admission Dx/Problem (Free Text: pt admitted for weakness, dehydration, pneumonia, CHF exacerbation Subjective Update: patient reports she is feeling better. her SOB is improving Sleeping better and eating well/ No CP, but still gets dizzy spell in the morning, for which meclizine helps a lot. No change in weight still requiring 4-5 lit O2 by [place] Functional Status: Reports: Pain Controlled, Tolerating Diet, New Symptoms, Incentive Spirometry - Review of Systems General: Reports: No Symptoms HEENT: Reports: No Symptoms Pulmonary: Reports: Shortness of Breath Cardiovascular: Reports: Dyspnea on Exertion, Edema Gastrointestinal: Reports: No Symptoms Genitourinary: Reports: No Symptoms Musculoskeletal: Reports: No Symptoms Skin: Reports: No Symptoms Neurological: Reports: No Symptoms - Patient Data Vitals - Most Recent: Last Vital Signs Temp 36.7 C 04/16/20 08:00 Pulse 77 04/16/20 08:44 Resp 16 04/16/20 08:00 BP 112/66 04/16/20 08:44 Pulse Ox 95 04/16/20 08:00 Weight - Most Recent: 78.199 kg I&O - Last 24 hours: Intake & Output 04/15/20 04/16/20 04/16/20 22:59 06:59 14:59 Intake Total 450 200 Output Total 300 750 Balance 150 -550 MEIR Results - Last 24 hrs: Microbiology 04/07/20 18:34 Salmonella/Shigella Screen - Final Rectum Campylobacter Culture - Final Escherichia coli Shiga Toxins EIA - Final Med Orders - Current: Current Medications Acetaminophen (Tylenol Arthritis Pain) 1,300 mg PO TID PRN PRN Reason: Pain Last Admin: 04/15/20 19:44 Dose: 1,300 mg Documented by: Albuterol (Proventil Neb Soln) 2.5 mg NEB Q4H PRN PRN Reason: short of breath Last Admin: 04/11/20 08:48 Dose: 2.5 mg Documented by: Aspirin (Aspirin) 81 mg PO DAILY [facility] Last Admin: 04/16/20 08:43 Dose: 81 mg Documented by: Atenolol (Tenormin) 6.25 mg PO DAILY [facility] Atorvastatin Calcium (Lipitor) 10 mg PO BEDTIME [facility] Last Admin: 04/15/20 19:44 Dose: 10 mg Documented by: Calamine/Phenol (Calmoseptine) 0 gm TOP QID PRN PRN Reason: Rash Last Admin: 04/08/20 10:12 Dose: 1 applic Documented by: Fluticasone Propionate (Flonase) 1 gm NASBOTH DAILY [facility] Last Admin: 04/16/20 08:43 Dose: 1 applic Documented by: Levofloxacin (Levaquin) 750 mg PO Q48H [facility] Last Admin: 04/14/20 08:16 Dose: 750 mg Documented by: Loratadine (Claritin) 5 mg PO DAILY [facility] Last Admin: 04/16/20 08:43 Dose: 5 mg Documented by: Meclizine HCl (Antivert) 12.5 mg PO DAILY PRN PRN Reason: Dizziness Nystatin (Nystop) 1 gm TOP BID [facility] Last Admin: 04/16/20 08:44 Dose: 1 applic Documented by: Ondansetron HCl (Zofran) 4 mg IVPUSH Q6H PRN PRN Reason: Nausea/Vomiting Last Admin: 04/12/20 09:54 Dose: 4 mg Documented by: Pantoprazole Sodium (Protonix) 40 mg PO ACBREAKFAST [facility] Last Admin: 04/16/20 08:43 Dose: 40 mg Documented by: Sodium Chloride (Saline Flush) 10 ml FLUSH ASDIRECTED PRN PRN Reason: Keep Vein Open Last Admin: 04/11/20 19:42 Dose: 10 ml Documented by: Tiotropium [place] (Spiriva Handihaler) 18 mcg INH DAILY [facility] Last Admin: 04/16/20 08:44 Dose: 1 puff Documented by: Trolamine Salicylate (Aspercreme 10%) 0 gm TOP Q1H PRN PRN Reason: Other Last Admin: 04/08/20 14:13 Dose: 1 applic Documented by: Discontinued Medications Acetaminophen (Tylenol Arthritis Pain) 1,300 mg PO TID [facility] Last Admin: 04/08/20 18:58 Dose: Not Given Documented by: Albuterol/Ipratropium (Duoneb 3.0-0.5 Mg/3 Ml) Confirm Administered Dose 3 ml .ROUTE .[facility]-MED ONE Stop: 04/07/20 19:05 Last Admin: 04/07/20 19:30 Dose: Not Given Documented by: Albuterol/Ipratropium (Duoneb 3.0-0.5 Mg/3 Ml) 3 ml NEB Q2H ONE Stop: 04/07/20 19:01 Last Admin: 04/07/20 19:00 Dose: 3 ml Documented by: Atenolol (Tenormin) 25 mg PO DAILY [facility] Last Admin: 04/14/20 08:16 Dose: 25 mg Documented by: Atenolol (Tenormin) 12.5 mg PO DAILY [facility] Last Admin: 04/16/20 08:44 Dose: 12.5 mg Documented by: Fluticasone Propionate (Flonase) Confirm Administered Dose 16 gm .ROUTE .STK-MED ONE Stop: 04/15/20 11:51 Last Admin: 04/15/20 19:22 Dose: Not Given Documented by: Furosemide (Lasix) 20 mg IVPUSH ONETIME ONE Stop: 04/08/20 16:11 Last Admin: 04/08/20 16:40 Dose: 20 mg Documented by: Furosemide (Lasix) 20 mg PO ONETIME ONE Stop: 04/10/20 12:24 Last Admin: 04/10/20 13:40 Dose: 20 mg Documented by: Furosemide (Lasix) 40 mg IVPUSH NOW ONE Stop: 04/10/20 16:21 Last Admin: 04/10/20 16:31 Dose: 40 mg Documented by: Furosemide (Lasix) 20 mg IVPUSH BIDDIURETIC [facility] Last Admin: 04/11/20 07:43 Dose: 20 mg Documented by: Furosemide (Lasix) 40 mg PO BID [facility] Furosemide (Lasix) 40 mg PO BID@0800,1400 [facility] Last Admin: 04/12/20 13:41 Dose: Not Given Documented by: Sodium Chloride (Normal Saline) 1,000 mls @ 75 mls/hr IV ASDIRECTED [facility] Last Admin: 04/08/20 10:08 Dose: 100 mls/hr Documented by: Levofloxacin/Dextrose 750 mg/ (Levofloxacin/Dextrose) 300 mls @ 100 mls/hr IV Q24H [facility] Stop: 04/12/20 09:00 Last Admin: 04/08/20 10:10 Dose: 100 mls/hr Documented by: Sodium Chloride (Normal Saline) 500 mls @ 100 mls/hr IV .BOLUS ONE Stop: 04/08/20 13:44 Last Admin: 04/08/20 09:10 Dose: 500 mls/hr Documented by: Levofloxacin/Dextrose (Levaquin In D5w 750 Mg/150 Ml) Confirm Administered Dose 150 mls @ as directed IV .STK-MED ONE Stop: 04/08/20 09:54 Last Admin: 04/08/20 10:10 Dose: Not Given Documented by: Sodium Chloride (Normal Saline) 1,000 mls @ 75 mls/hr IV ASDIRECTED [facility] Last Admin: 04/08/20 11:40 Dose: 75 mls/hr Documented by: Levofloxacin/Dextrose 750 mg/ (Levofloxacin/Dextrose) 300 mls @ 100 mls/hr IV Q48H [facility] Stop: 04/12/20 09:00 Loperamide HCl (Imodium) 4 mg PO ONETIME ONE Stop: 04/08/20 08:49 Last Admin: 04/08/20 09:17 Dose: 4 mg Documented by: Loratadine (Claritin) 5 mg PO DAILY [facility] Last Admin: 04/15/20 19:22 Dose: Not Given Documented by: Magnesium Oxide (Magnesium Oxide) 400 mg PO ONETIME ONE Stop: 04/11/20 11:20 Last Admin: 04/11/20 14:18 Dose: 400 mg Documented by: Magnesium Oxide (Magnesium Oxide) Confirm Administered Dose 400 mg .ROUTE .STK- MED ONE Stop: 04/11/20 14:19 Last Admin: 04/11/20 14:23 Dose: Not Given Documented by: Meclizine HCl (Antivert) 12.5 mg PO ONETIME ONE Stop: 04/11/20 09:46 Last Admin: 04/11/20 10:41 Dose: 12.5 mg Documented by: Meclizine HCl (Antivert) 12.5 mg PO DAILY PRN PRN Reason: Dizziness Last Admin: 04/14/20 10:20 Dose: 12.5 mg Documented by: Meclizine HCl (Antivert) Confirm Administered Dose 25 mg .ROUTE .STK-MED ONE Stop: 04/15/20 08:44 Last Admin: 04/15/20 11:02 Dose: Not Given Documented by: Ondansetron HCl (Zofran) Confirm Administered Dose 4 mg .ROUTE .STK-MED ONE Stop: 04/07/20 19:13 Last Admin: 04/07/20 19:05 Dose: Not Given Documented by: - Exam Quality Assessment: Reports: Supplemental Oxygen General: Reports: Alert, Oriented, Cooperative HEENT: Reports: Pupils Equal, Pupils Reactive Lungs: Reports: Clear to Auscultation, Normal Respiratory Effort Cardiovascular: Reports: Regular Rate, Irregular Rhythm GI/Abdominal Exam: Normal Bowel Sounds, Soft, Non-Tender Extremities: Normal Inspection Neurological: Reports: No New Focal Deficit Psy/Mental Status: Reports: Alert, Normal Affect, Normal Mood
[2020-04-16] MEDS: Levofloxacin 750 MG Tab PO SCH (13:27)
[2020-04-17] MEDS ORDERED: Atenolol 25 MG Tab PO SCH (08:00)
== END 2020-04-16 12:44 | disposition swing bed (61) | DRG 291 ==
LOC: LB.ED 16:02 → UNDOADMOB 19:00 → LB.MS 19:00 → OBSVTOIN 19:00 → INTOOBSV 19:00 → LB.MS 04-08 06:42 → OBSVTOIN 04-09 10:46 → UNDOADMOB 04-09 10:46 → INTOOBSV 04-09 10:46 → LB.MS 04-09 10:46
PROVIDERS: ADMIT Surgery; ATTEND Surgery
DX: I11.0 Hypertensive heart disease with heart failure (principal); J18.9 Pneumonia, unspecified organism; J96.01 Acute respiratory failure with hypoxia; R53.1 Weakness; I50.9 Heart failure, unspecified; N17.9 Acute kidney failure, unspecified; J44.0 Chronic obstructive pulmonary disease with (acute) lower respiratory infection; Z20.822 Contact with and (suspected) exposure to COVID-19; Z88.0 Allergy status to penicillin; Z88.1 Allergy status to other antibiotic agents; Z91.048 Other nonmedicinal substance allergy status; J44.9 Chronic obstructive pulmonary disease, unspecified; E86.0 Dehydration; K52.9 Noninfective gastroenteritis and colitis, unspecified; I50.23 Acute on chronic systolic (congestive) heart failure; I95.9 Hypotension, unspecified; H54.7 Unspecified visual loss; Z79.899 Other long term (current) drug therapy; Z79.82 Long term (current) use of aspirin; Z91.09 Other allergy status, other than to drugs and biological substances
CPT/HCPCS: 36415; 71045; 74176; 80048; 80053; 81003; 83735; 83880; 84100; 84484; 85025; 85027; 87045; 87046; 87427; 87493; 93005; 97110-GP; 97161-GP; 97165-GO; 97530-GP; A0425; A0429; A9270-GY; J1940; J1956; J2405; J7030; J7040; J7620-GY; U0002

== ENCOUNTER 2020-04-16 12:41 | Inpatient (IN) | payer MEDICARE, OTHER ==
[2020-04-16] MEDS ORDERED: Levofloxacin 750 MG Tab PO SCH (13:27)
[2020-04-16] MEDS ORDERED: Ondansetron 4 MG/2 ML SDV IVPUSH PRN (14:12)
[2020-04-16] MEDS ORDERED: Trolamine Salicylate/Aloe Vera 10% Crm 85 GM Tube TOP PRN (14:12)
[2020-04-16] MEDS ORDERED: Menthol/Zinc Oxide Ointment 113 GM Tube TOP PRN (14:12)
[2020-04-16] MEDS ORDERED: Sodium Chloride 0.9% 10 ML Syringe FLUSH PRN ×2 (14:12)
[2020-04-16] MEDS: Heparin Sodium 5,000 Units/ML Vial SUBCUT SCH (15:09)
[2020-04-16] MEDS: Albuterol 0.083% 2.5 MG/3 ML Neb Soln NEB PRN ×2 (15:33→23:21)
[2020-04-16] MEDS: Acetaminophen 650 MG Tab.ER PO PRN (19:20)
[2020-04-16] MEDS: atorvaSTATin 10 MG Tab PO SCH (19:20)
[2020-04-16] MEDS: Nystatin Topical Powder 15 GM Bottle TOP SCH (19:21)
[2020-04-17] MEDS: Heparin Sodium 5,000 Units/ML Vial SUBCUT SCH ×3 (03:44→19:44)
[2020-04-17] MEDS: Aspirin 81 MG Tab.Chew PO SCH (08:17)
[2020-04-17] MEDS: Loratadine 10 MG Tab PO SCH (08:17)
[2020-04-17] MEDS: Fluticasone Propionate Nasal Spray 16 GM Bottle NASBOTH SCH (08:17)
[2020-04-17] MEDS: Pantoprazole 40 MG Tab.CR PO SCH (08:17)
[2020-04-17] MEDS: Nystatin Topical Powder 15 GM Bottle TOP SCH ×2 (08:18→20:00)
[2020-04-17] MEDS: Tiotropium Inhaler 18 MCG Inhalation Powder Cap Kit of 5 INH SCH (08:18)
[2020-04-17] MEDS: Atenolol 25 MG Tab PO SCH (08:20)
[2020-04-17] MEDS: Meclizine 12.5 MG Tab PO PRN (08:47)
[2020-04-17] MEDS: atorvaSTATin 10 MG Tab PO SCH (19:33)
[2020-04-17] MEDS: Acetaminophen 650 MG Tab.ER PO PRN (19:33)
[2020-04-18] MEDS: Aspirin 81 MG Tab.Chew PO SCH (08:27)
[2020-04-18] MEDS: Loratadine 10 MG Tab PO SCH (08:27)
[2020-04-18] MEDS: Levofloxacin 750 MG Tab PO SCH (08:28)
[2020-04-18] MEDS: Atenolol 25 MG Tab PO SCH (08:28)
[2020-04-18] MEDS: Pantoprazole 40 MG Tab.CR PO SCH (08:28)
[2020-04-18] MEDS: Heparin Sodium 5,000 Units/ML Vial SUBCUT SCH ×2 (08:34→20:25)
[2020-04-18] MEDS: Meclizine 12.5 MG Tab PO PRN (08:34)
[2020-04-18] MEDS: Fluticasone Propionate Nasal Spray 16 GM Bottle NASBOTH SCH (08:35)
[2020-04-18] MEDS: Tiotropium Inhaler 18 MCG Inhalation Powder Cap Kit of 5 INH SCH (08:36)
[2020-04-18] MEDS: Nystatin Topical Powder 15 GM Bottle TOP SCH ×2 (08:37→20:29)
[2020-04-18] MEDS ORDERED: Levofloxacin 750 MG Tab PO SCH (09:00)
[2020-04-18] MEDS: Acetaminophen 650 MG Tab.ER PO PRN ×2 (12:27→20:23)
[2020-04-18] MEDS: atorvaSTATin 10 MG Tab PO SCH (20:23)
[2020-04-19] MEDS: Pantoprazole 40 MG Tab.CR PO SCH (08:40)
[2020-04-19] MEDS: Loratadine 10 MG Tab PO SCH (08:40)
[2020-04-19] MEDS: Aspirin 81 MG Tab.Chew PO SCH (08:42)
[2020-04-19] MEDS: Fluticasone Propionate Nasal Spray 16 GM Bottle NASBOTH SCH (08:42)
[2020-04-19] MEDS: Heparin Sodium 5,000 Units/ML Vial SUBCUT SCH ×2 (08:43→19:37)
[2020-04-19] MEDS: Nystatin Topical Powder 15 GM Bottle TOP SCH ×2 (08:45→19:39)
[2020-04-19] MEDS: Tiotropium Inhaler 18 MCG Inhalation Powder Cap Kit of 5 INH SCH (08:45)
[2020-04-19] MEDS: Atenolol 25 MG Tab PO SCH (08:49)
[2020-04-19] MEDS: Acetaminophen 650 MG Tab.ER PO PRN (19:36)
[2020-04-19] MEDS: atorvaSTATin 10 MG Tab PO SCH ×2 (19:36→19:41)
[2020-04-19] MEDS: Levofloxacin 750 MG Tab PO SCH (19:37)
[2020-04-20] MEDS: Aspirin 81 MG Tab.Chew PO SCH (08:59)
[2020-04-20] MEDS: Loratadine 10 MG Tab PO SCH (08:59)
[2020-04-20] MEDS: Nystatin Topical Powder 15 GM Bottle TOP SCH ×2 (09:01→20:25)
[2020-04-20] MEDS: Fluticasone Propionate Nasal Spray 16 GM Bottle NASBOTH SCH (09:01)
[2020-04-20] MEDS: Atenolol 25 MG Tab PO SCH (09:02)
[2020-04-20] MEDS: Tiotropium Inhaler 18 MCG Inhalation Powder Cap Kit of 5 INH SCH (09:02)
[2020-04-20] MEDS: Heparin Sodium 5,000 Units/ML Vial SUBCUT SCH ×2 (09:29→20:17)
[2020-04-20] MEDS: Pantoprazole 40 MG Tab.CR PO SCH (09:32)
[2020-04-20] MEDS: Meclizine 12.5 MG Tab PO PRN (10:44)
[2020-04-20] MEDS: Acetaminophen 650 MG Tab.ER PO PRN ×2 (12:21→20:12)
[2020-04-20] MEDS ORDERED: Docusate Sodium 100 MG Cap PO ONE (17:36)
[2020-04-20] MEDS: atorvaSTATin 10 MG Tab PO SCH (20:12)
[2020-04-21] MEDS: Pantoprazole 40 MG Tab.CR PO SCH (06:29)
[2020-04-21] MEDS: Loratadine 10 MG Tab PO SCH (10:16)
[2020-04-21] MEDS: Tiotropium Inhaler 18 MCG Inhalation Powder Cap Kit of 5 INH SCH (10:16)
[2020-04-21] MEDS: Atenolol 25 MG Tab PO SCH (10:17)
[2020-04-21] MEDS: Aspirin 81 MG Tab.Chew PO SCH (10:17)
[2020-04-21] MEDS: Fluticasone Propionate Nasal Spray 16 GM Bottle NASBOTH SCH (10:17)
[2020-04-21] MEDS: Heparin Sodium 5,000 Units/ML Vial SUBCUT SCH ×2 (10:18→19:15)
[2020-04-21] MEDS: Nystatin Topical Powder 15 GM Bottle TOP SCH ×2 (10:25→19:14)
[2020-04-21] MEDS ORDERED: Magnesium Hydroxide 400 MG/5 ML Susp 30 ML Cup PO PRN (10:47)
[2020-04-21] MEDS ORDERED: Bisacodyl 10 MG Supp RECTAL ONE (13:44)
[2020-04-21] MEDS ORDERED: Bisacodyl 10 MG Supp ONE (13:48)
[2020-04-21] MEDS ORDERED: Sodium Phosphate,Monobasic/Sodium Phosphate,Dibasic Enema 133 ML Bottle RECTAL ONE (16:40)
[2020-04-21] MEDS: Acetaminophen 650 MG Tab.ER PO PRN (16:52)
[2020-04-21] MEDS ORDERED: Tuberculin, PPD 5 Units/0.1 ML 1 ML MDV IDERM ONE (17:52)
[2020-04-21] MEDS: atorvaSTATin 10 MG Tab PO SCH (19:14)
[2020-04-21] MEDS: Albuterol 0.083% 2.5 MG/3 ML Neb Soln NEB PRN (19:23)
[2020-04-22] MEDS: Acetaminophen 650 MG Tab.ER PO PRN ×2 (00:15→19:41)
[2020-04-22] MEDS: Atenolol 25 MG Tab PO SCH (08:54)
[2020-04-22] MEDS: Loratadine 10 MG Tab PO SCH (08:56)
[2020-04-22] MEDS: Polyethylene Glycol 3350 Powder 17 GM Packet PO SCH (08:56)
[2020-04-22] MEDS: Aspirin 81 MG Tab.Chew PO SCH (08:56)
[2020-04-22] MEDS: Tiotropium Inhaler 18 MCG Inhalation Powder Cap Kit of 5 INH SCH (08:57)
[2020-04-22] MEDS: Fluticasone Propionate Nasal Spray 16 GM Bottle NASBOTH SCH (08:57)
[2020-04-22] MEDS: Heparin Sodium 5,000 Units/ML Vial SUBCUT SCH ×2 (08:57→19:44)
[2020-04-22] MEDS: Pantoprazole 40 MG Tab.CR PO SCH (08:57)
[2020-04-22] MEDS: Nystatin Topical Powder 15 GM Bottle TOP SCH ×2 (09:00→19:52)
[2020-04-22] MEDS: atorvaSTATin 10 MG Tab PO SCH ×2 (19:41→19:57)
[2020-04-22] MEDS ORDERED: Nystatin Topical Powder 15 GM Bottle TOP PRN (19:54)
[2020-04-23] MEDS: Pantoprazole 40 MG Tab.CR PO SCH (06:24)
--- NOTE | 2020-04-23 08:20 | PCM.PN ---
- General Info Date of Service: 04/23/20 Subjective Update: Patient doing well and has no concerns. She denies any chest pain at this time. She has increased shortness of breath on exertion. She has been working with PT/OT as well. No issues at this time. Functional Status: Reports: Pain Controlled, Tolerating Diet, Ambulating - Review of Systems General: Reports: Weakness, Fatigue HEENT: Reports: No Symptoms Pulmonary: Reports: Shortness of Breath (Only on exertion) Cardiovascular: Reports: No Symptoms Gastrointestinal: Reports: No Symptoms Musculoskeletal: Reports: No Symptoms Neurological: Reports: Difficulty Walking, Weakness Psychiatric: Reports: No Symptoms - Patient Data Vitals - Most Recent: Last Vital Signs Temp 35.8 C L 04/22/20 10:00 Pulse 87 04/22/20 10:00 Resp 18 04/22/20 10:00 BP 114/54 L 04/22/20 10:00 Pulse Ox 95 04/22/20 10:00 Weight - Most Recent: 77.746 kg Med Orders - Current: Current Medications Acetaminophen (Tylenol Arthritis Pain) 1,300 mg PO TID PRN PRN Reason: Pain Last Admin: 04/22/20 19:41 Dose: 1,300 mg Documented by: Albuterol (Proventil Neb Soln) 2.5 mg NEB Q4H PRN PRN Reason: short of breath Last Admin: 04/21/20 19:23 Dose: 2.5 mg Documented by: Aspirin (Aspirin) 81 mg PO DAILY [facility] Last Admin: 04/22/20 08:56 Dose: 81 mg Documented by: Atenolol (Tenormin) 6.25 mg PO DAILY [facility] Last Admin: 04/22/20 08:54 Dose: Not Given Documented by: Atorvastatin Calcium (Lipitor) 10 mg PO Q48H [facility] Calamine/Phenol (Calmoseptine) 0 gm TOP QID PRN PRN Reason: Rash Last Admin: 04/22/20 00:14 Dose: 1 applic Documented by: Fluticasone Propionate (Flonase) 1 gm NASBOTH DAILY [facility] Last Admin: 04/22/20 08:57 Dose: 2 puff Documented by: Heparin Sodium (Porcine) (Heparin Sodium) 5,000 units SUBCUT BID [facility] Last Admin: 04/22/20 19:44 Dose: 5,000 units Documented by: Loratadine (Claritin) 5 mg PO DAILY [facility] Last Admin: 04/22/20 08:56 Dose: 5 mg Documented by: Magnesium Hydroxide (Milk Of Magnesia) 30 ml PO DAILY PRN PRN Reason: Constipation Last Admin: 04/21/20 16:52 Dose: 30 ml Documented by: Meclizine HCl (Antivert) 12.5 mg PO DAILY PRN PRN Reason: DIZZINESS Nystatin (Nystop) 1 gm TOP BID PRN PRN Reason: Rash Ondansetron HCl (Zofran) 4 mg IVPUSH Q6H PRN PRN Reason: Nausea/Vomiting Pantoprazole Sodium (Protonix) 40 mg PO ACBREAKFAST [facility] Last Admin: 04/23/20 06:24 Dose: 40 mg Documented by: Polyethylene Glycol (Miralax) 17 gm PO DAILY [facility] Last Admin: 04/22/20 08:56 Dose: 17 gm Documented by: Sodium Chloride (Saline Flush) 10 ml FLUSH ASDIRECTED PRN PRN Reason: Keep Vein Open Sodium Chloride (Saline Flush) 10 ml FLUSH ASDIRECTED PRN PRN Reason: Keep Vein Open Tiotropium [place] (Spiriva Handihaler) 18 mcg INH DAILY [facility] Last Admin: 04/22/20 08:57 Dose: 1 puff Documented by: Trolamine Salicylate (Aspercreme 10%) 1 gm TOP Q1H PRN PRN Reason: Other Discontinued Medications Atorvastatin Calcium (Lipitor) 10 mg PO BEDTIME [facility] Last Admin: 04/22/20 19:57 Dose: Not Given Documented by: Bisacodyl (Dulcolax) 10 mg RECTAL ONETIME ONE Stop: 04/21/20 13:45 Last Admin: 04/21/20 13:54 Dose: 10 mg Documented by: Bisacodyl (Dulcolax) Confirm Administered Dose 10 mg .ROUTE .STK-MED ONE Stop: 04/21/20 13:49 Last Admin: 04/21/20 13:54 Dose: Not Given Documented by: Docusate Sodium (Colace) 100 mg PO ONETIME ONE Stop: 04/20/20 17:37 Last Admin: 04/20/20 17:49 Dose: 100 mg Documented by: Heparin Sodium (Porcine) (Heparin Sodium) 5,000 units SUBCUT Q12H [facility] Last Admin: 04/17/20 03:44 Dose: Not Given Documented by: Levofloxacin (Levaquin) 750 mg PO Q48H [facility] Levofloxacin (Levaquin) 750 mg PO Q36H [facility] Stop: 04/18/20 01:28 Last Admin: 04/16/20 15:01 Dose: Not Given Documented by: Levofloxacin (Levaquin) 750 mg PO Q36H [facility] Stop: 04/19/20 20:01 Last Admin: 04/19/20 19:37 Dose: 750 mg Documented by: Meclizine HCl (Antivert) 12.5 mg PO DAILY PRN PRN Reason: Dizziness Last Admin: 04/20/20 10:44 Dose: 12.5 mg Documented by: Meclizine HCl (Antivert) Confirm Administered Dose 25 mg .ROUTE .STK-MED ONE Stop: 04/17/20 08:45 Last Admin: 04/17/20 18:58 Dose: Not Given Documented by: Meclizine HCl (Antivert) Confirm Administered Dose 25 mg .ROUTE .STK-MED ONE Stop: 04/18/20 08:35 Last Admin: 04/18/20 08:37 Dose: Not Given Documented by: Nystatin (Nystop) 1 gm TOP BID [facility] Last Admin: 04/22/20 19:52 Dose: Not Given Documented by: Sodium Biphosphate/Sodium Phosphate (Fleet Enema) 133 ml RECTAL ONETIME ONE Stop: 04/21/20 16:41 Last Admin: 04/21/20 17:01 Dose: 1 bottle Documented by: Tuberculin PPD (Aplisol) 5 unit IDERM ONETIME ONE Stop: 04/21/20 17:53 Last Admin: 04/21/20 18:40 Dose: 5 unit Documented by: - Exam General: Alert, Cooperative HEENT: Pupils Equal, Pupils Reactive, EOMI Neck: Supple Lungs: Clear to Auscultation, Normal Respiratory Effort Cardiovascular: Regular Rate, Regular Rhythm GI/Abdominal Exam: Normal Bowel Sounds Psy/Mental Status: Alert, Normal Affect, Normal Mood Sepsis Event Note - Evaluation Sepsis Screening Result: No Definite Risk - Problem List & Annotations (1) Acute respiratory failure with hypoxia SNOMED Code(s): 12532628, 880832674 Code(s): J96.01 - ACUTE RESPIRATORY FAILURE WITH HYPOXIA Status: Acute Priority: High Current Visit: No (2) Congestive heart failure SNOMED Code(s): 56490869 Code(s): I50.9 - HEART FAILURE, UNSPECIFIED Status: Acute Priority: Medium Current Visit: No Onset Date: ~06/22/17 Qualifiers: Annotation/Comment:: 06/22/17 - 1. Congestive heart failure, 2. Weakness, 3. Mild dehydration (3) Pneumonia SNOMED Code(s): 794491275 Code(s): J18.9 - PNEUMONIA, UNSPECIFIED ORGANISM Status: Acute Priority: High Current Visit: No Qualifiers: (4) Tachycardia SNOMED Code(s): 0819492 Code(s): R00.0 - TACHYCARDIA, UNSPECIFIED Status: Acute Priority: Medium Current Visit: No (5) Weakness SNOMED Code(s): 26183181 Code(s): R53.1 - WEAKNESS Status: Acute Current Visit: No Onset Date: ~06/22/17 Annotation/Comment:: 06/22/17 - 1. Congestive heart failure, 2. Weakness, 3. Mild dehydration - Problem List Review Problem List Initiated/Reviewed/Updated: Yes - Plan Plan:: Patient plan on discharge to Care center. Discharge planning today. No changes to care or medications at this time.
[2020-04-23] MEDS: Heparin Sodium 5,000 Units/ML Vial SUBCUT SCH (08:35)
[2020-04-23] MEDS: Fluticasone Propionate Nasal Spray 16 GM Bottle NASBOTH SCH (08:37)
[2020-04-23] MEDS: Tiotropium Inhaler 18 MCG Inhalation Powder Cap Kit of 5 INH SCH (08:37)
[2020-04-23] MEDS: Loratadine 10 MG Tab PO SCH (08:38)
[2020-04-23] MEDS: Aspirin 81 MG Tab.Chew PO SCH (08:38)
[2020-04-23] MEDS: Atenolol 25 MG Tab PO SCH (08:44)
[2020-04-23 08:45] VITALS: BP 116/55; PULSE 87
[2020-04-23] MEDS: Polyethylene Glycol 3350 Powder 17 GM Packet PO SCH (08:53)
[2020-04-23] MEDS: Acetaminophen 650 MG Tab.ER PO PRN (09:45)
[2020-04-23] MEDS ORDERED: atorvaSTATin 10 MG Tab PO SCH (20:00)
--- NOTE | 2020-04-24 08:07 | PCM.DCSUM1 ---
Discharge Summary - Discharge Data Discharge Date: 04/23/20 Discharge Disposition: DC/Tfer to [facility] Condition: Good - Referral to Home Health Primary Care Physician: PCP None - Discharge Diagnosis/Problem(s) (1) Acute respiratory failure with hypoxia SNOMED Code(s): 05020236, 810201557 ICD Code: J96.01 - ACUTE RESPIRATORY FAILURE WITH HYPOXIA Status: Acute Priority: High (2) Congestive heart failure SNOMED Code(s): 30213467 ICD Code: I50.9 - HEART FAILURE, UNSPECIFIED Status: Acute Priority: Medium Onset Date: ~06/22/17 Problem Details: 06/22/17 - 1. Congestive heart failure, 2. Weakness, 3. Mild dehydration Qualifiers: (3) Pneumonia SNOMED Code(s): 926212082 ICD Code: J18.9 - PNEUMONIA, UNSPECIFIED ORGANISM Status: Acute Priority: High Qualifiers: (4) Tachycardia SNOMED Code(s): 0747114 ICD Code: R00.0 - TACHYCARDIA, UNSPECIFIED Status: Acute Priority: Medium (5) Weakness SNOMED Code(s): 59470556 ICD Code: R53.1 - WEAKNESS Status: Acute Onset Date: ~06/22/17 Problem Details: 06/22/17 - 1. Congestive heart failure, 2. Weakness, 3. Mild dehydration - Patient Summary/Data Consults: Consultations 04/16/20 14:12 OT Evaluation and Treatment [CONS] Routine Please Evaluate and Treat. OT Reason for Consult: Discharge Planning This query below is only for informational purposes and is not editable. Admission Diagnosis/Problem: Pneumonia PT Evaluation and Treatment [CONS] Routine Please Evaluate and Treat. PT Reason for Consult: Strengthening This query below is only for informational purposes and is not editable. Admission Diagnosis/Problem: Pneumonia - Patient Instructions Activity: As Tolerated Driving: Do Not Drive - Discharge Plan Home Medications: Home Meds Acetaminophen [Tylenol Arthritis] 2 tab PO TID 04/19/16 [History] Aspirin [Kylie Chewable Aspirin] 81 mg PO DAILY 04/19/16 [History] atenoloL [Tenormin] 25 mg PO DAILY 04/19/16 [History] Omeprazole 20 mg PO DAILY 12/15/18 [History] atorvaSTATin [Lipitor] 10 mg PO BEDTIME 04/08/20 [History] Fluticasone/Salmeterol [Advair 100-50] 1 puff IH BID 30 Days #1 diskus 04/10/20 [Rx] Furosemide [Lasix] 20 mg PO DAILY #30 tab 04/10/20 [Rx] Tiotropium [Spiriva HandiHaler] 18 mcg INH DAILY #30 cap 04/10/20 [Rx] levoFLOXacin [Levaquin] 750 mg PO Q48H #3 tablet 04/10/20 [Rx] Patient Handouts: Fall Prevention in the Home, Adult, [id number] - Discharge Summary/Plan Comment DC Time >30 min.: No Discharge Summary/Plan Comment: Patient discharged to [facility] for rehabilitation and care. - Patient Data Vitals - Most Recent: Last Vital Signs Temp 36.6 C 04/23/20 10:00 Pulse 87 04/23/20 10:00 Resp 18 04/23/20 10:00 BP 116/55 L 04/23/20 10:00 Pulse Ox 98 04/23/20 10:00 Weight - Most Recent: 77.281 kg Lab Results - Last 24 hrs: Laboratory Results - last 24 hr 04/23/20 Range/Units 12:15 SARS-CoV-2 RNA (ELA) Negative (NEGATIVE) Med Orders - Current: Current Medications Discontinued Medications Acetaminophen (Tylenol Arthritis Pain) 1,300 mg PO TID PRN PRN Reason: Pain Last Admin: 04/23/20 09:45 Dose: 1,300 mg Documented by: Albuterol (Proventil Neb Soln) 2.5 mg NEB Q4H PRN PRN Reason: short of breath Last Admin: 04/21/20 19:23 Dose: 2.5 mg Documented by: Aspirin (Aspirin) 81 mg PO DAILY [facility] Last Admin: 04/23/20 08:38 Dose: 81 mg Documented by: Atenolol (Tenormin) 6.25 mg PO DAILY [facility] Last Admin: 04/23/20 08:44 Dose: 6.25 mg Documented by: Atorvastatin Calcium (Lipitor) 10 mg PO BEDTIME [facility] Last Admin: 04/22/20 19:57 Dose: Not Given Documented by: Atorvastatin Calcium (Lipitor) 10 mg PO Q48H [facility] Bisacodyl (Dulcolax) 10 mg RECTAL ONETIME ONE Stop: 04/21/20 13:45 Last Admin: 04/21/20 13:54 Dose: 10 mg Documented by: Bisacodyl (Dulcolax) Confirm Administered Dose 10 mg .ROUTE .STK-MED ONE Stop: 04/21/20 13:49 Last Admin: 04/21/20 13:54 Dose: Not Given Documented by: Calamine/Phenol (Calmoseptine) 0 gm TOP QID PRN PRN Reason: Rash Last Admin: 04/22/20 00:14 Dose: 1 applic Documented by: Docusate Sodium (Colace) 100 mg PO ONETIME ONE Stop: 04/20/20 17:37 Last Admin: 04/20/20 17:49 Dose: 100 mg Documented by: Fluticasone Propionate (Flonase) 1 gm NASBOTH DAILY [facility] Last Admin: 04/23/20 08:37 Dose: 2 spray Documented by: Heparin Sodium (Porcine) (Heparin Sodium) 5,000 units SUBCUT Q12H [facility] Last Admin: 04/17/20 03:44 Dose: Not Given Documented by: Heparin Sodium (Porcine) (Heparin Sodium) 5,000 units SUBCUT BID [facility] Last Admin: 04/23/20 08:35 Dose: 5,000 units Documented by: Levofloxacin (Levaquin) 750 mg PO Q48H [facility] Levofloxacin (Levaquin) 750 mg PO Q36H [facility] Stop: 04/18/20 01:28 Last Admin: 04/16/20 15:01 Dose: Not Given Documented by: Levofloxacin (Levaquin) 750 mg PO Q36H [facility] Stop: 04/19/20 20:01 Last Admin: 04/19/20 19:37 Dose: 750 mg Documented by: Loratadine (Claritin) 5 mg PO DAILY [facility] Last Admin: 04/23/20 08:38 Dose: 5 mg Documented by: Magnesium Hydroxide (Milk Of Magnesia) 30 ml PO DAILY PRN PRN Reason: Constipation Last Admin: 04/21/20 16:52 Dose: 30 ml Documented by: Meclizine HCl (Antivert) 12.5 mg PO DAILY PRN PRN Reason: Dizziness Last Admin: 04/20/20 10:44 Dose: 12.5 mg Documented by: Meclizine HCl (Antivert) Confirm Administered Dose 25 mg .ROUTE .STK-MED ONE Stop: 04/17/20 08:45 Last Admin: 04/17/20 18:58 Dose: Not Given Documented by: Meclizine HCl (Antivert) Confirm Administered Dose 25 mg .ROUTE .STK-MED ONE Stop: 04/18/20 08:35 Last Admin: 04/18/20 08:37 Dose: Not Given Documented by: Meclizine HCl (Antivert) 12.5 mg PO DAILY PRN PRN Reason: DIZZINESS Nystatin (Nystop) 1 gm TOP BID [facility] Last Admin: 04/22/20 19:52 Dose: Not Given Documented by: Nystatin (Nystop) 1 gm TOP BID PRN PRN Reason: Rash Ondansetron HCl (Zofran) 4 mg IVPUSH Q6H PRN PRN Reason: Nausea/Vomiting Pantoprazole Sodium (Protonix) 40 mg PO ACBREAKFAST [facility] Last Admin: 04/23/20 06:24 Dose: 40 mg Documented by: Polyethylene Glycol (Miralax) 17 gm PO DAILY [facility] Last Admin: 04/23/20 08:53 Dose: 17 gm Documented by: Sodium Biphosphate/Sodium Phosphate (Fleet Enema) 133 ml RECTAL ONETIME ONE Stop: 04/21/20 16:41 Last Admin: 04/21/20 17:01 Dose: 1 bottle Documented by: Sodium Chloride (Saline Flush) 10 ml FLUSH ASDIRECTED PRN PRN Reason: Keep Vein Open Sodium Chloride (Saline Flush) 10 ml FLUSH ASDIRECTED PRN PRN Reason: Keep Vein Open Tiotropium [place] (Spiriva Handihaler) 18 mcg INH DAILY [facility] Last Admin: 04/23/20 08:37 Dose: 1 puff Documented by: Trolamine Salicylate (Aspercreme 10%) 1 gm TOP Q1H PRN PRN Reason: Other Tuberculin PPD (Aplisol) 5 unit IDERM ONETIME ONE Stop: 04/21/20 17:53 Last Admin: 04/21/20 18:40 Dose: 5 unit Documented by:
== END 2020-04-23 13:50 | DRG 193 ==
LOC: LB.MS 12:41
PROVIDERS: ADMIT Surgery; ATTEND Surgery
DX: J18.9 Pneumonia, unspecified organism (principal); J96.01 Acute respiratory failure with hypoxia; I50.22 Chronic systolic (congestive) heart failure; I11.0 Hypertensive heart disease with heart failure; Z20.822 Contact with and (suspected) exposure to COVID-19; E86.0 Dehydration; Z79.82 Long term (current) use of aspirin; Z79.899 Other long term (current) drug therapy
CPT/HCPCS: 86580; 93005; 97110-GO; 97110-GP; 97530-GO; 97530-GP; 97535-GO; 99305; 99315; A9270-GY; J1644; U0002

== ENCOUNTER 2020-06-10 14:11 | Observation (INO) | payer MEDICARE, OTHER ==
[2020-06-10] MEDS ORDERED: Albuterol/Ipratropium 3.0-0.5 MG/3 ML Neb Soln NEB ONE (15:02)
[2020-06-10] MEDS ORDERED: Sodium Chloride 0.9% 50 ML SDV FLUSH ONE (15:25)
[2020-06-10] MEDS ORDERED: Iopamidol 612 MG/ML 100 ML Bottle IV SCH (15:30)
--- NOTE | 2020-06-10 15:31 | EDM.PDOC ---
ED HPI GENERAL MEDICAL PROBLEM - General Chief Complaint: Respiratory Problem Stated Complaint: shortness of breath Time Seen by Provider: 06/10/20 15:00 Source of Information: Reports: Patient History Limitations: Reports: No Limitations - History of Present Illness INITIAL COMMENTS - FREE TEXT/NARRATIVE: Mrs. Ruiz is an 85YOWF who presents with SOB. She has a chronic history of COPD, Emphysema, ASHD. She is a resident of the [facility]. IT appears she has not been using her inhaled steroids as previously prescribed which may have atributed to her exacerbation. Onset: Gradual, Other (chronic illness) Duration: Chronic Location: Reports: Chest Quality: Reports: Other (SOB) Severity: Moderate Improves with: Reports: Other (NEb, Advair) Worsens with: Reports: Movement Associated Symptoms: Reports: Shortness of Breath - Related Data Allergies Allergy/AdvReac Type Severity Reaction Status Date / Time amoxicillin Allergy Cannot Verified 06/10/20 14:25 Remember Penicillins Allergy Cannot Verified 06/10/20 14:25 Remember Home Meds: Home Meds Acetaminophen [Tylenol Arthritis] 2 tab PO TID 04/19/16 [History] Aspirin [Kylie Chewable Aspirin] 81 mg PO DAILY 04/19/16 [History] atenoloL [Tenormin] 25 mg PO DAILY 04/19/16 [History] Omeprazole 20 mg PO DAILY 12/15/18 [History] atorvaSTATin [Lipitor] 10 mg PO BEDTIME 04/08/20 [History] Fluticasone/Salmeterol [Advair 100-50] 1 puff IH BID 30 Days #1 diskus 04/10/20 [Rx] Furosemide [Lasix] 20 mg PO DAILY #30 tab 04/10/20 [Rx] Tiotropium [Spiriva HandiHaler] 18 mcg INH DAILY #30 cap 04/10/20 [Rx] levoFLOXacin [Levaquin] 750 mg PO Q48H #3 tablet 04/10/20 [Rx] Past Medical History HEENT History: Reports: Allergic Rhinitis, Cataract, Impaired Vision, Macular Degeneration Cardiovascular History: Reports: High Cholesterol, Hypertension Other Cardiovascular History: 3cm aortic bulging. Respiratory History: Reports: Asthma, Bronchitis, Recurrent, COPD, Pneumonia, Recurrent Gastrointestinal History: Reports: GERD, Hemorrhoids, Hiatal Hernia Genitourinary History: Reports: UTI, Recurrent [employer] History: Reports: Musculoskeletal History: Reports: Arthritis, Back Pain, Chronic, Fracture, Osteoarthritis - Infectious Disease History Infectious Disease History: Reports: C-Difficile, Chicken Pox, Measles, Mumps, Shingles - Past Surgical History HEENT Surgical History: Reports: Cataract Surgery, Radiocarotid Ectomy Cardiovascular Surgical History: Reports: Carotid Endarterectomy Respiratory Surgical History: Reports: None GI Surgical History: Reports: Colonoscopy Musculoskeletal Surgical History: Reports: Other (See Below) Other Musculoskeletal Surgeries/Procedures:: PLATE IN RIGHT ANKLE Social & Family History - Family History Family Medical History: No Pertinent Family History OBGYN: Reports: None Neurological: Reports: None Psychiatric: Reports: None Endocrine/Metabolic: Reports: None Hematologic: Reports: None Oncologic: Reports: Breast - Tobacco Use Tobacco Use Status *Q: Never Tobacco User - Caffeine Use Caffeine Use: Reports: Coffee - Recreational Drug Use Recreational Drug Use: No ED ROS GENERAL - Review of Systems Review Of Systems: Comprehensive ROS is negative, except as noted in HPI. Respiratory: Reports: Shortness of Breath ED EXAM, GENERAL - Physical Exam Exam: See Below Exam Limited By: No Limitations General Appearance: Alert, Mild Distress Eye Exam: Bilateral Eye: PERRL Nose: Normal Inspection, Normal Mucosa Throat/Mouth: Normal Inspection, Normal Lips Head: Atraumatic, Normocephalic Neck: Normal Inspection, Supple, Non-Tender Respiratory/Chest: Decreased Breath Sounds, Crackles, Rales Cardiovascular: Normal Peripheral Pulses, Regular Rate, Rhythm Peripheral Pulses: 2+: Brachial (L), Brachial (R) GI/Abdominal: Normal Bowel Sounds, Soft, Non-Tender Back Exam: Normal Inspection Extremities: Normal Inspection, Normal Range of Motion Neurological: Alert, Oriented, CN II-XII Intact, Normal Cognition Psychiatric: Normal Affect, Normal Mood Skin Exam: Warm, Dry, Intact, Normal Color Lymphatic: No Adenopathy Course - Vital Signs Last Recorded V/S: Last Vital Signs Temp 36.6 C 06/10/20 14:20 Pulse 94 06/10/20 14:26 Resp 24 H 06/10/20 14:26 BP 148/96 H 06/10/20 14:20 Pulse Ox 96 06/10/20 14:26 - Orders/Labs/Meds Orders: Active Orders 24 hr Category Date Time Status EKG Documentation Completion [RC] ASDIRECTED Care 06/10/20 15:25 Active RT Aerosol Therapy [RC] ASDIRECTED Care 06/10/20 15:04 Active Chest w Cont [CT] Stat Exams 06/10/20 14:40 Taken CULTURE URINE [RM] Stat Lab 06/10/20 16:11 Received Iopamidol [Isovue-300 (61%)] Med 06/10/20 15:30 Active 100 ml IV . DIRECTED Levofloxacin/Dextrose 5%-Water [Levaquin in D5W 750 MG/ Med 06/10/20 16:34 Active 150 ML] 750 mg Levofloxacin/Dextrose 5%-Water [Levaquin in D5W 750 MG/ 150 ML] 150 ml IV ONETIME Medication Orders Levofloxacin/Dextrose 750 mg/ (Levofloxacin/Dextrose) 300 mls @ 100 mls/hr IV ONETIME ONE Stop: 06/10/20 19:33 Last Admin: 06/10/20 16:43 Dose: 100 mls/hr Documented by: Iopamidol (Isovue-300 (61%)) 100 ml IV . DIRECTED [facility] Labs: Laboratory Tests 06/10/20 06/10/20 06/10/20 Range/Units 14:38 14:38 14:38 WBC 12.1 H (4.0-11.0) K/uL RBC 4.46 (3.80-5.80) M/uL Hgb 12.2 (11.5-16.5) g/dL Hct 40.6 (37.0-47.0) % MCV 91 (76-96) fL MCH 27.4 (27.0-32.0) pg MCHC 30.0 L (31.0-35.0) g/dL RDW 15.2 (11.0-16.0) % Plt Count 277 (150-500) K/uL MPV 8.9 (6.0-10.0) fL Neut % (Auto) 78.0 H (45.0-70.0) % Lymph % (Auto) 10.1 L (20.0-40.0) % [place] % (Auto) 8.3 (3.0-10.0) % Eos % (Auto) 3.4 (1.0-5.0) % Baso % (Auto) 0.2 (0.0-0.5) % Neut # (Auto) 9.46 H (2.00-7.50) K/uL Lymph # (Auto) 1.22 L (1.50-4.00) K/uL [place] # (Auto) 1.00 H (0.20-0.80) K/uL Eos # (Auto) 0.41 H (0.04-0.40) K/uL Baso # (Auto) 0.02 (0.02-0.10) K/uL Sodium 136 (136-145) mmol/L Potassium 4.9 (3.5-5.1) mmol/L Chloride 100 (98-107) mmol/L Carbon Dioxide 29.2 (21.0-32.0) mmol/L Anion Gap 11.7 (5.0-15.0) mmol/L BUN 27 H (8-26) mg/dL Creatinine 0.97 D (0.55-1.02) mg/dL Est Cr Clr Drug Dosing 32.32 mL/min Estimated GFR (MDRD) 54 L (>60) MLS/MIN BUN/Creatinine Ratio 27.8 H (6-25) Glucose 120 H (74-100) mg/dL Calcium 9.1 (8.5-10.1) mg/dL Total Bilirubin 0.5 D (0.0-1.0) mg/dL AST 51 H (15-37) U/L ALT 16 (12-78) U/L Alkaline Phosphatase 111 (46-116) U/L Total Protein 8.3 H (6.4-8.2) g/dL Albumin 3.5 (3.4-5.0) g/dL Globulin 4.8 H (2.2-4.2) g/dL Albumin/Globulin Ratio 0.7 L (0.8-2.0) Urine Color Urine Appearance (CLEAR) Urine pH (5.0-8.0) Ur Specific [place] (1.003-1.030) Urine Protein (NEGATIVE) mg/dL Urine Glucose (UA) (NEGATIVE) mg/dL Urine Ketones (NEGATIVE) mg/dL Urine Occult Blood (NEGATIVE) Urine Nitrite (NEGATIVE) Urine Bilirubin (NEGATIVE) Urine Urobilinogen (0.2-1.0) E.U./dL Ur Leukocyte Esterase (NEGATIVE) Urine RBC /HPF Urine WBC /HPF Ur Squamous Epith Cells /HPF Urine Bacteria /HPF SARS CoV-2 RNA Rapid ELA Negative 06/10/20 Range/Units 16:11 WBC (4.0-11.0) K/uL RBC (3.80-5.80) M/uL Hgb (11.5-16.5) g/dL Hct (37.0-47.0) % MCV (76-96) fL MCH (27.0-32.0) pg MCHC (31.0-35.0) g/dL RDW (11.0-16.0) % Plt Count (150-500) K/uL MPV (6.0-10.0) fL Neut % (Auto) (45.0-70.0) % Lymph % (Auto) (20.0-40.0) % [place] % (Auto) (3.0-10.0) % Eos % (Auto) (1.0-5.0) % Baso % (Auto) (0.0-0.5) % Neut # (Auto) (2.00-7.50) K/uL Lymph # (Auto) (1.50-4.00) K/uL [place] # (Auto) (0.20-0.80) K/uL Eos # (Auto) (0.04-0.40) K/uL Baso # (Auto) (0.02-0.10) K/uL Sodium (136-145) mmol/L Potassium (3.5-5.1) mmol/L Chloride (98-107) mmol/L Carbon Dioxide (21.0-32.0) mmol/L Anion Gap (5.0-15.0) mmol/L BUN (8-26) mg/dL Creatinine (0.55-1.02) mg/dL Est Cr Clr Drug Dosing mL/min Estimated GFR (MDRD) (>60) MLS/MIN BUN/Creatinine Ratio (6-25) Glucose (74-100) mg/dL Calcium (8.5-10.1) mg/dL Total Bilirubin (0.0-1.0) mg/dL AST (15-37) U/L ALT (12-78) U/L Alkaline Phosphatase (46-116) U/L Total Protein (6.4-8.2) g/dL Albumin (3.4-5.0) g/dL Globulin (2.2-4.2) g/dL Albumin/Globulin Ratio (0.8-2.0) Urine Color Yellow Urine Appearance Cloudy (CLEAR) Urine pH 5.5 (5.0-8.0) Ur Specific [place] 1.015 (1.003-1.030) Urine Protein Negative (NEGATIVE) mg/dL Urine Glucose (UA) Negative (NEGATIVE) mg/dL Urine Ketones Negative (NEGATIVE) mg/dL Urine Occult Blood Trace-intact H (NEGATIVE) Urine Nitrite Negative (NEGATIVE) Urine Bilirubin Negative (NEGATIVE) Urine Urobilinogen 0.2 (0.2-1.0) E.U./dL Ur Leukocyte Esterase Small H (NEGATIVE) Urine RBC 0-5 H /HPF Urine WBC 5-10 H /HPF Ur Squamous Epith Cells Many /HPF Urine Bacteria Moderate H /HPF SARS CoV-2 RNA Rapid ELA Meds: Medications Generic Name Dose Route Start Last Admin Trade Name Freq PRN Reason Stop Dose Admin Levofloxacin/Dextrose 750 mg/ 300 mls @ 100 mls/hr 06/10/20 16:34 06/10/20 16:43 Levofloxacin/Dextrose IV 06/10/20 19:33 100 mls/hr ONETIME ONE Administration Iopamidol 100 ml 06/10/20 15:30 Isovue-300 (61%) IV . DIRECTED KRYSTLE Discontinued Medications Generic Name Dose Route Start Last Admin Trade Name Freq PRN Reason Stop Dose Admin Albuterol/Ipratropium 3 ml 06/10/20 15:02 06/10/20 15:08 Duoneb 3.0-0.5 Mg/3 Ml NEB 06/10/20 15:03 3 ml ONETIME ONE Administration Levofloxacin/Dextrose Confirm 06/10/20 16:39 Levaquin In D5w 750 Mg/150 Ml Administered 06/10/20 16:40 Dose 150 mls @ as directed IV .STK-MED ONE Methylprednisolone Sodium Succinate 40 mg 06/10/20 16:19 06/10/20 16:31 Solu-Medrol IVPUSH 06/10/20 16:20 40 mg ONETIME ONE Administration Methylprednisolone Sodium Succinate Confirm 06/10/20 16:33 06/10/20 16:32 Solu-Medrol Administered 06/10/20 16:34 Not Given Dose 40 mg .ROUTE .STK-MED ONE Sodium Chloride 50 ml 06/10/20 15:25 Normal Saline FLUSH 06/10/20 15:26 ONETIME ONE Departure - Departure Time of Disposition: 17:00 Disposition: Admitted As Inpatient 64 Condition: Good Clinical Impression: Arteriosclerotic heart disease (ASHD) Emphysema lung Qualifiers: Emphysema type: centrilobular Qualified Code(s): J43.2 - Centrilobular emphysema - Discharge Information *PRESCRIPTION DRUG MONITORING PROGRAM REVIEWED*: Not Applicable Referrals: PCP,None [Primary Care Provider] - Forms: ED Department Discharge Additional Instructions: Inrease O2 prn, use re breather. Trial of Abx ( 750 Levaquin) for suspected UTI. Have Dr. Rivers follow up next week. Begin use of Advair. Give 40 Solumedrol IV daily, Lasix 20 per day. Heart healthy diet Vitals Q4 Sepsis Event Note (ED) - Evaluation Sepsis Screening Result: No Definite Risk - Focused Exam Vital Signs: Vital Signs Temp Pulse Resp BP Pulse Ox 06/10/20 14:26 94 24 H 96 06/10/20 14:20 36.6 C 94 24 H 148/96 H 98 - My Orders Last 24 Hours: My Active Orders 06/10/20 14:40 Chest w Cont [CT] Stat 06/10/20 15:04 RT Aerosol Therapy [RC] ASDIRECTED 06/10/20 15:25 EKG Documentation Completion [RC] ASDIRECTED 06/10/20 15:30 Iopamidol [Isovue-300 (61%)] 100 ml IV . DIRECTED 06/10/20 16:11 CULTURE URINE [RM] Stat 06/10/20 16:34 Levofloxacin/Dextrose 5%-Water [Levaquin in D5W 750 MG/150 ML] 750 mg Levofloxacin/Dextrose 5%-Water [Levaquin in D5W 750 MG/150 ML] 150 ml IV ONETIME - Assessment/Plan Last 24 Hours: My Active Orders 06/10/20 14:40 Chest w Cont [CT] Stat 06/10/20 15:04 RT Aerosol Therapy [RC] ASDIRECTED 06/10/20 15:25 EKG Documentation Completion [RC] ASDIRECTED 06/10/20 15:30 Iopamidol [Isovue-300 (61%)] 100 ml IV . DIRECTED 06/10/20 16:11 CULTURE URINE [RM] Stat 06/10/20 16:34 Levofloxacin/Dextrose 5%-Water [Levaquin in D5W 750 MG/150 ML] 750 mg Levofloxacin/Dextrose 5%-Water [Levaquin in D5W 750 MG/150 ML] 150 ml IV ONETIME Assessment:: CHF/ASHD COPD/emphysema Plan: Inrease O2 as needed at home. Trial of Abx for suspected UTI Have Dr. Rivers follow up next week. Begin use of Advair, while at home.
[2020-06-10] MEDS ORDERED: methylPREDNISolone Sodium Succinate 40 MG/1 ML SDV IVPUSH ONE (16:19)
[2020-06-10] MEDS ORDERED: methylPREDNISolone Sodium Succinate 40 MG/1 ML SDV ONE (16:33)
[2020-06-10] MEDS ORDERED: Levofloxacin/Dextrose 5%-Water 750 MG in Levofloxacin/Dextrose 5%-Water 150 ML IV ONE (16:34)
[2020-06-10] MEDS ORDERED: Levofloxacin/Dextrose 5%-Water 150 ML IV ONE (16:39)
[2020-06-10] MEDS ORDERED: Furosemide 20 MG/2 ML VIAL IVPUSH SCH (17:00)
[2020-06-10] MEDS ORDERED: Furosemide 40 MG/4 ML VIAL ONE (17:03)
[2020-06-10] MEDS ORDERED: Albuterol/Ipratropium 3.0-0.5 MG/3 ML Neb Soln NEB PRN (19:42)
[2020-06-10] MEDS ORDERED: Formoterol/Mometasone 100-5 MCG 8.8 GM Inhaler IH SCH (20:00)
[2020-06-10] MEDS ORDERED: Sodium Chloride 0.9% 1,000 ML IV SCH (21:00)
--- NOTE | 2020-06-10 21:21 | PCM.CONSN ---
- General Info Date of Service: 06/10/20 - Patient Data Vitals - Most Recent: Last Vital Signs Temp 36.6 C 06/10/20 14:20 Pulse 112 H 06/10/20 16:55 Resp 24 H 06/10/20 16:55 BP 156/60 H 06/10/20 16:55 Pulse Ox 10 L 06/10/20 16:55 Weight - Most Recent: 77.111 kg Lab Results Last 24 Hours: Laboratory Results - last 24 hr 06/10/20 06/10/20 06/10/20 Range/Units 14:38 14:38 14:38 WBC 12.1 H (4.0-11.0) K/uL RBC 4.46 (3.80-5.80) M/uL Hgb 12.2 (11.5-16.5) g/dL Hct 40.6 (37.0-47.0) % MCV 91 (76-96) fL MCH 27.4 (27.0-32.0) pg MCHC 30.0 L (31.0-35.0) g/dL RDW 15.2 (11.0-16.0) % Plt Count 277 (150-500) K/uL MPV 8.9 (6.0-10.0) fL Neut % (Auto) 78.0 H (45.0-70.0) % Lymph % (Auto) 10.1 L (20.0-40.0) % [place] % (Auto) 8.3 (3.0-10.0) % Eos % (Auto) 3.4 (1.0-5.0) % Baso % (Auto) 0.2 (0.0-0.5) % Neut # (Auto) 9.46 H (2.00-7.50) K/uL Lymph # (Auto) 1.22 L (1.50-4.00) K/uL [place] # (Auto) 1.00 H (0.20-0.80) K/uL Eos # (Auto) 0.41 H (0.04-0.40) K/uL Baso # (Auto) 0.02 (0.02-0.10) K/uL Sodium 136 (136-145) mmol/L Potassium 4.9 (3.5-5.1) mmol/L Chloride 100 (98-107) mmol/L Carbon Dioxide 29.2 (21.0-32.0) mmol/L Anion Gap 11.7 (5.0-15.0) mmol/L BUN 27 H (8-26) mg/dL Creatinine 0.97 D (0.55-1.02) mg/dL Est Cr Clr Drug Dosing 32.32 mL/min Estimated GFR (MDRD) 54 L (>60) MLS/MIN BUN/Creatinine Ratio 27.8 H (6-25) Glucose 120 H (74-100) mg/dL Calcium 9.1 (8.5-10.1) mg/dL Total Bilirubin 0.5 D (0.0-1.0) mg/dL AST 51 H (15-37) U/L ALT 16 (12-78) U/L Alkaline Phosphatase 111 (46-116) U/L Total Protein 8.3 H (6.4-8.2) g/dL Albumin 3.5 (3.4-5.0) g/dL Globulin 4.8 H (2.2-4.2) g/dL Albumin/Globulin Ratio 0.7 L (0.8-2.0) Urine Color Urine Appearance (CLEAR) Urine pH (5.0-8.0) Ur Specific [place] (1.003-1.030) Urine Protein (NEGATIVE) mg/dL Urine Glucose (UA) (NEGATIVE) mg/dL Urine Ketones (NEGATIVE) mg/dL Urine Occult Blood (NEGATIVE) Urine Nitrite (NEGATIVE) Urine Bilirubin (NEGATIVE) Urine Urobilinogen (0.2-1.0) E.U./dL Ur Leukocyte Esterase (NEGATIVE) Urine RBC /HPF Urine WBC /HPF Ur Squamous Epith Cells /HPF Urine Bacteria /HPF SARS CoV-2 RNA Rapid ELA Negative 06/10/20 Range/Units 16:11 WBC (4.0-11.0) K/uL RBC (3.80-5.80) M/uL Hgb (11.5-16.5) g/dL Hct (37.0-47.0) % MCV (76-96) fL MCH (27.0-32.0) pg MCHC (31.0-35.0) g/dL RDW (11.0-16.0) % Plt Count (150-500) K/uL MPV (6.0-10.0) fL Neut % (Auto) (45.0-70.0) % Lymph % (Auto) (20.0-40.0) % [place] % (Auto) (3.0-10.0) % Eos % (Auto) (1.0-5.0) % Baso % (Auto) (0.0-0.5) % Neut # (Auto) (2.00-7.50) K/uL Lymph # (Auto) (1.50-4.00) K/uL [place] # (Auto) (0.20-0.80) K/uL Eos # (Auto) (0.04-0.40) K/uL Baso # (Auto) (0.02-0.10) K/uL Sodium (136-145) mmol/L Potassium (3.5-5.1) mmol/L Chloride (98-107) mmol/L Carbon Dioxide (21.0-32.0) mmol/L Anion Gap (5.0-15.0) mmol/L BUN (8-26) mg/dL Creatinine (0.55-1.02) mg/dL Est Cr Clr Drug Dosing mL/min Estimated GFR (MDRD) (>60) MLS/MIN BUN/Creatinine Ratio (6-25) Glucose (74-100) mg/dL Calcium (8.5-10.1) mg/dL Total Bilirubin (0.0-1.0) mg/dL AST (15-37) U/L ALT (12-78) U/L Alkaline Phosphatase (46-116) U/L Total Protein (6.4-8.2) g/dL Albumin (3.4-5.0) g/dL Globulin (2.2-4.2) g/dL Albumin/Globulin Ratio (0.8-2.0) Urine Color Yellow Urine Appearance Cloudy (CLEAR) Urine pH 5.5 (5.0-8.0) Ur Specific [place] 1.015 (1.003-1.030) Urine Protein Negative (NEGATIVE) mg/dL Urine Glucose (UA) Negative (NEGATIVE) mg/dL Urine Ketones Negative (NEGATIVE) mg/dL Urine Occult Blood Trace-intact H (NEGATIVE) Urine Nitrite Negative (NEGATIVE) Urine Bilirubin Negative (NEGATIVE) Urine Urobilinogen 0.2 (0.2-1.0) E.U./dL Ur Leukocyte Esterase Small H (NEGATIVE) Urine RBC 0-5 H /HPF Urine WBC 5-10 H /HPF Ur Squamous Epith Cells Many /HPF Urine Bacteria Moderate H /HPF SARS CoV-2 RNA Rapid ELA Med Orders - Current: Current Medications Albuterol/Ipratropium (Duoneb 3.0-0.5 Mg/3 Ml) 3 ml NEB Q4H PRN PRN Reason: Congestion Sodium Chloride (Normal Saline) 1,000 mls @ 75 mls/hr IV ASDIRECTED [facility] Stop: 06/11/20 09:01 Iopamidol (Isovue-300 (61%)) 100 ml IV . DIRECTED KRYSTLE Mometasone Furoate/Formoterol Fumar (Dulera 100-5 Mcg) 2 puff IH BID KRYSTLE Tiotropium Issue (Spiriva Handihaler) 18 mcg INH DAILY KRYSTLE Discontinued Medications Albuterol/Ipratropium (Duoneb 3.0-0.5 Mg/3 Ml) 3 ml NEB ONETIME ONE Stop: 06/10/20 15:03 Last Admin: 06/10/20 15:08 Dose: 3 ml Documented by: Furosemide (Lasix) 20 mg IVPUSH DAILY [facility] Last Admin: 06/10/20 16:57 Dose: 20 mg Documented by: Furosemide (Lasix) Confirm Administered Dose 40 mg .ROUTE .STK-MED ONE Stop: 06/10/20 17:04 Last Admin: 06/10/20 16:56 Dose: Not Given Documented by: Levofloxacin/Dextrose 750 mg/ (Levofloxacin/Dextrose) 300 mls @ 100 mls/hr IV ONETIME ONE Stop: 06/10/20 19:33 Last Admin: 06/10/20 16:43 Dose: 100 mls/hr Documented by: Levofloxacin/Dextrose (Levaquin In D5w 750 Mg/150 Ml) Confirm Administered Dose 150 mls @ as directed IV .STK-MED ONE Stop: 06/10/20 16:40 Last Admin: 06/10/20 16:44 Dose: Not Given Documented by: Methylprednisolone Sodium Succinate (Solu-Medrol) 40 mg IVPUSH ONETIME ONE Stop: 06/10/20 16:20 Last Admin: 06/10/20 16:31 Dose: 40 mg Documented by: Methylprednisolone Sodium Succinate (Solu-Medrol) Confirm Administered Dose 40 mg .ROUTE .STK-MED ONE Stop: 06/10/20 16:34 Last Admin: 06/10/20 16:32 Dose: Not Given Documented by: Sodium Chloride (Normal Saline) 50 ml FLUSH ONETIME ONE Stop: 06/10/20 15:26 Sepsis Event Note - Evaluation Sepsis Screening Result: No Definite Risk - Focused Exam Vital Signs: Vital Signs Temp Pulse Resp BP Pulse Ox 06/10/20 16:55 112 H 24 H 156/60 H 10 L 06/10/20 16:50 112 H 20 153/84 H 98 06/10/20 14:26 94 24 H 96 06/10/20 14:20 36.6 C 94 24 H 148/96 H 98 Consult PN Assessment/Plan Procedures: Procedures AGENT NOS ASSAY W/OPTIC (04/10/16) ASSAY OF BLOOD/URIC ACID (06/24/16) ASSAY OF CREATININE (08/09/15) ASSAY OF FERRITIN (05/06/18) ASSAY OF FOLIC ACID SERUM (05/06/18) ASSAY OF MAGNESIUM (04/09/20) ASSAY OF NATRIURETIC PEPTIDE (04/09/20) ASSAY OF PHOSPHORUS (04/09/20) ASSAY OF TROPONIN QUANT (04/09/20) ASSAY THYROID STIM HORMONE (08/19/16) C DIFF AMPLIFIED PROBE (04/09/20) CANALITH REPOSITIONING PROC (01/02/15) CHEST X-RAY 2VW FRONTAL&LATL (04/10/15) COLONOSCOPY AND BIOPSY (12/16/18) COLONOSCOPY W/LESION REMOVAL (12/16/18) COMPLETE CBC AUTOMATED (04/09/20) COMPLETE CBC W/AUTO DIFF WBC (04/09/20) COMPREHEN METABOLIC PANEL (04/09/20) CT ABD & PELVIS W/O CONTRAST (04/09/20) CT THORAX DX C+ (04/24/15) CT THORAX DX C- (08/10/15) DRAIN/INJ JOINT/BURSA W/O US (08/31/18) ELECTROCARDIOGRAM TRACING (04/09/20) EMERGENCY DEPT VISIT (02/04/19) EMERGENCY DEPT VISIT (02/04/19) EXTRACRANIAL BILAT STUDY (11/20/16) FECES CULTURE AEROBIC BACT (04/09/20) HYDRATE IV INFUSION ADD-ON (04/20/16) HYDRATION IV INFUSION INIT (06/22/17) INFLUENZA ASSAY W/OPTIC (06/01/17) INITIAL OBSERVATION CARE (06/22/17) LIPID PANEL (02/02/18) METABOLIC PANEL TOTAL CA (04/09/20) MICROBE SUSCEPTIBLE MEIR (12/27/15) NEEDLE LOCALIZATION BY XRAY (08/31/18) OBSERVATION CARE DISCHARGE (06/22/17) OT EVAL LOW COMPLEX 30 MIN (04/09/20) OVA AND PARASITES SMEARS (04/10/16) PT EVAL LOW COMPLEX 20 MIN (04/09/20) PT EVALUATION (12/01/14) ROUTINE VENIPUNCTURE (04/09/20) SHIGA-LIKE TOXIN AG IA (04/09/20) SMEAR COMPLEX STAIN (04/10/16) SPECIMEN INFECT AGNT CONCNTJ (04/10/16) STOOL CULTR AEROBIC BACT EA (04/09/20) SUBSEQUENT OBSERVATION CARE (06/22/17) THER/PROPH/DIAG IV INF ADDON (04/20/16) THER/PROPH/DIAG IV INF INIT (04/20/16) THERAPEUTIC ACTIVITIES (04/09/20) THERAPEUTIC EXERCISES (04/09/20) TISSUE EXAM BY PATHOLOGIST (12/16/18) TTE W/DOPPLER COMPLETE (01/13/18) TX/PRO/DX INJ NEW DRUG ADDON (04/20/16) TX/PRO/DX INJ SAME DRUG HOUSING INSTALLER (04/20/16) URINALYSIS AUTO W/O SCOPE (04/09/20) URINALYSIS AUTO W/SCOPE (02/10/19) URINE BACTERIA CULTURE (12/27/15) URINE CULTURE/COLONY COUNT (09/23/18) US ABDL AORTA SCREEN AAA (02/02/18) VITAMIN B-12 (05/06/18) X-RAY EXAM CHEST 1 VIEW (04/09/20) X-RAY EXAM CHEST 2 VIEWS (06/01/17) X-RAY EXAM HIPS BI 2 VIEWS (06/22/18) X-RAY EXAM L-S SPINE 2/3 VWS (01/21/17) X-RAY EXAM OF HIPS (11/08/14) Problem List Initiated/Reviewed/Updated: Yes My Orders Last 24 Hours: My Active Orders 06/10/20 20:23 D Dimer [D-DIMER QUANTITATIVE] [COAG] Routine 06/10/20 20:49 INFLUENZA A+B AG, DFA W/RFLX Routine PROCALCITONIN Routine 06/10/20 21:00 Sodium Chloride 0.9% @ 75 MLS/HR(1000ml) Sodium Chloride 0.9% [Normal Saline] 1,000 ml IV ASDIRECTED 06/10/20 21:15 B-TYPE NATRIURETIC PEPTIDE,BNP [CHEM] Routine TROPONIN I [CHEM] Routine Plan: Manisha Zambrano Hospitalist CONSULTATION NOTE: [facility] was contacted by ISAI Cat with request of consultation for medical management. Reason for consult: Shortness of breath HPI: Patient is a 85-year-old female intermediate resident with pmh of HTN, COPD (on 4 to 5 L O2 at home), chronic diastolic HF who presented to the ED with complaints of shortness of breath. Says she is chronically short of breath but has been more so in the last couple of days. Says she has cough with greenish sputum for the last couple weeks. Denies any fever but endorses chills. Denies any headaches or dizziness, chest pain, abdominal pain, nausea vomiting, constipation or diarrhea. Denies any hematuria or burning micturition. Says she has not been eating or drinking much. Home Medications: Reviewed Pertinent Medical History: HTN, COPD (on 4 to 5 L O2 at home), chronic diastolic heart failure, emphysema Pertinent Social History: Former smoker (quit 20 years ago), denies alcohol use, uses a walker, intermediate resident Exam (performed via interactive video with assistance of bedside nurse): General: Alert, cooperative, no acute distress HEENT: Oral mucosa dry Lungs: Coarse breath sounds heard in right lung base, no wheezing CV: S1-S2 heard, no murmurs appreciated Abd: Bowel sounds present Ext: No pitting edema noted Skin: Small bruise on left grey (LLE). Neuro: Alert and oriented x3, moving all extremities -Vitals reviewed -CBC with WBC 12.1, left shift. Normal CBC and platelets. -BMP with electrolytes within acceptable limits -Lactic acid normal -UA with 0-5 RBCs, 5-10 WBCs, small leukocyte esterase, negative nitrites -CT chest negative for PE on my reading, showee interstitial infiltrates and consolidation in the right lower lobe -SARS-CoV-2 rapid RNA test negative -Echo from January 2018 showed LVEF 65%, mild diastolic dysfunction. Mild MR Assessment and Plan: Patient is a 85-year-old female with pmh of HTN, COPD (on 4 to 5 L O2 at home), emphysema, chronic diastolic heart failure who presented to the ED with complaints of shortness of breath. #Shortness of breath #Acute on chronic respiratory failure #Chronic diastolic heart failure-not in exacerbation #History of COPD, possibly exacerbation #Emphysema Does not appear to be volume overloaded. Chest x-ray showing right lower lobe infiltrate concerning for pneumonia. Dirty UA. Chronically on 4 to 5 L O2 at home, currently requiring the same. -Appears very dry on exam, start NS at 75 cc/hr X 12 hours. Reassess volume status in a.m. -Does not appear to be in heart failure exacerbation, hold off on any diuretics at this time. -Tachycardia likely secondary to sepsis, would refrain from using beta-blockers to control heart rate. -Recommend cefepime and doxycycline to cover HCAP. Received Levaquin in ED, reassess antibiotics in AM. -Ordered procalcitonin, D-dimer, influenza A and B, troponin, BNP. Follow-up results -Resume home inhalers and have duo nebs available every 4 hours as needed for shortness of breath or wheezing. -Follow-up urine culture. -Follow-up CT chest with contrast-formal report to rule out PE. -Wean oxygen as tolerated. -Was given Solu-Medrol 40 mg IV X1 dose in ED-for possible COPD exacerbation. Her oxygen requirements are at her baseline. Recommend switching to p.o. steroids tomorrow. [facility]. This service is available for further assistance as requested by your care team by calling [phone].
[2020-06-10] MEDS: Acetaminophen 650 MG Tab.ER PO PRN (21:30)
[2020-06-10] MEDS: ADVAIR INH SCH (22:07)
--- NOTE | 2020-06-11 07:05 | CT ---
Date of Service: 06/10/20 Clinical Data: shortness of breath ENHANCED CHEST CT: Multislice acquisition through the chest with IV contrast was performed. Comparison is made to a prior exam dated 08/615. There is suboptimal contrast opacification of the pulmonary arteries. No gross evidence for PE. No pneumothorax. No pleural effusions. No aortic aneurysm or dissection. There are emphysematous changes throughout both lungs. There are atelectatic changes within the right middle lobe, lingular segment of the left upper lobe, and in both lung bases. There are multiple small pleural and subpleural nodules. The heart size is normal. There are moderate coronary artery calcifications. No significant pericardial effusion. There is a large hiatal hernia. There is degenerative disk disease throughout the thoracic spine. No other significant findings. [id number] [facility]
[2020-06-11] MEDS ORDERED: Atenolol 25 MG Tab PO SCH (08:00)
[2020-06-11] MEDS: Calcium Carbonate 600 MG Tab PO SCH (09:12)
[2020-06-11] MEDS: Aspirin 81 MG Tab.EC PO SCH (09:12)
[2020-06-11] MEDS: ADVAIR INH SCH ×2 (09:13→19:31)
[2020-06-11] MEDS: Atenolol 25 MG Tab PO SCH (09:15)
[2020-06-11] MEDS: methylPREDNISolone Sodium Succinate 40 MG/1 ML SDV IVPUSH SCH (09:16)
--- NOTE | 2020-06-11 10:08 | CR ---
DATE OF SERVICE: 06/11/2020 CLINICAL DATA: CRACKLES UPON AUSCULTATION PA and lateral chest: Comparison is made to a prior exam dated 11 April 2020. The patient is in an apical lordotic position. The heart size is stable. There is calcification of the aortic arch. The pulmonary vasculature does appear to be more prominent than on the prior exam with some cephalization of flow suggesting mild pulmonary venous congestion. There is persistent eventration of the right hemidiaphragm with atelectatic changes in the right lung base. The lungs are otherwise clear. No pneumothorax. No pleural effusions. There is a mass posterior to the heart containing an air-fluid level consistent with a large hiatal hernia. MTDD
[2020-06-11] MEDS: Pantoprazole 40 MG Tab.CR PO SCH (10:10)
--- NOTE | 2020-06-11 10:15 | CR ---
DATE OF SERVICE: 06/11/2020 CLINICAL DATA: CRACKLES UPON AUSCULATION PA and lateral chest: Comparison is made to a prior exam dated 11 April 2020. The patient is in an apical lordotic position. The heart size is stable. There is calcification of the aortic arch. The pulmonary vasculature does appear to be more prominent than on the prior exam with some cephalization of flow suggesting mild pulmonary venous congestion. There is persistent eventration of the right hemidiaphragm with atelectatic changes in the right lung base. The lungs are otherwise clear. No pneumothorax. No pleural effusions . There is a mass posterior to the heart containing an air-fluid level consistent with a large hiatal hernia. MTDD
--- NOTE | 2020-06-11 10:29 | PCM.HP.2 ---
H&P History of Present Illness - General Date of Service: 06/11/20 Source of Information: Patient, RN History Limitations: Reports: No Limitations - History of Present Illness Initial Comments - Free Text/Narative: Mrs. Ruiz is an [id number] who presents with SOB. She has a chronic history of COPD, Emphysema, ASHD. She is a resident of the [facility]. IT appears she has not been using her inhaled steroids as previously prescribed which may have attributed to her exacerbation. She is on 3-4 L of O2 daily at home. She is seen frequently here for this compliant. No other concerns. SOB episodes are worsened by getting out of bed. She appears in no distress at rest. Crackles and rales can be heard by auscultation. Heart rate is increased with variations of tachycardia, exacerbated by movement. Normal heart rhythm. No fever, No abdominal pain. No N, V or D. No edema. No RODRIGUEZ. Onset of Symptoms: Reports: Gradual Duration of Symptoms: Reports: Waxing/Waning Location: Reports: Chest Severity: Mild Improves with: Reports: Rest, Other (O2) Worsens with: Reports: Movement Associated Symptoms: Reports: Shortness of Breath, Weakness - Related Data Allergies/Adverse Reactions: Allergies Allergy/AdvReac Type Severity Reaction Status Date / Time amoxicillin Allergy Cannot Verified 06/10/20 14:25 Remember Penicillins Allergy Cannot Verified 06/10/20 14:25 Remember Home Medications: Home Meds Acetaminophen [Tylenol Arthritis] 1 tab PO BID 04/19/16 [History] Aspirin [Kylie Chewable Aspirin] 81 mg PO DAILY 04/19/16 [History] atorvaSTATin [Lipitor] 10 mg PO BEDTIME 04/08/20 [History] Fluticasone/Salmeterol [Advair 100-50] 1 puff IH BID 30 Days #1 diskus 04/10/20 [Rx] Tiotropium [Spiriva HandiHaler] 18 mcg INH DAILY #30 cap 04/10/20 [Rx] Albuterol/Ipratropium [DuoNeb 3.0-0.5 MG/3 ML] 1 vial INH Q4H 06/10/20 [History] Calcium Carbonate [Calcium] 1 tab PO DAILY 06/10/20 [History] Fluticasone Propionate [Flonase] 2 spray INH DAILY 06/10/20 [History] Loratadine [Claritin] 1 tab PO DAILY 06/10/20 [History] Meclizine [Antivert] 12.5 mg PO Q24H PRN 06/10/20 [History] Pantoprazole Sodium [Protonix] 1 tab PO DAILY 06/10/20 [History] atenoloL [Atenolol] 0.5 tab PO DAILY 06/10/20 [History] Past Medical History HEENT History: Reports: Allergic Rhinitis, Cataract, Impaired Vision, Macular Degeneration Cardiovascular History: Reports: High Cholesterol, Hypertension Other Cardiovascular History: 3cm aortic bulging. Respiratory History: Reports: Asthma, Bronchitis, Recurrent, COPD, Pneumonia, Recurrent Gastrointestinal History: Reports: GERD, Hemorrhoids, Hiatal Hernia Genitourinary History: Reports: UTI, Recurrent [employer] History: Reports: Musculoskeletal History: Reports: Arthritis, Back Pain, Chronic, Fracture, Osteoarthritis - Infectious Disease History Infectious Disease History: Reports: C-Difficile, Chicken Pox, Measles, Mumps, Shingles - Past Surgical History HEENT Surgical History: Reports: Cataract Surgery, Radiocarotid Ectomy Cardiovascular Surgical History: Reports: Carotid Endarterectomy Respiratory Surgical History: Reports: None GI Surgical History: Reports: Colonoscopy Musculoskeletal Surgical History: Reports: Other (See Below) Other Musculoskeletal Surgeries/Procedures:: PLATE IN RIGHT ANKLE Social & Family History - Family History Family Medical History: No Pertinent Family History OBGYN: Reports: None Neurological: Reports: None Psychiatric: Reports: None Endocrine/Metabolic: Reports: None Hematologic: Reports: None Oncologic: Reports: Breast - Tobacco Use Tobacco Use Status *Q: Former Tobacco User Used Tobacco, but Quit: Yes Month/Year Tobacco Last Used: 04/1999 - Caffeine Use Caffeine Use: Reports: Coffee - Recreational Drug Use Recreational Drug Use: No H&P Review of Systems - Review of Systems: Review Of Systems: See Below General: Reports: Weakness Pulmonary: Reports: Shortness of Breath Cardiovascular: Reports: Other (tachycardia) Exam - Exam Exam: See Below - Vital Signs Vital Signs: Last Vital Signs Temp 36.6 C 06/11/20 04:00 Pulse 109 H 06/11/20 09:15 Resp 24 H 06/11/20 04:00 BP 143/60 H 06/11/20 09:15 Pulse Ox 94 L 06/11/20 04:00 Weight: 77.111 kg - Exam General: Alert, Oriented, Cooperative, Mild Distress HEENT: PERRLA, Conjunctiva Clear, Other (mild dehydration, dry mouth) Neck: Supple, Trachea Midline Lungs: Clear to Auscultation, Normal Respiratory Effort Cardiovascular: Regular Rhythm, Tachycardia GI/Abdominal Exam: Normal Bowel Sounds, Soft, Non-Tender Back Exam: Normal Inspection Extremities: Normal Inspection, Normal Range of Motion, Non-Tender Peripheral Pulses: 2+: Brachial (L), Brachial (R) Skin: Warm, Dry, Intact Neurological: Cranial Nerves Intact Neuro Extensive - Mental Status: Alert, Oriented x3, Normal Mood/Affect, Normal Cognition, Memory Intact Neuro Extensive - Motor, Sensory, Reflexes: CN II-XII Intact, Normal Reflexes Psychiatric: Alert, Normal Affect, Normal Mood - Patient Data Lab Results Last 24 hrs: Laboratory Results - last 24 hr 06/10/20 06/10/20 06/10/20 Range/Units 14:38 14:38 14:38 WBC 12.1 H (4.0-11.0) K/uL RBC 4.46 (3.80-5.80) M/uL Hgb 12.2 (11.5-16.5) g/dL Hct 40.6 (37.0-47.0) % MCV 91 (76-96) fL MCH 27.4 (27.0-32.0) pg MCHC 30.0 L (31.0-35.0) g/dL RDW 15.2 (11.0-16.0) % Plt Count 277 (150-500) K/uL MPV 8.9 (6.0-10.0) fL Neut % (Auto) 78.0 H (45.0-70.0) % Lymph % (Auto) 10.1 L (20.0-40.0) % Dillon % (Auto) 8.3 (3.0-10.0) % Eos % (Auto) 3.4 (1.0-5.0) % Baso % (Auto) 0.2 (0.0-0.5) % Neut # (Auto) 9.46 H (2.00-7.50) K/uL Lymph # (Auto) 1.22 L (1.50-4.00) K/uL Dillon # (Auto) 1.00 H (0.20-0.80) K/uL Eos # (Auto) 0.41 H (0.04-0.40) K/uL Baso # (Auto) 0.02 (0.02-0.10) K/uL D-Dimer, Quantitative (0-400) ng/mL Sodium 136 (136-145) mmol/L Potassium 4.9 (3.5-5.1) mmol/L Chloride 100 (98-107) mmol/L Carbon Dioxide 29.2 (21.0-32.0) mmol/L Anion Gap 11.7 (5.0-15.0) mmol/L BUN 27 H (8-26) mg/dL Creatinine 0.97 D (0.55-1.02) mg/dL Est Cr Clr Drug Dosing 32.32 mL/min Estimated GFR (MDRD) 54 L (>60) MLS/MIN BUN/Creatinine Ratio 27.8 H (6-25) Glucose 120 H (74-100) mg/dL Lactic Acid (0.4-2.0) mmol/L Calcium 9.1 (8.5-10.1) mg/dL Total Bilirubin 0.5 D (0.0-1.0) mg/dL AST 51 H (15-37) U/L ALT 16 (12-78) U/L Alkaline Phosphatase 111 (46-116) U/L Troponin I (0.000-0.060) ng/mL B-Natriuretic Peptide (0-450) pg/mL Total Protein 8.3 H (6.4-8.2) g/dL Albumin 3.5 (3.4-5.0) g/dL Globulin 4.8 H (2.2-4.2) g/dL Albumin/Globulin Ratio 0.7 L (0.8-2.0) Urine Color Urine Appearance (CLEAR) Urine pH (5.0-8.0) Ur Specific [place] (1.003-1.030) Urine Protein (NEGATIVE) mg/dL Urine Glucose (UA) (NEGATIVE) mg/dL Urine Ketones (NEGATIVE) mg/dL Urine Occult Blood (NEGATIVE) Urine Nitrite (NEGATIVE) Urine Bilirubin (NEGATIVE) Urine Urobilinogen (0.2-1.0) E.U./dL Ur Leukocyte Esterase (NEGATIVE) Urine RBC /HPF Urine WBC /HPF Ur Squamous Epith Cells /HPF Urine Bacteria /HPF SARS CoV-2 RNA Rapid ELA Negative 03/07/21 03/07/21 03/08/21 Range/Units 16:11 18:58 08:11 WBC (4.0-11.0) K/uL RBC (3.80-5.80) M/uL Hgb (11.5-16.5) g/dL Hct (37.0-47.0) % MCV (76-96) fL MCH (27.0-32.0) pg MCHC (31.0-35.0) g/dL RDW (11.0-16.0) % Plt Count (150-500) K/uL MPV (6.0-10.0) fL Neut % (Auto) (45.0-70.0) % Lymph % (Auto) (20.0-40.0) % Dillon % (Auto) (3.0-10.0) % Eos % (Auto) (1.0-5.0) % Baso % (Auto) (0.0-0.5) % Neut # (Auto) (2.00-7.50) K/uL Lymph # (Auto) (1.50-4.00) K/uL Dillon # (Auto) (0.20-0.80) K/uL Eos # (Auto) (0.04-0.40) K/uL Baso # (Auto) (0.02-0.10) K/uL D-Dimer, Quantitative (0-400) ng/mL Sodium (136-145) mmol/L Potassium (3.5-5.1) mmol/L Chloride (98-107) mmol/L Carbon Dioxide (21.0-32.0) mmol/L Anion Gap (5.0-15.0) mmol/L BUN (8-26) mg/dL Creatinine (0.55-1.02) mg/dL Est Cr Clr Drug Dosing mL/min Estimated GFR (MDRD) (>60) MLS/MIN BUN/Creatinine Ratio (6-25) Glucose (74-100) mg/dL Lactic Acid 1.7 Cancelled (0.4-2.0) mmol/L Calcium (8.5-10.1) mg/dL Total Bilirubin (0.0-1.0) mg/dL AST (15-37) U/L ALT (12-78) U/L Alkaline Phosphatase (46-116) U/L Troponin I (0.000-0.060) ng/mL B-Natriuretic Peptide (0-450) pg/mL Total Protein (6.4-8.2) g/dL Albumin (3.4-5.0) g/dL Globulin (2.2-4.2) g/dL Albumin/Globulin Ratio (0.8-2.0) Urine Color Yellow Urine Appearance Cloudy (CLEAR) Urine pH 5.5 (5.0-8.0) Ur Specific [place] 1.015 (1.003-1.030) Urine Protein Negative (NEGATIVE) mg/dL Urine Glucose (UA) Negative (NEGATIVE) mg/dL Urine Ketones Negative (NEGATIVE) mg/dL Urine Occult Blood Trace-intact H (NEGATIVE) Urine Nitrite Negative (NEGATIVE) Urine Bilirubin Negative (NEGATIVE) Urine Urobilinogen 0.2 (0.2-1.0) E.U./dL Ur Leukocyte Esterase Small H (NEGATIVE) Urine RBC 0-5 H /HPF Urine WBC 5-10 H /HPF Ur Squamous Epith Cells Many /HPF Urine Bacteria Moderate H /HPF SARS CoV-2 RNA Rapid ELA 06/11/20 06/11/20 06/11/20 Range/Units 08:20 08:20 08:20 WBC 11.7 H (4.0-11.0) K/uL RBC 4.20 (3.80-5.80) M/uL Hgb 11.4 L (11.5-16.5) g/dL Hct 37.8 (37.0-47.0) % MCV 90 (76-96) fL MCH 27.1 (27.0-32.0) pg MCHC 30.2 L (31.0-35.0) g/dL RDW 15.2 (11.0-16.0) % Plt Count 291 (150-500) K/uL MPV 8.7 (6.0-10.0) fL Neut % (Auto) 90.2 H (45.0-70.0) % Lymph % (Auto) 5.2 L (20.0-40.0) % Dillon % (Auto) 4.5 (3.0-10.0) % Eos % (Auto) 0.0 L (1.0-5.0) % Baso % (Auto) 0.1 (0.0-0.5) % Neut # (Auto) 10.51 H (2.00-7.50) K/uL Lymph # (Auto) 0.61 L (1.50-4.00) K/uL Dillon # (Auto) 0.52 (0.20-0.80) K/uL Eos # (Auto) 0.00 L (0.04-0.40) K/uL Baso # (Auto) 0.01 L (0.02-0.10) K/uL D-Dimer, Quantitative 1180 H (0-400) ng/mL Sodium 138 (136-145) mmol/L Potassium 4.1 (3.5-5.1) mmol/L Chloride 100 (98-107) mmol/L Carbon Dioxide 29.3 (21.0-32.0) mmol/L Anion Gap 12.8 (5.0-15.0) mmol/L BUN 23 (8-26) mg/dL Creatinine 1.19 H D (0.55-1.02) mg/dL Est Cr Clr Drug Dosing 26.34 mL/min Estimated GFR (MDRD) 43 L (>60) MLS/MIN BUN/Creatinine Ratio 19.3 (6-25) Glucose 127 H (74-100) mg/dL Lactic Acid (0.4-2.0) mmol/L Calcium 8.9 (8.5-10.1) mg/dL Total Bilirubin 0.3 D (0.0-1.0) mg/dL AST 15 (15-37) U/L ALT 12 (12-78) U/L Alkaline Phosphatase 98 (46-116) U/L Troponin I < 0.017 D (0.000-0.060) ng/mL B-Natriuretic Peptide 2620 H D (0-450) pg/mL Total Protein 8.0 (6.4-8.2) g/dL Albumin 3.4 (3.4-5.0) g/dL Globulin 4.6 H (2.2-4.2) g/dL Albumin/Globulin Ratio 0.7 L (0.8-2.0) Urine Color Urine Appearance (CLEAR) Urine pH (5.0-8.0) Ur Specific [place] (1.003-1.030) Urine Protein (NEGATIVE) mg/dL Urine Glucose (UA) (NEGATIVE) mg/dL Urine Ketones (NEGATIVE) mg/dL Urine Occult Blood (NEGATIVE) Urine Nitrite (NEGATIVE) Urine Bilirubin (NEGATIVE) Urine Urobilinogen (0.2-1.0) E.U./dL Ur Leukocyte Esterase (NEGATIVE) Urine RBC /HPF Urine WBC /HPF Ur Squamous Epith Cells /HPF Urine Bacteria /HPF SARS CoV-2 RNA Rapid ELA 06/11/20 Range/Units 08:20 WBC (4.0-11.0) K/uL RBC (3.80-5.80) M/uL Hgb (11.5-16.5) g/dL Hct (37.0-47.0) % MCV (76-96) fL MCH (27.0-32.0) pg MCHC (31.0-35.0) g/dL RDW (11.0-16.0) % Plt Count (150-500) K/uL MPV (6.0-10.0) fL Neut % (Auto) (45.0-70.0) % Lymph % (Auto) (20.0-40.0) % Dillon % (Auto) (3.0-10.0) % Eos % (Auto) (1.0-5.0) % Baso % (Auto) (0.0-0.5) % Neut # (Auto) (2.00-7.50) K/uL Lymph # (Auto) (1.50-4.00) K/uL Dillon # (Auto) (0.20-0.80) K/uL Eos # (Auto) (0.04-0.40) K/uL Baso # (Auto) (0.02-0.10) K/uL D-Dimer, Quantitative (0-400) ng/mL Sodium (136-145) mmol/L Potassium (3.5-5.1) mmol/L Chloride (98-107) mmol/L Carbon Dioxide (21.0-32.0) mmol/L Anion Gap (5.0-15.0) mmol/L BUN (8-26) mg/dL Creatinine (0.55-1.02) mg/dL Est Cr Clr Drug Dosing mL/min Estimated GFR (MDRD) (>60) MLS/MIN BUN/Creatinine Ratio (6-25) Glucose (74-100) mg/dL Lactic Acid 2.3 H (0.4-2.0) mmol/L Calcium (8.5-10.1) mg/dL Total Bilirubin (0.0-1.0) mg/dL AST (15-37) U/L ALT (12-78) U/L Alkaline Phosphatase (46-116) U/L Troponin I (0.000-0.060) ng/mL B-Natriuretic Peptide (0-450) pg/mL Total Protein (6.4-8.2) g/dL Albumin (3.4-5.0) g/dL Globulin (2.2-4.2) g/dL Albumin/Globulin Ratio (0.8-2.0) Urine Color Urine Appearance (CLEAR) Urine pH (5.0-8.0) Ur Specific [place] (1.003-1.030) Urine Protein (NEGATIVE) mg/dL Urine Glucose (UA) (NEGATIVE) mg/dL Urine Ketones (NEGATIVE) mg/dL Urine Occult Blood (NEGATIVE) Urine Nitrite (NEGATIVE) Urine Bilirubin (NEGATIVE) Urine Urobilinogen (0.2-1.0) E.U./dL Ur Leukocyte Esterase (NEGATIVE) Urine RBC /HPF Urine WBC /HPF Ur Squamous Epith Cells /HPF Urine Bacteria /HPF SARS CoV-2 RNA Rapid ELA Result Diagrams: 06/11/20 08:20 06/11/20 08:20 Sepsis Event Note - Evaluation Sepsis Screening Result: Severe Sepsis Risk - Focused Exam Vital Signs: Vital Signs Temp Pulse Pulse Resp BP BP Pulse Ox 06/11/20 09:15 109 H 143/60 H 06/11/20 04:00 36.6 C 108 H 24 H 106/53 L 94 L 06/11/20 00:00 95 06/10/20 23:00 105 H 18 94 L - Problem List (1) Emphysema lung SNOMED Code(s): 50866152 ICD Code: J43.9 - EMPHYSEMA, UNSPECIFIED Status: Chronic Priority: High Current Visit: Yes Qualifiers: Emphysema type: centrilobular Qualified Code(s): J43.2 - Centrilobular emphysema (2) UTI (urinary tract infection) SNOMED Code(s): 67704551 ICD Code: N39.0 - URINARY TRACT INFECTION, SITE NOT SPECIFIED Status: Acute Priority: Medium Current Visit: Yes Qualifiers: Urinary tract infection type: acute cystitis Problem List Initiated/Reviewed/Updated: Yes Orders Last 24hrs: Active Orders 24 hr Category Date Time Status EKG Documentation Completion [RC] ASDIRECTED Care 06/10/20 15:25 Active Overnight Pulse Oximetry [RC] 00 Care 06/10/20 16:51 Active RT Aerosol Therapy [RC] .PRN Care 06/10/20 15:04 Active RT Post Treatment Assessment [RC] Click to Edit Care 06/10/20 19:43 Active Telemetry Monitoring [Cardiac Monitoring] [RC] 08,20 Care 06/10/20 16:50 Active CBC WITH AUTO DIFF [HEME] AM Lab 06/12/20 05:11 Ordered COMPREHENSIVE METABOLIC PN,CMP [CHEM] DAILY Lab 06/11/20 16:57 Ordered COMPREHENSIVE METABOLIC PN,CMP [CHEM] DAILY Lab 06/12/20 16:57 Ordered COMPREHENSIVE METABOLIC PN,CMP [CHEM] DAILY Lab 06/13/20 16:57 Ordered CULTURE URINE [RM] Stat Lab 06/10/20 16:11 Received Acetaminophen [Tylenol Arthritis Pain] Med 06/10/20 22:13 Active 650 mg PO BID PRN Albuterol/Ipratropium [DuoNeb 3.0-0.5 MG/3 ML] Med 06/10/20 19:42 Active 3 ml NEB Q4H PRN Aspirin [Halfprin] Med 06/11/20 08:00 Active 81 mg PO DAILY Calcium Carbonate Med 06/11/20 08:00 Active 600 mg PO DAILY Iopamidol [Isovue-300 (61%)] Med 06/10/20 15:30 Active 100 ml IV . DIRECTED Levofloxacin/Dextrose 5%-Water [Levaquin in D5W 750 MG/ Med 06/11/20 12:00 Pending 150 ML] 750 mg Levofloxacin/Dextrose 5%-Water [Levaquin in D5W 750 MG/ 150 ML] 150 ml IV Q24H Non-Formulary Medication [NF Drug] Med 06/10/20 22:15 Active 1 each INH BID Pantoprazole [ProTONIX] Med 06/11/20 07:00 Active 40 mg PO ACBREAKFAST Tiotropium [Spiriva HandiHaler] Med 06/11/20 08:00 Active 18 mcg INH DAILY atenoloL [Tenormin] Med 06/11/20 08:00 Active 12.5 mg PO DAILY atorvaSTATin [Lipitor] Med 06/11/20 20:00 Active 10 mg PO BEDTIME methylPREDNISolone Sod Succ [Solu-MEDROL] Med 06/11/20 08:00 Active 40 mg IVPUSH DAILY Pulse Oximetry Continuous Monitoring [OM.PC] Routine Oth 06/10/20 16:50 Ordered Resuscitation Status Routine Resus Stat 06/10/20 18:39 Ordered Medication Orders Acetaminophen (Tylenol Arthritis Pain) 650 mg PO BID PRN PRN Reason: Pain Last Admin: 06/10/20 21:30 Dose: 650 mg Documented by: EN Albuterol/Ipratropium (Duoneb 3.0-0.5 Mg/3 Ml) 3 ml NEB Q4H PRN PRN Reason: Congestion Aspirin (Halfprin) 81 mg PO DAILY [facility] Last Admin: 06/11/20 09:12 Dose: 81 mg Documented by: ERWIN Atenolol (Tenormin) 12.5 mg PO DAILY [facility] Last Admin: 06/11/20 09:15 Dose: 12.5 mg Documented by: ERWIN Atorvastatin Calcium (Lipitor) 10 mg PO BEDTIME [facility] Calcium Carbonate/Glycine (Calcium Carbonate) 600 mg PO DAILY [facility] Last Admin: 06/11/20 09:12 Dose: 600 mg Documented by: ERWIN Levofloxacin/Dextrose 750 mg/ (Levofloxacin/Dextrose) 300 mls @ 100 mls/hr IV Q24H [facility] Iopamidol (Isovue-300 (61%)) 100 ml IV . DIRECTED [facility] Methylprednisolone Sodium Succinate (Solu-Medrol) 40 mg IVPUSH DAILY [facility] Last Admin: 06/11/20 09:16 Dose: 40 mg Documented by: ERWIN Advair Diskus 100-50 (InhalerOwn Med) 1 each INH BID [facility] Last Admin: 06/11/20 09:13 Dose: 1 each Documented by: Admin: 06/10/20 22:07 Dose: 1 each Documented by: EN Pantoprazole Sodium (Protonix) 40 mg PO ACBREAKFAST [facility] Last Admin: 06/11/20 10:10 Dose: 40 mg Documented by: ERWIN Tiotropium [place] (Spiriva Handihaler) 18 mcg INH DAILY [facility] Assessment/Plan Comment:: Assessment- UTI, chronic emphysema. Plan- UTI- DC on Levaquin 750 q 48hrs for 3 days. Increase oral fluids. COPD-Continue back on Advair with Spiriva. NC 3-4L of O2 at home. Medrol dose pack for OP use. - Mortality Measure Prognosis:: Good
[2020-06-11] MEDS: Tiotropium Inhaler 18 MCG Inhalation Powder Cap Kit of 5 INH SCH (10:37)
[2020-06-11] MEDS ORDERED: Levofloxacin/Dextrose 5%-Water 750 MG in Levofloxacin/Dextrose 5%-Water 150 ML IV SCH (12:00)
--- NOTE | 2020-06-11 13:37 | PCM.DCSUM1 ---
Discharge Summary - Hospital Course Free Text/Narrative:: COPD-Treatment with NC O2 initiated 4-6L , alternated with NRB as needed in ED and upon admission toña, then weened to straight NC 3-4 L by AM.Treatment with Solumedrol 20mg once a day, and Duo Neb with Advair prn. CT evaluation, CXR and labs. EKG. UTI- Levaquin IV 750. NS rate30 to 75 of Fluids, 20mg Lasix. Monitored I/O. U/A, Culture. HPI Initial Comments: Mrs. Ruiz is an [id number] who presents with SOB. She has a chronic history of COPD, Emphysema, ASHD. She is a resident of the [facility]. IT appears she has not been using her inhaled steroids as previously prescribed which may have attributed to her exacerbation. She is on 3-4 L of O2 daily at home. She is seen frequently here for this compliant. No other concerns. SOB episodes are worsened by getting out of bed. She appears in no distress at rest. Crackles and rales can be heard by auscultation. Heart rate is increased with variations of tachycardia, exacerbated by movement. Normal heart rhythm. No fever, No abdominal pain. No N, V or D. No edema. No RODRIGUEZ. Upon observation admission a UTI was dx and treatment was initiated. Diagnosis: Stroke: No - Discharge Data Discharge Date: 06/11/20 Discharge Disposition: DC/Tfer to [facility] Condition: Good - Referral to Home Health Primary Care Physician: PCP None - Discharge Diagnosis/Problem(s) (1) Emphysema lung SNOMED Code(s): 34104466 ICD Code: J43.9 - EMPHYSEMA, UNSPECIFIED Status: Chronic Priority: High Current Visit: Yes Qualifiers: Emphysema type: centrilobular Qualified Code(s): J43.2 - Centrilobular emphysema (2) UTI (urinary tract infection) SNOMED Code(s): 33424440 ICD Code: N39.0 - URINARY TRACT INFECTION, SITE NOT SPECIFIED Status: Acute Priority: Medium Current Visit: Yes Qualifiers: Urinary tract infection type: acute cystitis - Patient Instructions Diet: Heart Healthy Diet Activity: As Tolerated Showering/Bathing: May Shower - Discharge Plan *PRESCRIPTION DRUG MONITORING PROGRAM REVIEWED*: Not Applicable *COPY OF PRESCRIPTION DRUG MONITORING REPORT IN PATIENT QUINTON: No Home Medications: Home Meds Acetaminophen [Tylenol Arthritis] 1 tab PO BID 04/19/16 [History] Aspirin [Kylie Chewable Aspirin] 81 mg PO DAILY 04/19/16 [History] atorvaSTATin [Lipitor] 10 mg PO BEDTIME 04/08/20 [History] Fluticasone/Salmeterol [Advair 100-50] 1 puff IH BID 30 Days #1 diskus 04/10/20 [Rx] Tiotropium [Spiriva HandiHaler] 18 mcg INH DAILY #30 cap 04/10/20 [Rx] Albuterol/Ipratropium [DuoNeb 3.0-0.5 MG/3 ML] 1 vial INH Q4H 06/10/20 [History] Calcium Carbonate [Calcium] 1 tab PO DAILY 06/10/20 [History] Fluticasone Propionate [Flonase] 2 spray INH DAILY 06/10/20 [History] Loratadine [Claritin] 1 tab PO DAILY 06/10/20 [History] Meclizine [Antivert] 12.5 mg PO Q24H PRN 06/10/20 [History] Pantoprazole Sodium [Protonix] 1 tab PO DAILY 06/10/20 [History] atenoloL [Atenolol] 0.5 tab PO DAILY 06/10/20 [History] Oxygen Therapy Mode: Nasal Cannula (3-5 L) Oxygen Flow Rate (L/min): 4 Patient Handouts: Metered Dose Inhaler (No Spacer Used), Urinary Tract Infection, Adult, [id number] Forms: ED Department Discharge Referrals: PCP,None [Primary Care Provider] - - Discharge Summary/Plan Comment DC Time >30 min.: Yes Discharge Summary/Plan Comment: Increase oral fluid intake. Start 750 Levaquin PO tomorrow for 3 days q 48. Start in AM Medrol dose pack. Use as directed on package. Continue O2 NC 4L. Continue Advair and Spiriva. Do Duo Maile PRN. Continue Lasix 20mg daily. - Patient Data Vitals - Most Recent: Last Vital Signs Temp 36.6 C 06/11/20 08:00 Pulse 109 H 06/11/20 09:15 Resp 20 06/11/20 08:00 BP 143/60 H 06/11/20 09:15 Pulse Ox 95 06/11/20 08:00 Weight - Most Recent: 76.748 kg I&O - Last 24 hours: Intake & Output 06/10/20 06/11/20 06/11/20 22:59 06:59 14:59 Intake Total 1043 Output Total 1600 Balance -557 Lab Results - Last 24 hrs: Laboratory Results - last 24 hr 06/10/20 06/10/20 06/10/20 Range/Units 14:38 14:38 14:38 WBC 12.1 H (4.0-11.0) K/uL RBC 4.46 (3.80-5.80) M/uL Hgb 12.2 (11.5-16.5) g/dL Hct 40.6 (37.0-47.0) % MCV 91 (76-96) fL MCH 27.4 (27.0-32.0) pg MCHC 30.0 L (31.0-35.0) g/dL RDW 15.2 (11.0-16.0) % Plt Count 277 (150-500) K/uL MPV 8.9 (6.0-10.0) fL Neut % (Auto) 78.0 H (45.0-70.0) % Lymph % (Auto) 10.1 L (20.0-40.0) % [place] % (Auto) 8.3 (3.0-10.0) % Eos % (Auto) 3.4 (1.0-5.0) % Baso % (Auto) 0.2 (0.0-0.5) % Neut # (Auto) 9.46 H (2.00-7.50) K/uL Lymph # (Auto) 1.22 L (1.50-4.00) K/uL [place] # (Auto) 1.00 H (0.20-0.80) K/uL Eos # (Auto) 0.41 H (0.04-0.40) K/uL Baso # (Auto) 0.02 (0.02-0.10) K/uL D-Dimer, Quantitative (0-400) ng/mL Sodium 136 (136-145) mmol/L Potassium 4.9 (3.5-5.1) mmol/L Chloride 100 (98-107) mmol/L Carbon Dioxide 29.2 (21.0-32.0) mmol/L Anion Gap 11.7 (5.0-15.0) mmol/L BUN 27 H (8-26) mg/dL Creatinine 0.97 D (0.55-1.02) mg/dL Est Cr Clr Drug Dosing 32.32 mL/min Estimated GFR (MDRD) 54 L (>60) MLS/MIN BUN/Creatinine Ratio 27.8 H (6-25) Glucose 120 H (74-100) mg/dL Lactic Acid (0.4-2.0) mmol/L Calcium 9.1 (8.5-10.1) mg/dL Total Bilirubin 0.5 D (0.0-1.0) mg/dL AST 51 H (15-37) U/L ALT 16 (12-78) U/L Alkaline Phosphatase 111 (46-116) U/L Troponin I (0.000-0.060) ng/mL B-Natriuretic Peptide (0-450) pg/mL Total Protein 8.3 H (6.4-8.2) g/dL Albumin 3.5 (3.4-5.0) g/dL Globulin 4.8 H (2.2-4.2) g/dL Albumin/Globulin Ratio 0.7 L (0.8-2.0) Urine Color Urine Appearance (CLEAR) Urine pH (5.0-8.0) Ur Specific [place] (1.003-1.030) Urine Protein (NEGATIVE) mg/dL Urine Glucose (UA) (NEGATIVE) mg/dL Urine Ketones (NEGATIVE) mg/dL Urine Occult Blood (NEGATIVE) Urine Nitrite (NEGATIVE) Urine Bilirubin (NEGATIVE) Urine Urobilinogen (0.2-1.0) E.U./dL Ur Leukocyte Esterase (NEGATIVE) Urine RBC /HPF Urine WBC /HPF Ur Squamous Epith Cells /HPF Urine Bacteria /HPF SARS CoV-2 RNA Rapid ELA Negative 06/10/20 06/10/20 06/11/20 Range/Units 16:11 18:58 08:11 WBC (4.0-11.0) K/uL RBC (3.80-5.80) M/uL Hgb (11.5-16.5) g/dL Hct (37.0-47.0) % MCV (76-96) fL MCH (27.0-32.0) pg MCHC (31.0-35.0) g/dL RDW (11.0-16.0) % Plt Count (150-500) K/uL MPV (6.0-10.0) fL Neut % (Auto) (45.0-70.0) % Lymph % (Auto) (20.0-40.0) % [place] % (Auto) (3.0-10.0) % Eos % (Auto) (1.0-5.0) % Baso % (Auto) (0.0-0.5) % Neut # (Auto) (2.00-7.50) K/uL Lymph # (Auto) (1.50-4.00) K/uL [place] # (Auto) (0.20-0.80) K/uL Eos # (Auto) (0.04-0.40) K/uL Baso # (Auto) (0.02-0.10) K/uL D-Dimer, Quantitative (0-400) ng/mL Sodium (136-145) mmol/L Potassium (3.5-5.1) mmol/L Chloride (98-107) mmol/L Carbon Dioxide (21.0-32.0) mmol/L Anion Gap (5.0-15.0) mmol/L BUN (8-26) mg/dL Creatinine (0.55-1.02) mg/dL Est Cr Clr Drug Dosing mL/min Estimated GFR (MDRD) (>60) MLS/MIN BUN/Creatinine Ratio (6-25) Glucose (74-100) mg/dL Lactic Acid 1.7 Cancelled (0.4-2.0) mmol/L Calcium (8.5-10.1) mg/dL Total Bilirubin (0.0-1.0) mg/dL AST (15-37) U/L ALT (12-78) U/L Alkaline Phosphatase (46-116) U/L Troponin I (0.000-0.060) ng/mL B-Natriuretic Peptide (0-450) pg/mL Total Protein (6.4-8.2) g/dL Albumin (3.4-5.0) g/dL Globulin (2.2-4.2) g/dL Albumin/Globulin Ratio (0.8-2.0) Urine Color Yellow Urine Appearance Cloudy (CLEAR) Urine pH 5.5 (5.0-8.0) Ur Specific [place] 1.015 (1.003-1.030) Urine Protein Negative (NEGATIVE) mg/dL Urine Glucose (UA) Negative (NEGATIVE) mg/dL Urine Ketones Negative (NEGATIVE) mg/dL Urine Occult Blood Trace-intact H (NEGATIVE) Urine Nitrite Negative (NEGATIVE) Urine Bilirubin Negative (NEGATIVE) Urine Urobilinogen 0.2 (0.2-1.0) E.U./dL Ur Leukocyte Esterase Small H (NEGATIVE) Urine RBC 0-5 H /HPF Urine WBC 5-10 H /HPF Ur Squamous Epith Cells Many /HPF Urine Bacteria Moderate H /HPF SARS CoV-2 RNA Rapid ELA 06/11/20 06/11/20 06/11/20 Range/Units 08:20 08:20 08:20 WBC 11.7 H (4.0-11.0) K/uL RBC 4.20 (3.80-5.80) M/uL Hgb 11.4 L (11.5-16.5) g/dL Hct 37.8 (37.0-47.0) % MCV 90 (76-96) fL MCH 27.1 (27.0-32.0) pg MCHC 30.2 L (31.0-35.0) g/dL RDW 15.2 (11.0-16.0) % Plt Count 291 (150-500) K/uL MPV 8.7 (6.0-10.0) fL Neut % (Auto) 90.2 H (45.0-70.0) % Lymph % (Auto) 5.2 L (20.0-40.0) % [place] % (Auto) 4.5 (3.0-10.0) % Eos % (Auto) 0.0 L (1.0-5.0) % Baso % (Auto) 0.1 (0.0-0.5) % Neut # (Auto) 10.51 H (2.00-7.50) K/uL Lymph # (Auto) 0.61 L (1.50-4.00) K/uL [place] # (Auto) 0.52 (0.20-0.80) K/uL Eos # (Auto) 0.00 L (0.04-0.40) K/uL Baso # (Auto) 0.01 L (0.02-0.10) K/uL D-Dimer, Quantitative 1180 H (0-400) ng/mL Sodium 138 (136-145) mmol/L Potassium 4.1 (3.5-5.1) mmol/L Chloride 100 (98-107) mmol/L Carbon Dioxide 29.3 (21.0-32.0) mmol/L Anion Gap 12.8 (5.0-15.0) mmol/L BUN 23 (8-26) mg/dL Creatinine 1.19 H D (0.55-1.02) mg/dL Est Cr Clr Drug Dosing 26.34 mL/min Estimated GFR (MDRD) 43 L (>60) MLS/MIN BUN/Creatinine Ratio 19.3 (6-25) Glucose 127 H (74-100) mg/dL Lactic Acid (0.4-2.0) mmol/L Calcium 8.9 (8.5-10.1) mg/dL Total Bilirubin 0.3 D (0.0-1.0) mg/dL AST 15 (15-37) U/L ALT 12 (12-78) U/L Alkaline Phosphatase 98 (46-116) U/L Troponin I < 0.017 D (0.000-0.060) ng/mL B-Natriuretic Peptide 2620 H D (0-450) pg/mL Total Protein 8.0 (6.4-8.2) g/dL Albumin 3.4 (3.4-5.0) g/dL Globulin 4.6 H (2.2-4.2) g/dL Albumin/Globulin Ratio 0.7 L (0.8-2.0) Urine Color Urine Appearance (CLEAR) Urine pH (5.0-8.0) Ur Specific [place] (1.003-1.030) Urine Protein (NEGATIVE) mg/dL Urine Glucose (UA) (NEGATIVE) mg/dL Urine Ketones (NEGATIVE) mg/dL Urine Occult Blood (NEGATIVE) Urine Nitrite (NEGATIVE) Urine Bilirubin (NEGATIVE) Urine Urobilinogen (0.2-1.0) E.U./dL Ur Leukocyte Esterase (NEGATIVE) Urine RBC /HPF Urine WBC /HPF Ur Squamous Epith Cells /HPF Urine Bacteria /HPF SARS CoV-2 RNA Rapid ELA 06/11/20 Range/Units 08:20 WBC (4.0-11.0) K/uL RBC (3.80-5.80) M/uL Hgb (11.5-16.5) g/dL Hct (37.0-47.0) % MCV (76-96) fL MCH (27.0-32.0) pg MCHC (31.0-35.0) g/dL RDW (11.0-16.0) % Plt Count (150-500) K/uL MPV (6.0-10.0) fL Neut % (Auto) (45.0-70.0) % Lymph % (Auto) (20.0-40.0) % [place] % (Auto) (3.0-10.0) % Eos % (Auto) (1.0-5.0) % Baso % (Auto) (0.0-0.5) % Neut # (Auto) (2.00-7.50) K/uL Lymph # (Auto) (1.50-4.00) K/uL [place] # (Auto) (0.20-0.80) K/uL Eos # (Auto) (0.04-0.40) K/uL Baso # (Auto) (0.02-0.10) K/uL D-Dimer, Quantitative (0-400) ng/mL Sodium (136-145) mmol/L Potassium (3.5-5.1) mmol/L Chloride (98-107) mmol/L Carbon Dioxide (21.0-32.0) mmol/L Anion Gap (5.0-15.0) mmol/L BUN (8-26) mg/dL Creatinine (0.55-1.02) mg/dL Est Cr Clr Drug Dosing mL/min Estimated GFR (MDRD) (>60) MLS/MIN BUN/Creatinine Ratio (6-25) Glucose (74-100) mg/dL Lactic Acid 2.3 H (0.4-2.0) mmol/L Calcium (8.5-10.1) mg/dL Total Bilirubin (0.0-1.0) mg/dL AST (15-37) U/L ALT (12-78) U/L Alkaline Phosphatase (46-116) U/L Troponin I (0.000-0.060) ng/mL B-Natriuretic Peptide (0-450) pg/mL Total Protein (6.4-8.2) g/dL Albumin (3.4-5.0) g/dL Globulin (2.2-4.2) g/dL Albumin/Globulin Ratio (0.8-2.0) Urine Color Urine Appearance (CLEAR) Urine pH (5.0-8.0) Ur Specific [place] (1.003-1.030) Urine Protein (NEGATIVE) mg/dL Urine Glucose (UA) (NEGATIVE) mg/dL Urine Ketones (NEGATIVE) mg/dL Urine Occult Blood (NEGATIVE) Urine Nitrite (NEGATIVE) Urine Bilirubin (NEGATIVE) Urine Urobilinogen (0.2-1.0) E.U./dL Ur Leukocyte Esterase (NEGATIVE) Urine RBC /HPF Urine WBC /HPF Ur Squamous Epith Cells /HPF Urine Bacteria /HPF SARS CoV-2 RNA Rapid ELA Med Orders - Current: Current Medications Acetaminophen (Tylenol Arthritis Pain) 650 mg PO BID PRN PRN Reason: Pain Last Admin: 06/10/20 21:30 Dose: 650 mg Documented by: Albuterol/Ipratropium (Duoneb 3.0-0.5 Mg/3 Ml) 3 ml NEB Q4H PRN PRN Reason: Congestion Aspirin (Halfprin) 81 mg PO DAILY [facility] Last Admin: 06/11/20 09:12 Dose: 81 mg Documented by: Atenolol (Tenormin) 12.5 mg PO DAILY [facility] Last Admin: 06/11/20 09:15 Dose: 12.5 mg Documented by: Atorvastatin Calcium (Lipitor) 10 mg PO BEDTIME [facility] Calcium Carbonate/Glycine (Calcium Carbonate) 600 mg PO DAILY [facility] Last Admin: 06/11/20 09:12 Dose: 600 mg Documented by: Levofloxacin/Dextrose 750 mg/ (Levofloxacin/Dextrose) 300 mls @ 100 mls/hr IV Q24H [facility] Iopamidol (Isovue-300 (61%)) 100 ml IV . DIRECTED [facility] Methylprednisolone Sodium Succinate (Solu-Medrol) 40 mg IVPUSH DAILY [facility] Last Admin: 06/11/20 09:16 Dose: 40 mg Documented by: Advair Diskus 100-50 (InhalerOwn Med) 1 each INH BID [facility] Last Admin: 06/11/20 09:13 Dose: 1 each Documented by: Pantoprazole Sodium (Protonix) 40 mg PO ACBREAKFAST [facility] Last Admin: 06/11/20 10:10 Dose: 40 mg Documented by: Tiotropium [place] (Spiriva Handihaler) 18 mcg INH DAILY [facility] Last Admin: 06/11/20 10:37 Dose: Not Given Documented by: Discontinued Medications Albuterol/Ipratropium (Duoneb 3.0-0.5 Mg/3 Ml) 3 ml NEB ONETIME ONE Stop: 06/10/20 15:03 Last Admin: 06/10/20 15:08 Dose: 3 ml Documented by: Atenolol (Tenormin) 25 mg PO DAILY [facility] Furosemide (Lasix) 20 mg IVPUSH DAILY [facility] Last Admin: 06/10/20 16:57 Dose: 20 mg Documented by: Furosemide (Lasix) Confirm Administered Dose 40 mg .ROUTE .STK-MED ONE Stop: 06/10/20 17:04 Last Admin: 06/10/20 16:56 Dose: Not Given Documented by: Levofloxacin/Dextrose 750 mg/ (Levofloxacin/Dextrose) 300 mls @ 100 mls/hr IV ONETIME ONE Stop: 06/10/20 19:33 Last Admin: 06/10/20 16:43 Dose: 100 mls/hr Documented by: Levofloxacin/Dextrose (Levaquin In D5w 750 Mg/150 Ml) Confirm Administered Dose 150 mls @ as directed IV .STK-MED ONE Stop: 06/10/20 16:40 Last Admin: 06/10/20 16:44 Dose: Not Given Documented by: Sodium Chloride (Normal Saline) 1,000 mls @ 75 mls/hr IV ASDIRECTED [facility] Stop: 06/11/20 09:01 Last Admin: 06/10/20 19:08 Dose: 75 mls/hr Documented by: Methylprednisolone Sodium Succinate (Solu-Medrol) 40 mg IVPUSH ONETIME ONE Stop: 06/10/20 16:20 Last Admin: 06/10/20 16:31 Dose: 40 mg Documented by: Methylprednisolone Sodium Succinate (Solu-Medrol) Confirm Administered Dose 40 mg .ROUTE .STK-MED ONE Stop: 06/10/20 16:34 Last Admin: 06/10/20 16:32 Dose: Not Given Documented by: Mometasone Furoate/Formoterol Fumar (Dulera 100-5 Mcg) 2 puff IH BID [facility] Last Admin: 06/10/20 22:40 Dose: Not Given Documented by: Sodium Chloride (Normal Saline) 50 ml FLUSH ONETIME ONE Stop: 06/10/20 15:26
[2020-06-11] MEDS: Acetaminophen 650 MG Tab.ER PO PRN (19:32)
[2020-06-11] MEDS ORDERED: atorvaSTATin 10 MG Tab PO SCH (20:00)
[2020-06-12] MEDS ORDERED: Furosemide 20 MG Tab PO ONE (08:00)
[2020-06-12] MEDS: Pantoprazole 40 MG Tab.CR PO SCH (08:48)
[2020-06-12] MEDS: Calcium Carbonate 600 MG Tab PO SCH (08:49)
[2020-06-12] MEDS: Aspirin 81 MG Tab.EC PO SCH (08:49)
[2020-06-12] MEDS: Atenolol 25 MG Tab PO SCH (08:54)
[2020-06-12] MEDS: Tiotropium Inhaler 18 MCG Inhalation Powder Cap Kit of 5 INH SCH (08:55)
[2020-06-12 08:57] VITALS: BP 153/76; PULSE 89
[2020-06-12] MEDS: Acetaminophen 650 MG Tab.ER PO PRN (08:59)
[2020-06-12] MEDS: methylPREDNISolone Sodium Succinate 40 MG/1 ML SDV IVPUSH SCH (09:00)
[2020-06-12] MEDS ORDERED: methylPREDNISolone 4 MG Tab 21 Tab/Dosepak PO ONE (09:00)
[2020-06-12] MEDS: ADVAIR INH SCH (09:00)
--- NOTE | 2020-06-12 11:39 | PCM.PN ---
- General Info Date of Service: 06/12/20 Admission Dx/Problem (Free Text): UTI COPD exacerbation Functional Status: Reports: Pain Controlled - Review of Systems General: Reports: No Symptoms HEENT: Reports: No Symptoms Pulmonary: Reports: Other (improved lung sounds since admission, some wheezing noted.) Cardiovascular: Reports: No Symptoms Gastrointestinal: Reports: No Symptoms Genitourinary: Reports: No Symptoms Musculoskeletal: Reports: No Symptoms Skin: Reports: No Symptoms Neurological: Reports: No Symptoms Psychiatric: Reports: No Symptoms - Patient Data Vitals - Most Recent: Last Vital Signs Temp 36.6 C 06/12/20 08:00 Pulse 89 06/12/20 08:54 Resp 18 06/12/20 08:00 BP 153/76 H 06/12/20 08:54 Pulse Ox 94 L 06/12/20 08:00 Weight - Most Recent: 75.977 kg I&O - Last 24 Hours: Intake & Output 06/11/20 06/12/20 06/12/20 22:59 06:59 14:59 Intake Total 950 Balance 950 Lab Results Last 24 Hours: Laboratory Results - last 24 hr 06/11/20 06/12/20 06/12/20 Range/Units 16:00 08:10 08:15 WBC 15.1 H D (4.0-11.0) K/uL RBC 4.21 (3.80-5.80) M/uL Hgb 11.5 (11.5-16.5) g/dL Hct 38.3 (37.0-47.0) % MCV 91 (76-96) fL MCH 27.3 (27.0-32.0) pg MCHC 30.0 L (31.0-35.0) g/dL RDW 15.5 (11.0-16.0) % Plt Count 323 (150-500) K/uL MPV 8.7 (6.0-10.0) fL Neut % (Auto) 83.7 H (45.0-70.0) % Lymph % (Auto) 8.0 L (20.0-40.0) % [place] % (Auto) 7.9 (3.0-10.0) % Eos % (Auto) 0.3 L (1.0-5.0) % Baso % (Auto) 0.1 (0.0-0.5) % Neut # (Auto) 12.66 H (2.00-7.50) K/uL Lymph # (Auto) 1.21 L (1.50-4.00) K/uL [place] # (Auto) 1.19 H (0.20-0.80) K/uL Eos # (Auto) 0.04 (0.04-0.40) K/uL Baso # (Auto) 0.01 L (0.02-0.10) K/uL D-Dimer, Quantitative 910 H (0-400) ng/mL Sodium (136-145) mmol/L Potassium (3.5-5.1) mmol/L Chloride (98-107) mmol/L Carbon Dioxide (21.0-32.0) mmol/L Anion Gap (5.0-15.0) mmol/L BUN (8-26) mg/dL Creatinine (0.55-1.02) mg/dL Est Cr Clr Drug Dosing mL/min Estimated GFR (MDRD) (>60) MLS/MIN BUN/Creatinine Ratio (6-25) Glucose (74-100) mg/dL Lactic Acid 2.0 (0.4-2.0) mmol/L Calcium (8.5-10.1) mg/dL Total Bilirubin (0.0-1.0) mg/dL AST (15-37) U/L ALT (12-78) U/L Alkaline Phosphatase (46-116) U/L C-Reactive Protein (0.0-3.0) mg/L Total Protein (6.4-8.2) g/dL Albumin (3.4-5.0) g/dL Globulin (2.2-4.2) g/dL Albumin/Globulin Ratio (0.8-2.0) 06/12/20 06/12/20 06/12/20 Range/Units 10:20 10:20 10:20 WBC (4.0-11.0) K/uL RBC (3.80-5.80) M/uL Hgb (11.5-16.5) g/dL Hct (37.0-47.0) % MCV (76-96) fL MCH (27.0-32.0) pg MCHC (31.0-35.0) g/dL RDW (11.0-16.0) % Plt Count (150-500) K/uL MPV (6.0-10.0) fL Neut % (Auto) (45.0-70.0) % Lymph % (Auto) (20.0-40.0) % [place] % (Auto) (3.0-10.0) % Eos % (Auto) (1.0-5.0) % Baso % (Auto) (0.0-0.5) % Neut # (Auto) (2.00-7.50) K/uL Lymph # (Auto) (1.50-4.00) K/uL [place] # (Auto) (0.20-0.80) K/uL Eos # (Auto) (0.04-0.40) K/uL Baso # (Auto) (0.02-0.10) K/uL D-Dimer, Quantitative (0-400) ng/mL Sodium 140 (136-145) mmol/L Potassium 3.9 (3.5-5.1) mmol/L Chloride 103 (98-107) mmol/L Carbon Dioxide 28.2 (21.0-32.0) mmol/L Anion Gap 12.7 (5.0-15.0) mmol/L BUN 27 H (8-26) mg/dL Creatinine 1.18 H (0.55-1.02) mg/dL Est Cr Clr Drug Dosing 26.57 mL/min Estimated GFR (MDRD) 43 L (>60) MLS/MIN BUN/Creatinine Ratio 22.9 (6-25) Glucose 104 H (74-100) mg/dL Lactic Acid 2.8 H (0.4-2.0) mmol/L Calcium 9.0 (8.5-10.1) mg/dL Total Bilirubin 0.2 D (0.0-1.0) mg/dL AST 16 (15-37) U/L ALT 12 (12-78) U/L Alkaline Phosphatase 96 (46-116) U/L C-Reactive Protein 55.7 H (0.0-3.0) mg/L Total Protein 7.7 (6.4-8.2) g/dL Albumin 3.2 L (3.4-5.0) g/dL Globulin 4.5 H (2.2-4.2) g/dL Albumin/Globulin Ratio 0.7 L (0.8-2.0) Med Orders - Current: Current Medications Acetaminophen (Acetaminophen 650 Mg Tab.Er) 650 mg PO BID PRN PRN Reason: Pain Last Admin: 06/12/20 08:59 Dose: 650 mg Documented by: Albuterol/Ipratropium (Duoneb 3.0-0.5 Mg/3 Ml) 3 ml NEB Q4H PRN PRN Reason: Congestion Aspirin (Aspirin 81 Mg Tab.Ec) 81 mg PO DAILY [facility] Last Admin: 06/12/20 08:49 Dose: 81 mg Documented by: Atenolol (Atenolol 25 Mg Tab) 12.5 mg PO DAILY [facility] Last Admin: 06/12/20 08:54 Dose: 12.5 mg Documented by: Atorvastatin Calcium (Lipitor) 10 mg PO BEDTIME [facility] Last Admin: 06/11/20 19:31 Dose: 10 mg Documented by: Calcium Carbonate/Glycine (Calcium Carbonate 600 Mg Tab) 600 mg PO DAILY [facility] Last Admin: 06/12/20 08:49 Dose: 600 mg Documented by: Iopamidol (Isovue-300 (61%)) 100 ml IV . DIRECTED [facility] Advair Diskus 100-50 (InhalerOwn Med) 1 each INH BID [facility] Last Admin: 06/12/20 09:00 Dose: 1 each Documented by: Pantoprazole Sodium (Pantoprazole 40 Mg Tab.Cr) 40 mg PO ACBREAKFAST [facility] Last Admin: 06/12/20 08:48 Dose: 40 mg Documented by: Tiotropium [place] (Spiriva Handihaler) 18 mcg INH DAILY [facility] Last Admin: 06/12/20 08:55 Dose: 18 mcg Documented by: Discontinued Medications Albuterol/Ipratropium (Duoneb 3.0-0.5 Mg/3 Ml) 3 ml NEB ONETIME ONE Stop: 06/10/20 15:03 Last Admin: 06/10/20 15:08 Dose: 3 ml Documented by: Atenolol (Tenormin) 25 mg PO DAILY [facility] Furosemide (Lasix) 20 mg IVPUSH DAILY [facility] Last Admin: 06/10/20 16:57 Dose: 20 mg Documented by: Furosemide (Lasix) Confirm Administered Dose 40 mg .ROUTE .STK-MED ONE Stop: 06/10/20 17:04 Last Admin: 06/10/20 16:56 Dose: Not Given Documented by: Furosemide (Furosemide 20 Mg Tab) 20 mg PO ONETIME ONE Stop: 06/12/20 08:01 Last Admin: 06/12/20 08:49 Dose: 20 mg Documented by: Levofloxacin/Dextrose 750 mg/ (Levofloxacin/Dextrose) 300 mls @ 100 mls/hr IV ONETIME ONE Stop: 06/10/20 19:33 Last Admin: 06/10/20 16:43 Dose: 100 mls/hr Documented by: Levofloxacin/Dextrose (Levaquin In D5w 750 Mg/150 Ml) Confirm Administered Dose 150 mls @ as directed IV .STK-MED ONE Stop: 06/10/20 16:40 Last Admin: 06/10/20 16:44 Dose: Not Given Documented by: Sodium Chloride (Normal Saline) 1,000 mls @ 75 mls/hr IV ASDIRECTED [facility] Stop: 06/11/20 09:01 Last Admin: 06/10/20 19:08 Dose: 75 mls/hr Documented by: Methylprednisolone (Methylprednisolone 4 Mg Tab 21 Tab/Dosepak) 8 mg PO ONETIME ONE; Protocol Stop: 06/12/20 09:01 Last Admin: 06/12/20 09:00 Dose: 8 mg Documented by: Methylprednisolone Sodium Succinate (Solu-Medrol) 40 mg IVPUSH ONETIME ONE Stop: 06/10/20 16:20 Last Admin: 06/10/20 16:31 Dose: 40 mg Documented by: Methylprednisolone Sodium Succinate (Solu-Medrol) Confirm Administered Dose 40 mg .ROUTE .STK-MED ONE Stop: 06/10/20 16:34 Last Admin: 06/10/20 16:32 Dose: Not Given Documented by: Methylprednisolone Sodium Succinate (Methylprednisolone Sodium Succinate 40 Mg/1 Ml Sdv) 40 mg IVPUSH DAILY [facility] Last Admin: 06/12/20 09:00 Dose: Not Given Documented by: Mometasone Furoate/Formoterol Fumar (Dulera 100-5 Mcg) 2 puff IH BID [facility] Last Admin: 06/10/20 22:40 Dose: Not Given Documented by: Sodium Chloride (Normal Saline) 50 ml FLUSH ONETIME ONE Stop: 06/10/20 15:26 Last Admin: 06/12/20 07:40 Dose: Not Given Documented by: Comments:: Patient has improved greatly upon admission, lung sounds have improved with minimal wheezing. She will be ready for DC today. - Exam General: Alert, Oriented, Cooperative, No Acute Distress HEENT: Pupils Equal, Pupils Reactive Neck: Supple, Trachea Midline Lungs: Clear to Auscultation, Wheezing Cardiovascular: Regular Rate, Regular Rhythm GI/Abdominal Exam: Normal Bowel Sounds, Soft, Non-Tender Extremities: Normal Inspection, Normal Range of Motion Skin: Warm, Dry, Intact Neurological: No New Focal Deficit Psy/Mental Status: Alert, Normal Affect, Normal Mood - Patient Data Lab Results Last 24 hrs: Laboratory Results - last 24 hr 06/11/20 06/12/20 06/12/20 Range/Units 16:00 08:10 08:15 WBC 15.1 H D (4.0-11.0) K/uL RBC 4.21 (3.80-5.80) M/uL Hgb 11.5 (11.5-16.5) g/dL Hct 38.3 (37.0-47.0) % MCV 91 (76-96) fL MCH 27.3 (27.0-32.0) pg MCHC 30.0 L (31.0-35.0) g/dL RDW 15.5 (11.0-16.0) % Plt Count 323 (150-500) K/uL MPV 8.7 (6.0-10.0) fL Neut % (Auto) 83.7 H (45.0-70.0) % Lymph % (Auto) 8.0 L (20.0-40.0) % [place] % (Auto) 7.9 (3.0-10.0) % Eos % (Auto) 0.3 L (1.0-5.0) % Baso % (Auto) 0.1 (0.0-0.5) % Neut # (Auto) 12.66 H (2.00-7.50) K/uL Lymph # (Auto) 1.21 L (1.50-4.00) K/uL [place] # (Auto) 1.19 H (0.20-0.80) K/uL Eos # (Auto) 0.04 (0.04-0.40) K/uL Baso # (Auto) 0.01 L (0.02-0.10) K/uL D-Dimer, Quantitative 910 H (0-400) ng/mL Sodium (136-145) mmol/L Potassium (3.5-5.1) mmol/L Chloride (98-107) mmol/L Carbon Dioxide (21.0-32.0) mmol/L Anion Gap (5.0-15.0) mmol/L BUN (8-26) mg/dL Creatinine (0.55-1.02) mg/dL Est Cr Clr Drug Dosing mL/min Estimated GFR (MDRD) (>60) MLS/MIN BUN/Creatinine Ratio (6-25) Glucose (74-100) mg/dL Lactic Acid 2.0 (0.4-2.0) mmol/L Calcium (8.5-10.1) mg/dL Total Bilirubin (0.0-1.0) mg/dL AST (15-37) U/L ALT (12-78) U/L Alkaline Phosphatase (46-116) U/L C-Reactive Protein (0.0-3.0) mg/L Total Protein (6.4-8.2) g/dL Albumin (3.4-5.0) g/dL Globulin (2.2-4.2) g/dL Albumin/Globulin Ratio (0.8-2.0) 06/12/20 06/12/20 06/12/20 Range/Units 10:20 10:20 10:20 WBC (4.0-11.0) K/uL RBC (3.80-5.80) M/uL Hgb (11.5-16.5) g/dL Hct (37.0-47.0) % MCV (76-96) fL MCH (27.0-32.0) pg MCHC (31.0-35.0) g/dL RDW (11.0-16.0) % Plt Count (150-500) K/uL MPV (6.0-10.0) fL Neut % (Auto) (45.0-70.0) % Lymph % (Auto) (20.0-40.0) % [place] % (Auto) (3.0-10.0) % Eos % (Auto) (1.0-5.0) % Baso % (Auto) (0.0-0.5) % Neut # (Auto) (2.00-7.50) K/uL Lymph # (Auto) (1.50-4.00) K/uL [place] # (Auto) (0.20-0.80) K/uL Eos # (Auto) (0.04-0.40) K/uL Baso # (Auto) (0.02-0.10) K/uL D-Dimer, Quantitative (0-400) ng/mL Sodium 140 (136-145) mmol/L Potassium 3.9 (3.5-5.1) mmol/L Chloride 103 (98-107) mmol/L Carbon Dioxide 28.2 (21.0-32.0) mmol/L Anion Gap 12.7 (5.0-15.0) mmol/L BUN 27 H (8-26) mg/dL Creatinine 1.18 H (0.55-1.02) mg/dL Est Cr Clr Drug Dosing 26.57 mL/min Estimated GFR (MDRD) 43 L (>60) MLS/MIN BUN/Creatinine Ratio 22.9 (6-25) Glucose 104 H (74-100) mg/dL Lactic Acid 2.8 H (0.4-2.0) mmol/L Calcium 9.0 (8.5-10.1) mg/dL Total Bilirubin 0.2 D (0.0-1.0) mg/dL AST 16 (15-37) U/L ALT 12 (12-78) U/L Alkaline Phosphatase 96 (46-116) U/L C-Reactive Protein 55.7 H (0.0-3.0) mg/L Total Protein 7.7 (6.4-8.2) g/dL Albumin 3.2 L (3.4-5.0) g/dL Globulin 4.5 H (2.2-4.2) g/dL Albumin/Globulin Ratio 0.7 L (0.8-2.0) Result Diagrams: 06/12/20 08:10 06/12/20 10:20 Sepsis Event Note - Evaluation Sepsis Screening Result: No Definite Risk Current Stage of Sepsis: Ruled Out Reason for Ruling Out Sepsis: Based off trending labs and clinical presentation. - Focused Exam Vital Signs: Vital Signs Temp Pulse Pulse Resp BP BP Pulse Ox 06/12/20 08:54 89 153/76 H 06/12/20 08:00 36.6 C 89 18 153/76 H 94 L - Problem List & Annotations (1) Emphysema lung SNOMED Code(s): 95714655 Code(s): J43.9 - EMPHYSEMA, UNSPECIFIED Status: Chronic Priority: Low Current Visit: Yes Qualifiers: Emphysema type: centrilobular Qualified Code(s): J43.2 - Centrilobular emphysema (2) UTI (urinary tract infection) SNOMED Code(s): 10699392 Code(s): N39.0 - URINARY TRACT INFECTION, SITE NOT SPECIFIED Status: Acute Priority: Medium Current Visit: Yes Qualifiers: Urinary tract infection type: acute cystitis - Problem List Review Problem List Initiated/Reviewed/Updated: Yes - My Orders Last 24 Hours: My Active Orders 06/11/20 10:52 Ready for Discharge [RC] PER UNIT ROUTINE 06/11/20 20:00 atorvaSTATin [Lipitor] 10 mg PO BEDTIME 06/12/20 10:52 REFLEX LACTIC ACID YES OR NO [CHEM] Routine 06/12/20 Lunch Heart Healthy Diet [DIET] 06/13/20 16:57 COMPREHENSIVE METABOLIC PN,CMP [CHEM] DAILY - Assessment Assessment:: UTI- Give IM 1 G Rocephin before DC. Then continue w OP therapy Levaquin 750mg PO q 48. - Plan Plan:: Assessment- UTI, chronic emphysema. Plan- UTI- DC on Levaquin 750 q 48hrs PO for 3 days. Increase oral fluids. COPD-Continue back on Advair with Spiriva. NC 3-4L of O2 at home. Medrol dose pack for OP use, started in hospital.
[2020-06-12] MEDS ORDERED: cefTRIAXone 1 GM Vial IM ONE (11:40)
== END 2020-06-12 13:10 ==
LOC: LB.ED 14:11 → LB.MS 17:00 → UNDOADMIN 17:00 → LB.MS 17:00
PROVIDERS: ADMIT Internal Medicine; ATTEND Internal Medicine
DX: J43.2 Centrilobular emphysema (principal); N30.00 Acute cystitis without hematuria; E78.00 Pure hypercholesterolemia, unspecified; I10 Essential (primary) hypertension; I25.10 Atherosclerotic heart disease of native coronary artery without angina pectoris; Z20.822 Contact with and (suspected) exposure to COVID-19; Z88.0 Allergy status to penicillin; Z88.1 Allergy status to other antibiotic agents; Z87.891 Personal history of nicotine dependence; Z87.01 Personal history of pneumonia (recurrent); Z87.39 Personal history of other diseases of the musculoskeletal system and connective tissue; Z79.82 Long term (current) use of aspirin; Z79.899 Other long term (current) drug therapy; Z98.890 Other specified postprocedural states
CPT/HCPCS: 36415; 71046; 71260; 80053; 81001; 83605; 83880; 84484; 85025; 85379; 86140; 87086; 87088; 87186; 93005; 96372; A9270-GY; J0696; J1940; J1956; J2920; J7030; J7509; J7620-GY; U0002

== ENCOUNTER 2020-08-27 09:52 | Emergency (ER) | payer MEDICARE, OTHER ==
[2020-08-27] MEDS ORDERED: Sodium Chloride 0.9% 10 ML Syringe FLUSH PRN (10:13)
--- NOTE | 2020-08-27 10:15 | EDM.PDOC ---
ED HPI GENERAL MEDICAL PROBLEM - General Chief Complaint: Cardiovascular Problem Stated Complaint: SHORTNESS OF BREATH Time Seen by Provider: 08/27/20 10:10 Source of Information: Reports: Patient, [facility] Records History Limitations: Reports: No Limitations - History of Present Illness INITIAL COMMENTS - FREE TEXT/NARRATIVE: patient from the [place] - was brought to the ER due to increasing SOB. no CP or fever. h/o CHF, on lasix. Per nursing report, she 2 weeks ago, her lasix was stopped for unknown reason,. 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 She has been on/off her lasix since, and over the last 3 days, she has been c/o progressive SOB, mainly on exertion. Patient is on chronic O2 use due to COPD. No fever or chills. no abd pain. Mild b/l legs edema. Onset: Gradual Duration: Day(s): (3) Location: Reports: Chest - Related Data Allergies Allergy/AdvReac Type Severity Reaction Status Date / Time amoxicillin Allergy Cannot Verified 06/10/20 14:25 Remember Penicillins Allergy Cannot Verified 06/10/20 14:25 Remember Home Meds: Home Meds Acetaminophen [Tylenol Arthritis] 1 tab PO BID 04/19/16 [History] Aspirin [Kylie Chewable Aspirin] 81 mg PO DAILY 04/19/16 [History] atorvaSTATin [Lipitor] 10 mg PO BEDTIME 04/08/20 [History] Fluticasone/Salmeterol [Advair 100-50] 1 puff IH BID 30 Days #1 diskus 04/10/20 [Rx] Tiotropium [Spiriva HandiHaler] 18 mcg INH DAILY #30 cap 04/10/20 [Rx] Albuterol/Ipratropium [DuoNeb 3.0-0.5 MG/3 ML] 1 vial INH Q4H 06/10/20 [History] Calcium Carbonate [Calcium] 1 tab PO DAILY 06/10/20 [History] Fluticasone Propionate [Flonase] 2 spray INH DAILY 06/10/20 [History] Loratadine [Claritin] 1 tab PO DAILY 06/10/20 [History] Meclizine [Antivert] 12.5 mg PO Q24H PRN 06/10/20 [History] Pantoprazole Sodium [Protonix] 1 tab PO DAILY 06/10/20 [History] atenoloL [Atenolol] 0.5 tab PO DAILY 06/10/20 [History] Furosemide [Lasix] 20 mg PO DAILY #30 tablet 06/11/20 [Rx] levoFLOXacin [Levaquin] 750 mg PO Q48H #3 tab 06/11/20 [Rx] methylPREDNISolone [Medrol Dose Pack] 4 mg PO DAILY #21 dospk 06/11/20 [Rx] Past Medical History HEENT History: Reports: Allergic Rhinitis, Cataract, Impaired Vision, Macular Degeneration Cardiovascular History: Reports: High Cholesterol, Hypertension Other Cardiovascular History: 3cm aortic bulging. Respiratory History: Reports: Asthma, Bronchitis, Recurrent, COPD, Pneumonia, Recurrent Gastrointestinal History: Reports: GERD, Hemorrhoids, Hiatal Hernia Genitourinary History: Reports: UTI, Recurrent [employer] P[employer]ING History: Reports: Musculoskeletal History: Reports: Arthritis, Back Pain, Chronic, Fracture, Osteoarthritis - Infectious Disease History Infectious Disease History: Reports: C-Difficile, Chicken Pox, Measles, Mumps, Shingles - Past Surgical History HEENT Surgical History: Reports: Cataract Surgery, Radiocarotid Ectomy Cardiovascular Surgical History: Reports: Carotid Endarterectomy Respiratory Surgical History: Reports: None GI Surgical History: Reports: Colonoscopy Musculoskeletal Surgical History: Reports: Other (See Below) Other Musculoskeletal Surgeries/Procedures:: PLATE IN RIGHT ANKLE Social & Family History - Family History Family Medical History: No Pertinent Family History OBGYN: Reports: None Neurological: Reports: None Psychiatric: Reports: None Endocrine/Metabolic: Reports: None Hematologic: Reports: None Oncologic: Reports: Breast - Caffeine Use Caffeine Use: Reports: Coffee ED ROS GENERAL - Review of Systems Review Of Systems: See Below Constitutional: Reports: No Symptoms. Denies: Fever, Chills HEENT: Reports: No Symptoms Respiratory: Reports: Shortness of Breath Cardiovascular: Reports: Dyspnea on Exertion GI/Abdominal: Reports: No Symptoms : Reports: No Symptoms Musculoskeletal: Reports: No Symptoms Skin: Reports: No Symptoms Neurological: Reports: No Symptoms Psychiatric: Reports: No Symptoms ED EXAM, GENERAL - Physical Exam Exam: See Below Exam Limited By: No Limitations General Appearance: Alert, WD/WN, No Apparent Distress Eye Exam: Bilateral Eye: EOMI Head: Atraumatic Respiratory/Chest: No Respiratory Distress, Normal Breath Sounds, No Accessory Muscle Use, Chest Non-Tender, Rales (b/l basal fine rales) Cardiovascular: Normal Peripheral Pulses, Regular Rate, Rhythm GI/Abdominal: Normal Bowel Sounds Back Exam: Normal Inspection Extremities: Normal Inspection Neurological: Alert, Oriented, No Motor/Sensory Deficits #1 Interpretation EKG Date: 08/27/20 Rhythm: NSR [place]: Normal P-Wave: Present QRS: Normal ST-T: Normal Course - Vital Signs Last Recorded V/S: Last Vital Signs Temp 36.7 C 08/27/20 10:15 Pulse 77 08/27/20 11:53 Resp 22 H 08/27/20 11:53 BP 106/52 L 08/27/20 10:15 Pulse Ox 95 08/27/20 11:53 - Orders/Labs/Meds Orders: Active Orders 24 hr Category Date Time Status EKG Documentation Completion [RC] ASDIRECTED Care 08/27/20 10:13 Active Chest 1V Frontal [CR] Stat Exams 08/27/20 10:13 Taken Sodium Chloride 0.9% [Saline Flush] Med 08/27/20 10:13 Active 10 ml FLUSH ASDIRECTED PRN Saline Lock Insert [OM.PC] Routine Oth 08/27/20 10:13 Ordered EKG 12 Lead [EK] Routine Ther 08/27/20 10:13 Ordered Medication Orders Sodium Chloride (Sodium Chloride 0.9% 10 Ml Syringe) 10 ml FLUSH ASDIRECTED PRN PRN Reason: Keep Vein Open Labs: Laboratory Tests 08/27/20 08/27/20 Range/Units 10:20 10:20 WBC 9.1 D (4.0-11.0) K/uL RBC 4.19 (3.80-5.80) M/uL Hgb 11.3 L (11.5-16.5) g/dL Hct 37.8 (37.0-47.0) % MCV 90 (76-96) fL MCH 27.0 (27.0-32.0) pg MCHC 29.9 L (31.0-35.0) g/dL RDW 17.7 H (11.0-16.0) % Plt Count 302 (150-500) K/uL MPV 8.5 (6.0-10.0) fL Sodium 140 (136-145) mmol/L Potassium 5.1 (3.5-5.1) mmol/L Chloride 102 (98-107) mmol/L Carbon Dioxide 27.0 (21.0-32.0) mmol/L Anion Gap 16.1 H (5.0-15.0) mmol/L BUN 25 (8-26) mg/dL Creatinine 1.23 H D (0.55-1.02) mg/dL Est Cr Clr Drug Dosing TNP Estimated GFR (MDRD) 41 L (>60) MLS/MIN BUN/Creatinine Ratio 20.3 (6-25) Glucose 124 H (74-100) mg/dL Calcium 9.0 (8.5-10.1) mg/dL Troponin I < 0.017 (0.000-0.060) ng/mL B-Natriuretic Peptide 8354 H D (0-450) pg/mL Meds: Medications Generic Name Dose Route Start Last Admin Trade Name Freq PRN Reason Stop Dose Admin Sodium Chloride 10 ml 08/27/20 10:13 Sodium Chloride 0.9% 10 Ml Syringe FLUSH ASDIRECTED PRN Keep Vein Open Discontinued Medications Generic Name Dose Route Start Last Admin Trade Name Freq PRN Reason Stop Dose Admin Furosemide 20 mg 08/27/20 10:57 08/27/20 11:10 Furosemide 40 Mg/4 Ml Vial IVPUSH 08/27/20 10:58 20 mg NOW ONE Administration - Re-Assessments/Exams Free Text/Narrative Re-Assessment/Exam: vitals WNL CXR - no infiltrates, but mild perihilar congestion. labs - no leukocytosis, but significant for elevation in BNP. normal trop IV lasix 20mg was given - patient has a large UOP. Reports that she is breathing easier than before, No increase in O2 needs. Departure - Departure Time of Disposition: 12:45 Disposition: Home, Self-Care 01 Condition: Good Clinical Impression: Volume overload state of heart Pulmonary edema Qualifiers: Chronicity: acute Qualified Code(s): J81.0 - Acute pulmonary edema Forms: ED Department Discharge Sepsis Event Note (ED) - Focused Exam Vital Signs: Vital Signs Temp Pulse Resp BP Pulse Ox 08/27/20 11:53 77 22 H 95 08/27/20 10:15 36.7 C 88 20 106/52 L 99 - Problem List & Annotations (1) Pulmonary edema SNOMED Code(s): 86506701 Code(s): J81.1 - CHRONIC PULMONARY EDEMA Status: Acute Priority: Medium Current Visit: Yes Qualifiers: Chronicity: acute Qualified Code(s): J81.0 - Acute pulmonary edema (2) Volume overload state of heart SNOMED Code(s): 22091440 Code(s): E87.79 - OTHER FLUID OVERLOAD Status: Acute Priority: Low Current Visit: Yes - Problem List Review Problem List Initiated/Reviewed/Updated: Yes - My Orders Last 24 Hours: My Active Orders 08/27/20 10:13 EKG Documentation Completion [RC] ASDIRECTED Chest 1V Frontal [CR] Stat Sodium Chloride 0.9% [Saline Flush] 10 ml FLUSH ASDIRECTED PRN Saline Lock Insert [OM.PC] Routine EKG 12 Lead [EK] Routine - Assessment/Plan Last 24 Hours: My Active Orders 08/27/20 10:13 EKG Documentation Completion [RC] ASDIRECTED Chest 1V Frontal [CR] Stat Sodium Chloride 0.9% [Saline Flush] 10 ml FLUSH ASDIRECTED PRN Saline Lock Insert [OM.PC] Routine EKG 12 Lead [EK] Routine Plan: - increase lasix PO to 40mg daily for 3 days, then back to 20mg daily - daily weight check - follow up with the PCP in 5-10 days for recheck up - return to the ER if symptoms got worse or any concerns
[2020-08-27 10:55] VITALS: BP 106/52
[2020-08-27] MEDS: Furosemide 40 MG/4 ML VIAL IVPUSH ONE (11:10)
[2020-08-27 11:54] VITALS: PULSE 77
--- NOTE | 2020-08-27 18:46 | CR ---
DATE OF SERVICE: CLINICAL DATA: SOB AP CHEST: Comparison is made to a prior exam dated 11 June 2020. The heart size is stable. There is calcification of the aortic arch. There is a gas containing mass posterior to the heart consistent with a large hiatal hernia. There is persistent pulmonary vascular congestion and mild interstitial edema in both lungs consistent with congestive failure. There is a linear density in the right lung base consistent with linear atelectasis or fibrosis. The lungs are otherwise clear. No pneumothorax. No pleural effusions. [id number] MTDD
== END 2020-08-27 12:45 | disposition home or self-care (01) ==
LOC: LB.ED 09:52
DX: E87.70 Fluid overload, unspecified (principal); J81.0 Acute pulmonary edema; E78.00 Pure hypercholesterolemia, unspecified; I10 Essential (primary) hypertension; J44.9 Chronic obstructive pulmonary disease, unspecified; K21.9 Gastro-esophageal reflux disease without esophagitis; M19.90 Unspecified osteoarthritis, unspecified site; Z88.0 Allergy status to penicillin; Z79.82 Long term (current) use of aspirin; Z79.899 Other long term (current) drug therapy
CPT/HCPCS: 36415; 71045; 80048; 83880; 84484; 85027; 93005; 96374; 99285; J1940; 99283

== ENCOUNTER 2020-10-08 11:52 | Emergency (ER) | payer MEDICARE, OTHER ==
[2020-10-08] MEDS ORDERED: Sodium Chloride 0.9% 10 ML Syringe FLUSH PRN (12:00)
[2020-10-08] MEDS ORDERED: Albuterol 0.083% 2.5 MG/3 ML Neb Soln NEB ONE ×2 (12:01→12:48)
--- NOTE | 2020-10-08 12:01 | EDM.PDOC ---
ED HPI GENERAL MEDICAL PROBLEM - General Chief Complaint: Cardiovascular Problem Stated Complaint: SHORT OF BREATH Time Seen by Provider: 10/08/20 12:01 Source of Information: Reports: Patient History Limitations: Reports: No Limitations - History of Present Illness INITIAL COMMENTS - FREE TEXT/NARRATIVE: patient with a h/o end stage COPD and CHF - on continuos o2 use 5 lit nc, who presented to the ER with a c/o SOB. no fever or chills. no CP. Reports it started this morning and didn't improve with neb treatment. no abd pain or GI symptoms. Her O2 at the HI was mid 80's. - Related Data Allergies Allergy/AdvReac Type Severity Reaction Status Date / Time amoxicillin Allergy Cannot Verified 06/10/20 14:25 Remember Penicillins Allergy Cannot Verified 06/10/20 14:25 Remember Home Meds: Home Meds Acetaminophen [Tylenol Arthritis] 1 tab PO BID 04/19/16 [History] Aspirin [Kylie Chewable Aspirin] 81 mg PO DAILY 04/19/16 [History] atorvaSTATin [Lipitor] 10 mg PO BEDTIME 04/08/20 [History] Fluticasone/Salmeterol [Advair 100-50] 1 puff IH BID 30 Days #1 diskus 04/10/20 [Rx] Tiotropium [Spiriva HandiHaler] 18 mcg INH DAILY #30 cap 04/10/20 [Rx] Albuterol/Ipratropium [DuoNeb 3.0-0.5 MG/3 ML] 1 vial INH Q4H 06/10/20 [History] Calcium Carbonate [Calcium] 1 tab PO DAILY 06/10/20 [History] Fluticasone Propionate [Flonase] 2 spray INH DAILY 06/10/20 [History] Loratadine [Claritin] 1 tab PO DAILY 06/10/20 [History] Meclizine [Antivert] 12.5 mg PO Q24H PRN 06/10/20 [History] Pantoprazole Sodium [Protonix] 1 tab PO DAILY 06/10/20 [History] atenoloL [Atenolol] 0.5 tab PO DAILY 06/10/20 [History] Furosemide [Lasix] 20 mg PO DAILY #30 tablet 06/11/20 [Rx] levoFLOXacin [Levaquin] 750 mg PO Q48H #3 tab 06/11/20 [Rx] methylPREDNISolone [Medrol Dose Pack] 4 mg PO DAILY #21 dospk 06/11/20 [Rx] Past Medical History HEENT History: Reports: Allergic Rhinitis, Cataract, Impaired Vision, Macular Degeneration Cardiovascular History: Reports: Heart Failure, High Cholesterol, Hypertension Other Cardiovascular History: 3cm aortic bulging. 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: Musculoskeletal History: Reports: Arthritis, Back Pain, Chronic, Fracture, Osteoarthritis - Infectious Disease History Infectious Disease History: Reports: C-Difficile, Chicken Pox, Measles, Mumps, Shingles - Past Surgical History HEENT Surgical History: Reports: Cataract Surgery, Radiocarotid Ectomy Cardiovascular Surgical History: Reports: Carotid Endarterectomy Respiratory Surgical History: Reports: None GI Surgical History: Reports: Colonoscopy Musculoskeletal Surgical History: Reports: Other (See Below) Other Musculoskeletal Surgeries/Procedures:: PLATE IN RIGHT ANKLE Social & Family History - Family History Family Medical History: No Pertinent Family History OBGYN: Reports: None Neurological: Reports: None Psychiatric: Reports: None Endocrine/Metabolic: Reports: None Hematologic: Reports: None Oncologic: Reports: Breast - Caffeine Use Caffeine Use: Reports: Coffee ED ROS GENERAL - Review of Systems Review Of Systems: See Below Constitutional: Reports: No Symptoms HEENT: Reports: No Symptoms Respiratory: Reports: Shortness of Breath Cardiovascular: Reports: No Symptoms GI/Abdominal: Reports: No Symptoms : Reports: No Symptoms Musculoskeletal: Reports: No Symptoms Skin: Reports: No Symptoms Neurological: Reports: No Symptoms ED EXAM, GENERAL - Physical Exam Exam: See Below Exam Limited By: No Limitations General Appearance: Alert, WD/WN, Anxious, Mild Distress Eye Exam: Bilateral Eye: EOMI, PERRL Head: Atraumatic Respiratory/Chest: No Respiratory Distress, Lungs Clear, Normal Breath Sounds Cardiovascular: Normal Peripheral Pulses, Tachycardia GI/Abdominal: Normal Bowel Sounds, Soft, Non-Tender Back Exam: Normal Inspection Extremities: Normal Inspection, Normal Range of Motion Neurological: Alert, Oriented, No Motor/Sensory Deficits Skin Exam: Warm, Dry #1 Interpretation EKG Date: 10/08/20 Rhythm: NSR Rate (Beats/Min): 101 [place]: Normal P-Wave: Present QRS: Normal ST-T: Normal QT: Normal Course - Vital Signs Last Recorded V/S: Last Vital Signs Temp Pulse 100 10/08/20 15:53 Resp 18 10/08/20 15:41 BP 128/68 10/08/20 15:53 Pulse Ox 94 L 10/08/20 15:41 - Orders/Labs/Meds Orders: Active Orders 24 hr Category Date Time Status EKG Documentation Completion [RC] ASDIRECTED Care 10/08/20 12:01 Active RT Aerosol Therapy [RC] ASDIRECTED Care 10/08/20 12:01 Active RT Aerosol Therapy [RC] ASDIRECTED Care 10/08/20 12:49 Active Sodium Chloride 0.9% [Saline Flush] Med 10/08/20 12:00 Active 10 ml FLUSH ASDIRECTED PRN Saline Lock Insert [OM.PC] Routine Oth 10/08/20 12:00 Ordered Medication Orders Sodium Chloride (Sodium Chloride 0.9% 10 Ml Syringe) 10 ml FLUSH ASDIRECTED PRN PRN Reason: Keep Vein Open Labs: Laboratory Tests 10/08/20 10/08/20 Range/Units 12:04 12:04 WBC 11.6 H D (4.0-11.0) K/uL RBC 4.32 (3.80-5.80) M/uL Hgb 11.4 L (11.5-16.5) g/dL Hct 39.1 (37.0-47.0) % MCV 91 (76-96) fL MCH 26.4 L (27.0-32.0) pg MCHC 29.2 L (31.0-35.0) g/dL RDW 18.7 H (11.0-16.0) % Plt Count 326 D (150-500) K/uL MPV 8.6 (6.0-10.0) fL Sodium 138 (136-145) mmol/L Potassium 5.0 (3.5-5.1) mmol/L Chloride 100 (98-107) mmol/L Carbon Dioxide 20.3 L D (21.0-32.0) mmol/L Anion Gap 22.7 H (5.0-15.0) mmol/L BUN 29 H (8-26) mg/dL Creatinine 1.63 H D (0.55-1.02) mg/dL Est Cr Clr Drug Dosing TNP Estimated GFR (MDRD) 30 L (>60) MLS/MIN BUN/Creatinine Ratio 17.8 (6-25) Glucose 205 H D (74-100) mg/dL Calcium 9.2 (8.5-10.1) mg/dL B-Natriuretic Peptide 41515 H D (0-450) pg/mL Meds: Medications Generic Name Dose Route Start Last Admin Trade Name Freq PRN Reason Stop Dose Admin Sodium Chloride 10 ml 10/08/20 12:00 Sodium Chloride 0.9% 10 Ml Syringe FLUSH ASDIRECTED PRN Keep Vein Open Discontinued Medications Generic Name Dose Route Start Last Admin Trade Name Freq PRN Reason Stop Dose Admin Albuterol 2.5 mg 10/08/20 12:01 10/08/20 12:01 Albuterol 0.083% 2.5 Mg/3 Ml [facility] 10/08/20 12:02 2.5 mg ONETIME ONE Administration Albuterol 2.5 mg 10/08/20 12:48 10/08/20 12:48 Albuterol 0.083% 2.5 Mg/3 Ml [facility] 10/08/20 12:49 2.5 mg ONETIME ONE Administration Atenolol 12.5 mg 10/08/20 15:49 10/08/20 15:53 Atenolol 25 Mg Tab PO 10/08/20 15:50 12.5 mg ONETIME ONE Administration Furosemide 10 mg 10/08/20 13:13 10/08/20 13:15 Furosemide 40 Mg/4 Ml Vial IVPUSH 10/08/20 13:14 10 mg NOW ONE Administration Furosemide 20 mg 10/08/20 14:58 10/08/20 15:00 Furosemide 20 Mg Tab PO 10/08/20 14:59 20 mg ONETIME ONE Administration Furosemide Confirm 10/08/20 14:57 10/08/20 15:03 Furosemide 20 Mg Tab Administered 10/08/20 14:58 Not Given Dose 20 mg .ROUTE .STK-MED ONE - Re-Assessments/Exams Free Text/Narrative Re-Assessment/Exam: was sating in mid 80's on 5 lit NC duoneb was given - helped with symptoms CXR - no infiltrates or effusion labs were ordered - significant elevation in BNP > 15k. IV lasix 20 mg was given - only 50ml UOP -- slightly tachycardia to 105 pbm atenolol 12.5 mg PO was given symptoms seems to be triggered by COPD and slight anxiety. heart failure seems to be getting worse but no e/o fluids overload today. discussed with patient and her family - her clinical presentation and labs findings - she understand that her heart is failing and nothing much to do bes ann taking her meds and managing it on a day by day basis. She accept the fast that her symptoms are terminal. Departure - Departure Time of Disposition: 16:48 Disposition: Home, Self-Care 01 Condition: Good Clinical Impression: COPD exacerbation, Sinus tachycardia Heart failure Qualifiers: Heart failure type: combined systolic and diastolic Heart failure chronicity: chronic Qualified Code(s): I50.42 - Chronic combined systolic (congestive) and diastolic (congestive) heart failure - Discharge Information *PRESCRIPTION DRUG MONITORING PROGRAM REVIEWED*: Not Applicable *COPY OF PRESCRIPTION DRUG MONITORING REPORT IN PATIENT [place]: Not Applicable Instructions: Chronic Obstructive Pulmonary Disease, [id number], Heart Failure Action Plan Referrals: PCP,None [Ordering Only Provider] - Forms: ED Department Discharge Sepsis Event Note (ED) - Focused Exam Vital Signs: Vital Signs Pulse Pulse Resp BP BP Pulse Ox 10/08/20 15:53 100 128/68 10/08/20 15:41 94 18 128/67 94 L 10/08/20 15:21 93 L 10/08/20 15:14 102 H 20 126/66 97 10/08/20 15:03 100 16 126/66 94 L 10/08/20 14:58 104 H 18 98 10/08/20 13:59 100 22 H 106/59 L 94 L 10/08/20 13:31 99 22 H 101/56 L 96 10/08/20 12:49 101/56 L 10/08/20 12:30 97 22 H 94/46 L 98 10/08/20 12:15 111 H 20 106/49 L 97 10/08/20 12:04 111 H 20 96/52 L 98 - Problem List & Annotations (1) COPD exacerbation SNOMED Code(s): 160292901 Code(s): J44.1 - CHRONIC OBSTRUCTIVE PULMONARY DISEASE W (ACUTE) EXACERBATION Status: Acute Priority: Medium Current Visit: Yes (2) Heart failure SNOMED Code(s): 14932452 Code(s): I50.9 - HEART FAILURE, UNSPECIFIED Status: Acute Priority: Medium Current Visit: Yes Qualifiers: Heart failure type: combined systolic and diastolic Heart failure chronicity: chronic Qualified Code(s): I50.42 - Chronic combined systolic (congestive) and diastolic (congestive) heart failure (3) Sinus tachycardia SNOMED Code(s): 54098562 Code(s): R00.0 - TACHYCARDIA, UNSPECIFIED Status: Acute Priority: Low Current Visit: Yes - Problem List Review Problem List Initiated/Reviewed/Updated: Yes - My Orders Last 24 Hours: My Active Orders 10/08/20 12:00 Sodium Chloride 0.9% [Saline Flush] 10 ml FLUSH ASDIRECTED PRN Saline Lock Insert [OM.PC] Routine 10/08/20 12:01 EKG Documentation Completion [RC] ASDIRECTED RT Aerosol Therapy [RC] ASDIRECTED 10/08/20 12:49 RT Aerosol Therapy [RC] ASDIRECTED - Assessment/Plan Last 24 Hours: My Active Orders 10/08/20 12:00 Sodium Chloride 0.9% [Saline Flush] 10 ml FLUSH ASDIRECTED PRN Saline Lock Insert [OM.PC] Routine 10/08/20 12:01 EKG Documentation Completion [RC] ASDIRECTED RT Aerosol Therapy [RC] ASDIRECTED 10/08/20 12:49 RT Aerosol Therapy [RC] ASDIRECTED Plan: - continue home meds as before - the only change is regarding her atenolol -- continue with 1 tabs daily, unless her SBP <90,, also give 1 extra tablet if HR > 100.
[2020-10-08] MEDS ORDERED: Furosemide 40 MG/4 ML VIAL IVPUSH ONE (13:13)
--- NOTE | 2020-10-08 14:15 | CR ---
Date of Service: 10/08/20 Clinical Data: SOB AP CHEST: Comparison is made to a prior exam dated 08/27/20. The heart size is stable. The pulmonary vasculature remains mildly prominent. There is persistent eventration of the right hemidiaphragm and persistent atelectatic/fibrotic changes in the right lung base. There are scattered reticular opacities throughout both lungs, No pneumothorax. No pleural effusions. [id number] [facility]
[2020-10-08] MEDS ORDERED: Furosemide 20 MG Tab ONE (14:57)
[2020-10-08] MEDS ORDERED: Furosemide 20 MG Tab PO ONE (14:58)
[2020-10-08] MEDS ORDERED: Atenolol 25 MG Tab PO ONE (15:49)
[2020-10-08 16:49] VITALS: BP 121/73; PULSE 110
== END 2020-10-08 17:15 | disposition home or self-care (01) ==
LOC: LB.ED 11:52
DX: I11.0 Hypertensive heart disease with heart failure (principal); I50.42 Chronic combined systolic (congestive) and diastolic (congestive) heart failure; J44.1 Chronic obstructive pulmonary disease with (acute) exacerbation; R00.0 Tachycardia, unspecified; E78.00 Pure hypercholesterolemia, unspecified; K21.9 Gastro-esophageal reflux disease without esophagitis; M19.90 Unspecified osteoarthritis, unspecified site; Z88.0 Allergy status to penicillin; Z79.82 Long term (current) use of aspirin; Z79.899 Other long term (current) drug therapy
CPT/HCPCS: 36415; 71045; 80048; 83880; 85027; 93005; 96374; 99285; A9270; J1940

== ENCOUNTER 2020-10-13 17:41 | Emergency (ER) | payer MEDICARE, OTHER ==
--- NOTE | 2020-10-13 18:18 | EDM.PDOC ---
ED HPI GENERAL MEDICAL PROBLEM - General Chief Complaint: Cardiovascular Problem Stated Complaint: syncope Time Seen by Provider: 10/13/20 17:45 Source of Information: Reports: Family, Old Records, RN ([facility] staff) - History of Present Illness INITIAL COMMENTS - FREE TEXT/NARRATIVE: pt presents to ER accompanied by [facility] staff who state pt had syncopized while seated with family. family provides history that pt had intermittently felt "fine" throughout the day but just prior to syncopizing pt stated she was quite nauseated and had 1-2 episodes of dry heaves. history limited by unresponsiveness. no recent illnesses. chart review shows medical history of COPD, PNA, CHF, UTI Onset: Today, Sudden Onset Date: 10/13/20 Onset Time: 17:30 - Related Data Allergies Allergy/AdvReac Type Severity Reaction Status Date / Time amoxicillin Allergy Cannot Verified 06/10/20 14:25 Remember Penicillins Allergy Cannot Verified 06/10/20 14:25 Remember Home Meds: Home Meds Acetaminophen [Tylenol Arthritis] 1 tab PO BID 04/19/16 [History] Aspirin [Kylie Chewable Aspirin] 81 mg PO DAILY 04/19/16 [History] atorvaSTATin [Lipitor] 10 mg PO BEDTIME 04/08/20 [History] Fluticasone/Salmeterol [Advair 100-50] 1 puff IH BID 30 Days #1 diskus 04/10/20 [Rx] Tiotropium [Spiriva HandiHaler] 18 mcg INH DAILY #30 cap 04/10/20 [Rx] Albuterol/Ipratropium [DuoNeb 3.0-0.5 MG/3 ML] 1 vial INH Q4H 06/10/20 [History] Calcium Carbonate [Calcium] 1 tab PO DAILY 06/10/20 [History] Fluticasone Propionate [Flonase] 2 spray INH DAILY 06/10/20 [History] Loratadine [Claritin] 1 tab PO DAILY 06/10/20 [History] Meclizine [Antivert] 12.5 mg PO Q24H PRN 06/10/20 [History] Pantoprazole Sodium [Protonix] 1 tab PO DAILY 06/10/20 [History] atenoloL [Atenolol] 0.5 tab PO DAILY 06/10/20 [History] Furosemide [Lasix] 20 mg PO DAILY #30 tablet 06/11/20 [Rx] levoFLOXacin [Levaquin] 750 mg PO Q48H #3 tab 06/11/20 [Rx] methylPREDNISolone [Medrol Dose Pack] 4 mg PO DAILY #21 dospk 06/11/20 [Rx] Past Medical History HEENT History: Reports: Allergic Rhinitis, Cataract, Impaired Vision, Macular Degeneration Cardiovascular History: Reports: Heart Failure, High Cholesterol, Hypertension Other Cardiovascular History: 3cm aortic bulging. 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: Musculoskeletal History: Reports: Arthritis, Back Pain, Chronic, Fracture, Osteoarthritis - Infectious Disease History Infectious Disease History: Reports: C-Difficile, Chicken Pox, Measles, Mumps, Shingles - Past Surgical History HEENT Surgical History: Reports: Cataract Surgery, Radiocarotid Ectomy Cardiovascular Surgical History: Reports: Carotid Endarterectomy Respiratory Surgical History: Reports: None GI Surgical History: Reports: Colonoscopy Musculoskeletal Surgical History: Reports: Other (See Below) Other Musculoskeletal Surgeries/Procedures:: PLATE IN RIGHT ANKLE Social & Family History - Family History Family Medical History: No Pertinent Family History OBGYN: Reports: None Neurological: Reports: None Psychiatric: Reports: None Endocrine/Metabolic: Reports: None Hematologic: Reports: None Oncologic: Reports: Breast - Caffeine Use Caffeine Use: Reports: Coffee ED ROS GENERAL - Review of Systems Review Of Systems: See Below Reason Not Obtained: pt unresponsive ED EXAM, GENERAL - Physical Exam Exam: See Below Exam Limited By: Altered Mental Status General Appearance: Other (pallor, agonally breathing) Head: Atraumatic, Normocephalic Respiratory/Chest: Other (agonal breathing) Cardiovascular: Other (no central or peripheral pulses noted.) Peripheral Pulses: 0: Carotid (L), Carotid (R), Radial (L), Radial (R), Posterior Tibial (L), Posterior Tibial (R) Neurological: Unresponsive Skin Exam: Cyanosis, Pallor Course - Re-Assessments/Exams Free Text/Narrative Re-Assessment/Exam: 10/13/20 1755: pt on initial assessment pt was being placed in a gown by nursing staff, they stated pt had a syncopal episode while in the NH with family visiting. pt was noticeably agonally breathing and had no heart tones or lung sounds by auscultation. pt had no peripheral pulses and was significantly cold to extremities and pallor to her face. at family request and by NH documentation pt DNR and family requested no other testing. EKG was completed and showed asystole. Departure - Departure Time of Disposition: 18:00 Disposition: 20 Preliminary Cause of *Q: Cardiac Arrest Clinical Impression: Cardiac arrest due to underlying cardiac condition Referrals: PCP,None [Primary Care Provider] - - Problem List & Annotations (1) Cardiac arrest due to underlying cardiac condition SNOMED Code(s): 545397183 Code(s): I46.2 - CARDIAC ARREST DUE TO UNDERLYING CARDIAC CONDITION Status: Acute Current Visit: Yes - Problem List Review Problem List Initiated/Reviewed/Updated: Yes - Assessment/Plan Assessment:: assessment: cardiac arrest due to underlying cardiac problems plan: pt is DNR by documentation and family request. pt in ED in the company of son and .
== END 2020-10-13 18:00 | disposition expired ==
LOC: LB.ED 17:41
DX: I46.9 Cardiac arrest, cause unspecified (principal); I11.0 Hypertensive heart disease with heart failure; I50.9 Heart failure, unspecified; E78.00 Pure hypercholesterolemia, unspecified; J44.9 Chronic obstructive pulmonary disease, unspecified; K21.9 Gastro-esophageal reflux disease without esophagitis; M19.90 Unspecified osteoarthritis, unspecified site; Z88.0 Allergy status to penicillin; Z79.82 Long term (current) use of aspirin; Z79.899 Other long term (current) drug therapy
CPT/HCPCS: 99285